=== PATIENT | female | born 2000 | race Caucasian/White ===

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

== ENCOUNTER 2020-01-05 13:41 | Emergency (ER) | payer OTHER ==
[~2020-01-05] VITALS: Ht 165.1 cm; Wt 108.0 kg
[2020-01-05] MEDS ORDERED: ARIP1TAB2 (13:50)
[2020-01-05] MEDS ORDERED: DULO1CAP6 (13:50)
[2020-01-05] MEDS ORDERED: NS 1,000 ML IV ONE (14:15)
[2020-01-05 14:42] LABS: BASO # 0.1 10^3/uL (0.0-0.2); BASO % 0.5 % (0.0-1.0); EOS # 0.4 10^3/uL (0.0-0.5); EOS % 4.4 % (0.0-3.0); HEMATOCRIT 42.2 % (36.0-47.0); HEMOGLOBIN 14.4 g/dl (12.0-15.5); LYMPH # 2.3 10^3/uL (1.5-5.0); LYMPH % 23.7 % (24.0-44.0); MEAN CORPUSCULAR HEMOGLOBIN 30.3 pg (27.0-33.0); MEAN CORPUSCULAR HGB CONC 34.1 g/dl (32.0-36.5); MEAN CORPUSCULAR VOLUME 88.7 fl (80.0-96.0); MONO # 0.6 10^3/uL (0.0-0.8); NEUTROPHILS # 6.4 10^3/uL (1.5-8.5); NEUTROPHILS % 65.2 % (36.0-66.0); PLATELET COUNT, AUTOMATED 263 10^3/uL (150-450); RED BLOOD COUNT 4.76 10^6/uL (4.00-5.40); WHITE BLOOD COUNT 9.8 10^3/uL (4.0-10.0)
[2020-01-05 15:18] LABS: AMPHETAMINES URINE REFLEX NEGATIVE (NEGATIVE); BARBITURATES URINE REFLEX NEGATIVE (NEGATIVE); BENZODIAZEPINES URINE REFLEX NEGATIVE (NEGATIVE); COCAINE METABOLITE URINE REFLE NEGATIVE (NEGATIVE); METHADONE URINE REFLEX NEGATIVE (NEGATIVE); OPIATES URINE REFLEX NEGATIVE (NEGATIVE); PHENCYCLIDINE URINE REFLEX NEGATIVE (NEGATIVE)
[2020-01-05 15:26] LABS: CANNABINOIDS URINE REFLEX PENDING CONFIRMATION (NEGATIVE)
[2020-01-05 15:34] LABS: ALBUMIN 3.5 GM/DL (3.2-5.2); ALT/SGPT 25 U/L (12-78); BILIRUBIN,DIRECT < 0.1 MG/DL (0.0-0.2); BILIRUBIN,TOTAL 0.5 MG/DL (0.2-1.0); HCG, SERUM QUANTITATIVE 78802 MIU/ML; LIPASE 56 U/L (73-393); TOTAL PROTEIN 7.2 GM/DL (6.4-8.2)
[2020-01-05 16:44] VITALS: BP 119/61
--- NOTE | 2020-01-05 17:03 | REP ---
HISTORY: Abdominal pain. Multiple ultrasonographic images of the uterus show an anechoic structure within the uterus with increased echo surrounding it consistent with a decidual reaction. Within the gestational sac there is echogenic material consistent with a pole, the mean crown rump length measurement of which is consistent with an 8 week 3 day gestational. Based on that the estimated date of delivery is 08/13/2020. Doppler interrogation of the heart shows a heart rate of 183 beats per minute. No chorionic or subchorionic abnormality was noted. Evaluation of the maternal adnexal spaces showed no abnormalities. IMPRESSION: Early OB ultrasound as described above. Electronically Signed by Vishal Adamson DO 01/05/2020 05:07 P
== END 2020-01-05 16:50 | disposition home or self-care (01) ==
LOC: M ED 13:41
DX: Z32.01 Encounter for pregnancy test, result positive (principal); R11.2 Nausea with vomiting, unspecified; E11.9 Type 2 diabetes mellitus without complications; F33.9 Major depressive disorder, recurrent, unspecified; F41.9 Anxiety disorder, unspecified; G47.30 Sleep apnea, unspecified; Z79.899 Other long term (current) drug therapy; Z3A.08 8 weeks gestation of pregnancy; F17.210 Nicotine dependence, cigarettes, uncomplicated
CPT/HCPCS: 76801; 80047; 80076; 80307; 81001; 83690; 84702; 85025; 93976; 96360; 99284; G0480

== ENCOUNTER → 2020-02-14 | Outpatient (REF) | payer OTHER ==
[~2020-02-14] MED LIST changes: +ARIP1TAB2; +DULO1CAP6
== END ==
LOC: M PLALAB 10:25
PROVIDERS: ATTEND Advanced Practice Midwife
DX: O99.211 Obesity complicating pregnancy, first trimester (principal)

== ENCOUNTER → 2020-03-21 | Outpatient (CLI) | payer OTHER ==
--- NOTE | 2020-03-21 15:44 | REP ---
OBSTETRIC SONOGRAPHY: HISTORY: Supervision of for anatomy. FINDINGS: Scanning through the gravid uterus demonstrates a single living intrauterine gestation in a cephalic lie. motion is observed and heart rate is recorded at 147 beats per minute. An anterior grade 1 placenta is seen without evidence of previa or abruption. Amniotic fluid is subjectively normal. Closed cervical length is measured at 3.8 cm viewed transabdominally. No extrauterine abnormality is observed. There has been appropriate interval growth. A linear soft tissue band is visualized at the posterior aspect of the placenta. Question amniotic sheet. There is an echogenic focus in the left ventricle heart with left and right ventricular outflow tract views, face and profile, diaphragm, left-sided stomach, abdominal wall cord insertion, three-vessel cord, kidneys and bladder, spine, upper and lower extremities. BIOMETRY CHART: BPD 4.4 cm = 19 weeks 1 day HC 16.2 cm = 19 weeks 0 days AC 13.2 cm = 18 weeks 5 days FL 3.1 cm = 19 weeks 4 days HL 3.0 cm = 19 weeks 6 days HC/AC ratio normal 1.22 Cephalic index normal 0.75. Estimated weight 274 grams, 0 pounds 9 ounces, 41st percentile for 19 weeks 2 days. IMPRESSION: Single living intrauterine gestation at 19 weeks 0 days by today's composite sonographic criteria. Expected gestational age estimate based on prior sonography is 19 weeks 2 days. LORRIE by prior sonography August 16, 2020. There is a small echogenic focus in the left ventricle likely chordae tendineae. There is a thick band like structure at the posterior aspect of the placenta consistent with an amniotic sheet. Electronically Signed by Freddie Gramajo MD 03/21/2020 04:01 P
== END ==
LOC: M WHC 13:20
PROVIDERS: ATTEND Advanced Practice Midwife
DX: O99.212 Obesity complicating pregnancy, second trimester (principal); E66.9 Obesity, unspecified; Z3A.19 19 weeks gestation of pregnancy

== ENCOUNTER → 2020-06-07 | Outpatient (CLI) | payer OTHER ==
[2020-06-07 17:41] LABS: HEMATOCRIT 40.1 % (36.0-47.0); MEAN CORPUSCULAR HEMOGLOBIN 30.9 pg (27.0-33.0); MEAN CORPUSCULAR HGB CONC 32.4 g/dl (32.0-36.5); MEAN CORPUSCULAR VOLUME 95.2 fl (80.0-96.0); PLATELET COUNT, AUTOMATED 265 10^3/uL (150-450); RED BLOOD COUNT 4.21 10^6/uL (4.00-5.40); WHITE BLOOD COUNT 12.2 10^3/uL (4.0-10.0)
== END ==
LOC: M PLALAB 13:47
PROVIDERS: ATTEND Advanced Practice Midwife
DX: O99.212 Obesity complicating pregnancy, second trimester (principal)

== ENCOUNTER → 2020-07-17 | Outpatient (REF) | payer OTHER | LOC: M SFHCWAGY 13:14 | PROVIDERS: ATTEND Advanced Practice Midwife | DX: O99.213 Obesity complicating pregnancy, third trimester (principal) ==

== ENCOUNTER 2020-08-15 11:47 | Inpatient (IN) | payer OTHER ==
[~2020-08-15] VITALS: Ht 165.1 cm; Wt 114.5 kg
[2020-08-15] VITALS (10 sets, daily range): BP systolic 100–141; BP diastolic 55–79
[2020-08-15] MEDS ORDERED: CLAR10CA3 PO (12:11)
[2020-08-15] MEDS ORDERED: PRENTAB9 PO (12:14)
[2020-08-15] MEDS: LR 1,000 ML IV SCH (12:29)
[2020-08-15] MEDS ORDERED: LACTATED RINGER'S 1000 ML IV STA (12:29)
[2020-08-15] MEDS ORDERED: miSOPROStol 50 MCG 1/2 TAB (S0191) PV ONE (12:45)
[2020-08-15] MEDS ORDERED: PROMETHAZINE INJ 25 MG/ML VIAL (J2550) IV PRN (13:15)
[2020-08-15] MEDS ORDERED: BUTORPHANOL 2 MG/ML INJ (J0595) IV PRN (13:15)
[2020-08-15 14:04] LABS: HEMATOCRIT 39.8 % (36.0-47.0); HEMOGLOBIN 12.8 g/dl (12.0-15.5); MEAN CORPUSCULAR HEMOGLOBIN 30.2 pg (27.0-33.0); MEAN CORPUSCULAR HGB CONC 32.2 g/dl (32.0-36.5); MEAN CORPUSCULAR VOLUME 93.9 fl (80.0-96.0); PLATELET COUNT, AUTOMATED 265 10^3/uL (150-450); RED BLOOD COUNT 4.24 10^6/uL (4.00-5.40); WHITE BLOOD COUNT 9.2 10^3/uL (4.0-10.0)
--- NOTE | 2020-08-15 14:35 | HPEPDOC ---
Obstetrical History & Physical General Date of Admission Aug 15, 2020 at 11:47 History of Present Illness Marya is a 20yo with SIUP at 40w2d by 1st trimester u/s presenting today for scheduled elective IOL. She feels well overall, just nervous. No lof, vb, regular ctx. Good movement. Chief Complaint: Induction of labor Information Provided By: Patient Care Care: Good Care Dating Final EDC: Aug 13, 2020 Final EDC by: 1st trimester (US) Antepartum Course Diagnos(e)s Obesity, early 1hr glucola 121 Past Medical History Past Obstetrical History : Past Obstetrical History: Primgravida Past Medical History Medical History Obesity, ALBER (has CPAP), PCOS with oligomenorrhea, depression/anxiety/bipolar disorder Surgical History: Denies/None Family History Significant Family History: Other (maternal grandma breast cancer, diabetes on father's side) Social History Marital Status: Single Family situation: Spouse/partner home Psychosocial History: Anxiety, Bipolar, Depression * Smoker: former Smoker (quit with ) Drugs: marijuana (prior to ) Allergies Coded Allergies: No Known Allergies (Unverified , 03/07/17) Medications Scheduled No.137/Iron/Folic Acd ( Vitamin Tablet) 1 Each Tablet, 1 TAB PO DAILY Scheduled PRN Loratadine (Claritin) 10 Mg Capsule, 10 MG PO PRN PRN for CONGESTION Physical Examination Physical Examination GENERAL: Alert and oriented times three. BREAST: . ABDOMEN: Gravid and non-tender to touch. Obese. FETUS: Is vertex by bedside TAUS EXTREMITIES: trace edema BLE Pertinent Laboratoy Data Blood Type: A+ RBC Antibody Screen: Negative HIV: Negative Hepatitis B: Negative Hepatitis C: Negative Rapid Plasma Reagin: Nonreactive Rubella: Immune Chlamydia/Gonorrhea: Negative Group B Streptococcus: Negative Glucose Tolerance Test: 97 Anatomy Ultrasound Ultrasound Date: Mar 21, 2020 Placenta Location: Anterior Normal Anatomy: Yes (EIF) Placenta Previa: No (amniotic sheet questionably present as a band near the edge of placenta) Steroid Therapy Steroid Therapy: No Vaginal Examination Dilation: Fingertip Effacement: 70% Station: -3 Cervical Consistency: Soft Cervical Position: Middle Presentation: Cephalic presentation (by TAUS) Assessment Heart Rate (FHR): 140 Variability: Moderate Accelerations: Positive Decelerations: None Tocometer Contractions: Yes Frequency: irregular Assessment/Plan Assessment Marya is a 20yo with SIUP at 40w2d by 1st trimester u/s presenting today for scheduled elective IOL. Cephalic by TAUS. Vitals wnl, benign exam. SCE ft/75/-3. 50mcg cytotec placed vaginally. Cat I FHRT with no ctx. /PMhx significant for: Obesity, ALBER (has CPAP), PCOS with oligome norrhea, depression/anxiety/bipolar disorder (no meds) Plan Admit and orient. 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 Diet: regular for lunch then clear liquids Group B Streptococcus (GBS) negative Labs and intravenous (IV) per unit protocol. Counseled on cytotec, Pitocin and induction of labor (IOL). Lactated Ringers (LR): Bolus 800 mL, then at 125 mL/hr. Anticipate normal spontaneous delivery () Candidate for epidural in active labor, stadol/phenergan IV prn in latent labor Sully Sood MD Aug 15, 2020 13:12
[2020-08-15] MEDS ORDERED: ACETAMINOPHEN 500 MG TAB PO PRN (18:30)
[2020-08-15] MEDS ORDERED: OXYTOCIN DRIP 30 UNITS in IV 1 EA IV SCH (18:45)
--- NOTE | 2020-08-15 18:49 | IPNPDOC ---
Text Note Date of Service The patient was seen on 08/15/20. NOTE Intrapartum Note Pt doing well now 4hr after PV cytotec 50mcg. Feels urge to urinate frequently, will check UA/Ucx when sinha placed later for epidural just to rule out UTI (she is up to bathroom every 20min or so trying to void)- could just be ctx, but will ensure not infectious etiology. Has headache 11/06, requests tylenol. Vitals wnl, afebrile Cat I FHRT with ctx q1-2min SCE: /-3, sinha cervical bulb placed with 40cc NS Plan to initiate pitocin per protocol and titrate up to 6mu while sinha cervical bulb is in place, then once sinha cervical bulb comes out, can continue to titrate up per protocol to adequate ctx pattern CEFM Will continue to closely observe Safe to proceed Sully Sood MD VS,Amarilis, I+O VS, Amarilis I+O Laboratory Tests 08/15/20 13:40 Vital Signs Date Time Temp Pulse Resp B/P (MAP) Pulse Ox O2 Delivery O2 Flow Rate FiO2 08/15/20 15:01 97.8 88 18 126/79 (95) Sully Sood MD Aug 15, 2020 18:49
[2020-08-15 20:28] LABS: AMORPHOUS SEDIMENT SMALL (NEGATIVE); APPEARANCE, URINE CLOUDY (CLEAR); BACTERIA, URINE AUTO NEGATIVE (NEGATIVE); BILIRUBIN, URINE AUTO NEGATIVE (NEGATIVE); BLOOD, URINE BLOOD 1+ (NEGATIVE); COLOR, URINE YELLOW (YELLOW); GLUCOSE, URINE (UA) AUTO NEGATIVE (NEGATIVE); KETONE, URINE AUTO NEGATIVE (NEGATIVE); LEUKOCYTE ESTERASE, URINE AUTO NEGATIVE (NEGATIVE); MUCUS, URINE SMALL (NEGATIVE); NITRITE, URINE AUTO NEGATIVE (NEGATIVE); PROTEIN, URINE AUTO NEGATIVE (NEGATIVE); RBC, URINE AUTO 2 /HPF (0-3); SPECIFIC GRAVITY URINE AUTO 1.012 (1.002-1.035); SQUAMOUS EPITHELIAL CELL UR AU 6 /HPF (0-6); UROBILINOGEN, URINE AUTO 0.2 mg/dL (0.0-2.0); WBC, URINE AUTO 1 /HPF (0-3)
[2020-08-16] VITALS (47 sets, daily range): BP systolic 103–167; BP diastolic 52–99
--- NOTE | 2020-08-16 06:42 | IPNPDOC ---
Text Note Date of Service The patient was seen on 08/16/20. NOTE Intrapartum Note Marya has not been coping adequately overnight. She received IV stadol/phenergan for pain and slept a short duration. Oropeza cervical bulb came out at 2350. RN checked SCE at 0455 and she was 4/75/-3. Pitocin was started at 0244 and titrated up to 4mu, but she has been extremely anxious and hard to keep baby on monitor since she moves so much. This morning she adamantly wants to get into the tub. Vitals wnl, afebrile Overall Cat I FHRT, +accels, -decels, mod jagdish Discussed with patient that we can stop pitocin, let her get into the tub for a bit, she can have a light breakfast, and then we will restart pitocin with plan to titrate up to adequacy. Safe to proceed Sully Sood MD VS,Amarilis, I+O VS, Amarilis I+O Laboratory Tests 08/15/20 13:40 Vital Signs Date Time Temp Pulse Resp B/P (MAP) Pulse Ox O2 Delivery O2 Flow Rate FiO2 08/16/20 05:35 85 20 117/71 (86) 08/15/20 23:02 97.8 I&O- Last 24 Hours up to 6 AM 08/16/20 06:00 Intake Total 1600 ml Output Total 1150 ml Balance 450 ml Sully Sood MD Aug 16, 2020 06:42
--- NOTE | 2020-08-16 08:49 | IPNPDOC ---
Text Note Date of Service The patient was seen on 08/16/20. NOTE Progress Has had time in the tub and breakfast. Cat I tracing, rare UC SVE /-3, far posterior Resume pitocin. Will obtain early epidural due to pt fear of discomfort. Answered many questions RT labor and delivery VS,Fishbone, I+O VS, Fishbone, I+O Laboratory Tests 08/15/20 13:40 Vital Signs Date Time Temp Pulse Resp B/P (MAP) Pulse Ox O2 Delivery O2 Flow Rate FiO2 08/16/20 07:28 97.5 106 18 136/81 (99) Room Air I&O- Last 24 Hours up to 6 AM 08/16/20 06:00 Intake Total 1600 ml Output Total 1150 ml Balance 450 ml Gloria Smith CNM Aug 16, 2020 08:49
[2020-08-16] MEDS ORDERED: FENTANYL 2MCG/ML ROPIVACAINE 0.2% IN 0.9% NACL 100ML IVBAG As Ordered ONE (09:08)
[2020-08-16] MEDS ORDERED: EPIDURAL COMMENT XX SCH (10:45)
[2020-08-16] MEDS ORDERED: ONDANSETRON 4MG/2ML VIAL IV PRN (10:45)
[2020-08-16] MEDS ORDERED: ePHEDrine SULFATE 25 MG/5 ML(5MG/ML) SYRINGE IV PRN (10:45)
[2020-08-16] MEDS ORDERED: EPIDURAL/PCA KEYS XX PRN (10:45)
[2020-08-16] MEDS ORDERED: REFRIGERATOR IV KEYS XX PRN (10:45)
[2020-08-16] MEDS ORDERED: LACTATED RINGER'S 1000 ML IV PRN (10:45)
[2020-08-16] MEDS ORDERED: NALOXONE INJ 0.4MG/1ML VIAL (J2310 PER 1MG) IV PRN (10:45)
[2020-08-16] MEDS: FENTANYL/ROPIVACAINE/NACL BAG 100 ML EPIDURAL SCH ×2 (10:45→17:03)
[2020-08-16] MEDS ORDERED: diphenhydrAMINE 50MG/ML VIAL (J1200) IV PRN (10:45)
--- NOTE | 2020-08-16 15:16 | IPNPDOC ---
Text Note Date of Service The patient was seen on 08/16/20. NOTE Progress Remains comfortable with epidural UC difficult to trace due to habitus Pitocin 8mu Cat I tracing AROM large amount clear fluid IUPC and FSE placed. VS,Fishbone, I+O VS, Fishbone, I+O Vital Signs Date Time Temp Pulse Resp B/P (MAP) Pulse Ox O2 Delivery O2 Flow Rate FiO2 08/16/20 13:29 97 107/57 (74) 08/16/20 11:02 96.7 20 08/16/20 07:28 Room Air I&O- Last 24 Hours up to 6 AM 08/16/20 06:00 Intake Total 1600 ml Output Total 1150 ml Balance 450 ml Gloria Smith CNM Aug 16, 2020 15:16
[2020-08-16] MEDS: LR 1,000 ML IV SCH (21:26)
[2020-08-16] MEDS ORDERED: LACTATED RINGER'S 1000 ML IV STA (22:22)
--- NOTE | 2020-08-16 22:26 | IPNPDOC ---
Text Note Date of Service The patient was seen on 08/16/20. NOTE Progress Pitocin @ 14mu UC 2-3minutes apart x 60+ seconds FH 145, Cat I SVE unchanged Pitocin off. Dr Hernandez alerted to arrest of dilation VS,Fishbone, I+O VS, Fishbone, I+O Vital Signs Date Time Temp Pulse Resp B/P (MAP) Pulse Ox O2 Delivery O2 Flow Rate FiO2 08/16/20 20:09 112 18 117/71 (86) 08/16/20 19:23 97.2 98 Room Air I&O- Last 24 Hours up to 6 AM 08/16/20 06:00 Intake Total 1600 ml Output Total 1150 ml Balance 450 ml Gloria Smith CNM Aug 16, 2020 22:26
[2020-08-16] MEDS ORDERED: AZITHROMYCIN INJ 500 MG, VIAL MATE ADAPTER 1 EACH in D5W 250 ML IV ONE (22:30)
[2020-08-16] MEDS ORDERED: ceFAZolin SOD 2 GM in IV 1 EA IV ONE (22:30)
[2020-08-16] MEDS ORDERED: BICITRA 30ML SOLN UDC PO ONE (22:30)
[2020-08-16] MEDS ORDERED: KETOROLAC 60MG 2ML VIAL As Ordered ONE (22:51)
[2020-08-16] MEDS ORDERED: PHENYLephrine HCL 500 MCG/5 ML (100MCG/ML) SYRINGE (J2370) As Ordered ONE (22:51)
[2020-08-16] MEDS ORDERED: dexameTHASONE 4 MG/ML 1ML VIAL (J1100 PER 1MG) As Ordered ONE (22:51)
[2020-08-16] MEDS ORDERED: ONDANSETRON 4MG/2ML VIAL As Ordered ONE (22:51)
[2020-08-16] MEDS ORDERED: ePHEDrine SULFATE 25 MG/5 ML(5MG/ML) SYRINGE As Ordered ONE (22:51)
[2020-08-16] MEDS ORDERED: OXYTOCIN 30 UNITS IN 0.9% NaCl 500ML IV BAG (J2590) As Ordered ONE (22:52)
[2020-08-16] MEDS ORDERED: OXYTOCIN INJ 10 UNITS/ML VIAL (J2590) As Ordered ONE (22:52)
[2020-08-16] MEDS ORDERED: MORPHINE PRES-FREE INJ 10 MG/10 ML VIAL (J2274) As Ordered ONE (22:59)
[2020-08-16] MEDS ORDERED: METOCLOPRAMIDE INJ 10MG/2ML VIAL (J2765 PER 1) As Ordered ONE (23:21)
[2020-08-16] MEDS ORDERED: KETAMINE HCL 200 MG/20 ML VIAL As Ordered ONE (23:30)
[2020-08-16] MEDS ORDERED: MIDAZOLAM INJ 2MG/2ML VIAL (J2250 PER 1MG) As Ordered ONE (23:30)
[2020-08-16] MEDS ORDERED: ESMOLOL INJ 100MG/10ML VIAL As Ordered ONE (23:39)
[2020-08-16] MEDS ORDERED: OXYTOCIN DRIP 30 UNITS in IV 1 EA IV SCH (23:56)
[2020-08-16] MEDS ORDERED: METHYLERGONOVINE MALEATE 0.2 MG/ML VIAL (J2210) IM STA (23:59)
[2020-08-17] VITALS (9 sets, daily range): BP systolic 118–140; BP diastolic 69–90
[2020-08-17] MEDS ORDERED: MEASLES,MUMPS,RUBELLA VACCINE INJ (MMR-II) (90707) SC SCH
[2020-08-17] MEDS ORDERED: RHOGAM 300 MCG (1500 IU) INJ (J2790) IM SCH
[2020-08-17] MEDS ORDERED: PERCOCET 5MG/325MG TAB PO PRN
[2020-08-17] MEDS ORDERED: DOCUSATE SODIUM 100 MG CAP PO PRN
--- NOTE | 2020-08-17 00:08 | ROOPDOC ---
[facility] Report Of Operation Report of Operation DATE OF PROCEDURE: 08/16/20 Report of operation Preoperative diagnosis: 40+ weeks, arrest of dilation Postoperative diagnosis: same Procedure: Primary low transverse section Surgeon: Rogelio Champagne M.D. Asst.: Larry Lyon MD EBL: 600 ml. Urine output: 100 mL's. Findings: 7 lbs. 3 oz. female , Apgars 8 and 9 g normal uterus, fallopian tubes, ovaries. Occiput posterior and asynclitic vertex. Operative summary: Patient taken to the operative room where epidural anesthesia was adequate. She is prepped draped sterile fashion in the supine position. A Oropeza catheter was placed. A Pfannenstiel skin incision was made with scalpel. Fascia was incised and extended bilaterally. The peritoneal cavity was entered. A Mobius retractor was placed. A bladder flap was created. A curvilinear incision was made in lower uterine segment until Clear fluid was noted. The incision was extended manually. The was delivered from the vertex position without difficulty. Cord was double clamped and cut. The infant was handed waiting nurses. . The placenta was expressed. Uterus was closed with O- Vicryl in a running locked fashion. A second imbricating layer of Vicryl was placed. Peritoneum was closed with 2-0 Vicryl a running fashion. Fascia was closed with 0 Vicryl in running fashion. Skin was closed 4-0 Monocryl subcuticular sutures. Sponge, instrument and needle counts were correct. Larry Lyon MD, assisted with all aspects of the procedure. He helped each layer of the incision and deliver the fetus. ROGELIO CHAMPAGNE MD Aug 17, 2020 00:08
[2020-08-17] MEDS ORDERED: oxyCODONE 5MG TAB PO PRN (01:00)
[2020-08-17] MEDS ORDERED: ONDANSETRON 4MG/2ML VIAL IV PRN ×3 (01:00→01:30)
[2020-08-17] MEDS ORDERED: diphenhydrAMINE 50MG/ML VIAL (J1200) IV PRN ×2 (01:00→01:30)
[2020-08-17] MEDS ORDERED: MEPERIDINE INJ 25 MG/ML VIAL (J2175) IV PRN (01:00)
[2020-08-17] MEDS ORDERED: fentaNYL 100 MCG/2 ML INJECTION (J3010) IV PRN (01:00)
[2020-08-17] MEDS ORDERED: HYDROMORPHONE HCL 0.5 MG/ 0.5 ML SYRINGE (J1170 PER 1) IV PRN (01:00)
[2020-08-17] MEDS ORDERED: NALOXONE INJ 0.4MG/1ML VIAL (J2310 PER 1MG) IV PRN ×2 (01:30)
[2020-08-17] MEDS ORDERED: NALBUPHINE HCL 10 MG/ML AMP (J2300) IV PRN (01:30)
[2020-08-17] MEDS ORDERED: METOCLOPRAMIDE INJ 10MG/2ML VIAL (J2765 PER 1) IV PRN (01:30)
[2020-08-17] MEDS: LR 1,000 ML IV SCH ×2 (02:43→10:11)
[2020-08-17] MEDS: KETOROLAC 30 MG/ML 1ML VIAL IV SCH ×3 (04:55→16:44)
--- NOTE | 2020-08-17 07:11 | IPNPDOC ---
Text Note Date of Service The patient was seen on 08/17/20. NOTE Postop Reports adequate pain management. . Oropeza draining clear yellow urine. VSS, afebrile, normotensive Breasts soft, nipples intact Fundus firm Dressing dry and intact Lochia rubra scant without odor PO #1 Gradually advance diet and activity. Anticipate D/C in am VS,Fishbone, I+O VS, Fishbone, I+O Vital Signs Date Time Temp Pulse Resp B/P (MAP) Pulse Ox O2 Delivery O2 Flow Rate FiO2 08/17/20 06:00 96.6 74 18 118/81 (93) 97 Room Air I&O- Last 24 Hours up to 6 AM 08/17/20 05:59 Intake Total 1500 ml Output Total 1715 ml Balance -215 ml Gloria Smith CNM Aug 17, 2020 07:11
[2020-08-17 07:16] LABS: HEMATOCRIT 36.4 % (36.0-47.0); HEMOGLOBIN 11.9 g/dl (12.0-15.5); MEAN CORPUSCULAR HEMOGLOBIN 30.9 pg (27.0-33.0); MEAN CORPUSCULAR HGB CONC 32.7 g/dl (32.0-36.5); MEAN CORPUSCULAR VOLUME 94.5 fl (80.0-96.0); PLATELET COUNT, AUTOMATED 252 10^3/uL (150-450); RED BLOOD COUNT 3.85 10^6/uL (4.00-5.40); WHITE BLOOD COUNT 19.9 10^3/uL (4.0-10.0)
[2020-08-17] MEDS ORDERED: PRENATAL VITAMINS CHEWABLE TABLET PO SCH (09:00)
[2020-08-17] MEDS: PERCOCET 5MG/325MG TAB PO PRN (15:53)
[2020-08-17] MEDS ORDERED: SLF 3 ML SYR IV PRN (18:00)
[2020-08-17] MEDS: SLF 3 ML SYR IV SCH (22:15)
[2020-08-18] MEDS: PERCOCET 5MG/325MG TAB PO PRN (00:30)
[2020-08-18] MEDS ORDERED: IBUPROFEN 800 MG TAB PO SCH (01:00)
[2020-08-18 02:00] VITALS: BP 124/80
[2020-08-18 06:00] VITALS: BP 116/68
[2020-08-18] MEDS: SLF 3 ML SYR IV SCH (06:00)
[2020-08-18] MEDS ORDERED: OXYC1TAB23 PO (09:35)
[2020-08-18] MEDS ORDERED: IBUP80TA PO (09:35)
--- NOTE | 2020-08-18 09:51 | DS.PDOC ---
Discharge Summary General Date of Admission Aug 15, 2020 at 11:47 Date of Discharge Aug 18, 2020 Attending Physician: ROGELIO CHAMPAGNE MD Discharge Summary PROCEDURES PERFORMED DURING STAY: section. ADMITTING DIAGNOSES: 1. 40 2/7 weeks. DISCHARGE DIAGNOSES: 1. delivered. COMPLICATIONS/CHIEF COMPLAINT: Induction. HISTORY OF PRESENT ILLNESS: 20 yo G1 at 40 2/7 weeks presents for induction of labor. HOSPITAL COURSE: Pt had induction initiated with misoprostol. She eventually had A Cook's Catheter placed, followed by Pitocin. AROM was performed after the Catheter came out. She was subsequently diagnosed with Arrest of dilation. She proceeded to cesareann section for a 7 lb 3 oz female on 08/16/2020. Her post operative course was unremarkable. She was stable for discharge on 08/18/2020. DISCHARGE MEDICATIONS: Please see below. ALLERGIES: Please see below. PHYSICAL EXAMINATION ON DISCHARGE: VITAL SIGNS: Please see below. GENERAL: NAD HEENT: WNL CARDIOVASCULAR EXAMINATION: RRR RESPIRATORY EXAMINATION: CTA ABDOMINAL EXAMINATION: NT, dressing C/D/I EXTREMITIES: NT LABORATORY DATA: Please see below. PROGNOSIS: good ACTIVITY: As tolerated. DIET: Reg DISPOSITION: .home DISCHARGE INSTRUCTIONS: 1. d/c home 2. remove dressing day #5 3. Pain management/ activity level reviewed. DISCHARGE CONDITION: Stable TIME SPENT ON DISCHARGE: Greater than 10 minutes. Vital Signs/I&Os Vital Signs Date Time Temp Pulse Resp B/P (MAP) Pulse Ox O2 Delivery O2 Flow Rate FiO2 08/18/20 06:00 97.9 68 20 116/68 (84) 97 Room Air I&O- Last 24 Hours up to 6 AM 08/18/20 05:59 Intake Total 950 ml Output Total 720 ml Balance 230 ml Microbiology Microbiology 08/15/20 Urine Culture - Final, Complete Corynebacterium Species Lactobacillus Species Discharge Medications Scheduled Ibuprofen (Ibuprofen) 800 Mg Tablet, 800 MG PO Q8H No.137/Iron/Folic Acd ( Vitamin Tablet) 1 Each Tablet, 1 TAB PO DAILY, (Reported) Scheduled PRN Loratadine (Claritin) 10 Mg Capsule, 10 MG PO PRN PRN for CONGESTION, (Reported) Oxycodone HCl/Acetaminophen (Oxycodone-Acetaminophen 5-325) 1 Each Tablet, 1 TAB PO TIDP PRN for pain Allergies Coded Allergies: No Known Allergies (Unverified , 03/07/17) ROGELIO CHAMPAGNE MD Aug 18, 2020 09:51
== END 2020-08-18 15:00 | disposition home or self-care (01) | DRG 540 ==
LOC: M LDI 11:47 → M OBS 08-17 01:30
PROVIDERS: ADMIT Obstetrics & Gynecology; ATTEND Obstetrics & Gynecology
PROC: 3E0DXGC Introduction of Other Therapeutic Substance into Mouth and Pharynx, External Approach (ICD-10-PCS; 2020-08-15)
PROC: 3E033VJ Introduction of Other Hormone into Peripheral Vein, Percutaneous Approach (ICD-10-PCS; 2020-08-15)
PROC: 10D00Z1 Extraction of Products of Conception, Low, Open Approach (ICD-10-PCS; principal; 2020-08-16 22:48)
DX: O48.0 Post-term pregnancy (principal); Z37.0 Single live birth; Z3A.40 40 weeks gestation of pregnancy; Z87.891 Personal history of nicotine dependence; E66.9 Obesity, unspecified; O99.214 Obesity complicating childbirth; G47.33 Obstructive sleep apnea (adult) (pediatric); O99.354 Diseases of the nervous system complicating childbirth; O62.0 Primary inadequate contractions

== ENCOUNTER 2021-03-22 23:00 | Outpatient (CLI) | payer OTHER ==
[~2021-03-22] VITALS: Ht 162.6 cm; Wt 94.5 kg
[~2021-03-22 23:00] MED LIST changes: -ARIP1TAB2; +ARIP1TAB43; +CLAR10CA3 PO; +IBUP80TA PO; +OXYC1TAB23 PO; +PRENTAB9 PO
[2021-03-22 23:21] VITALS: BP 129/79
--- NOTE | 2021-03-23 00:22 | IPNPDOC ---
Text Note Date of Service The patient was seen on 03/23/21. NOTE S: 20 yo at 19 2/7 weeks by LMP c/w 12 week ultrasound (EDC=08/15/2021) presents after a sudden episode of vaginal bleeding at home. She was just sitting when it happened. She had no pain. The bleeding was enough to soak a pad. She started to cramp after she came to the hospital. [place] earlier in the morning. O: AVSS NAD Abd: NT, soft, gravid SSE: small amount of blood in the vagina, cx visually appeared closed bedside ultrasound: 19 week fetus, FH rate 140's. good movement, normal IGOR. posterior low lying placenta, no evidence of abruption blood type=A+ A/P 20 yo at 19 2/7 weeks by LMP c/w 12 week ultrasound presents with vaginal bleeding, likely from placenta encourage pelvic rest Pt currently stable with scant bleeding No other intervention due to early gestational age VS,Fishbone, I+O VS, Fishbone, I+O Vital Signs Date Time Temp Pulse Resp B/P (MAP) Pulse Ox O2 Delivery O2 Flow Rate FiO2 03/22/21 23:21 98.7 68 16 129/79 (96) ROGELIO CHAMPAGNE MD Mar 23, 2021 00:22
== END 2021-03-23 01:20 | disposition home or self-care (01) ==
LOC: M LDO 23:00
PROVIDERS: ATTEND Specialist
DX: O20.9 Hemorrhage in early pregnancy, unspecified (principal); Z3A.19 19 weeks gestation of pregnancy; O26.892 Other specified pregnancy related conditions, second trimester; R25.2 Cramp and spasm

== ENCOUNTER 2021-03-29 08:29 | Outpatient (CLI) | payer OTHER ==
[~2021-03-29] VITALS: Ht 162.6 cm; Wt 93.5 kg
[2021-03-29 08:53] VITALS: BP 148/90
--- NOTE | 2021-03-29 09:55 | REP ---
INDICATION: 20 weeks, PROM COMPARISON: None. TECHNIQUE: Transabdominal obstetrical ultrasound with color Doppler evaluation. FINDINGS: Examination demonstrates a single live intrauterine in transverse (head to maternal right) presentation. motion is identified by technologist. Placenta is noted posterior and grade 0 without evidence for placenta previa or abruption. Amniotic fluid volume is normal. Cervix measures 3.2 cm in length and appears closed. IGOR: 11.9 cm (9.0-20.8) Selected gestational age: 19 weeks 1 day with LORRIE 08/22/2021. Gestational age by current measurements 19 weeks 4 days with LORRIE 08/19/2021. FHR equals 153 beats per minute. Estimated weight 295 grams. Anatomical assessment demonstrates normal structures including cranium, choroid plexus, cavum, cerebellum/posterior fossa, facial features, diaphragm, stomach, cord insertion/three-vessel cord, kidneys/bladder, and extremities. IMPRESSION: Single live intrauterine in transverse lie. Amniotic fluid volume is normal. Anatomical assessment is incomplete and warrants further evaluation. <Electronically signed by Fausto Hernandez > 03/29/21 0992
[2021-03-29 09:56] LABS: BASO # 0.1 10^3/uL (0.0-0.2); BASO % 0.4 % (0.0-1.0); EOS # 0.4 10^3/uL (0.0-0.5); EOS % 3.8 % (0.0-3.0); HEMATOCRIT 40.1 % (36.0-47.0); HEMOGLOBIN 13.3 g/dl (12.0-15.5); LYMPH % 18.2 % (24.0-44.0); MEAN CORPUSCULAR HEMOGLOBIN 29.8 pg (27.0-33.0); MEAN CORPUSCULAR HGB CONC 33.2 g/dl (32.0-36.5); MEAN CORPUSCULAR VOLUME 89.9 fl (80.0-96.0); MONO # 0.6 10^3/uL (0.0-0.8); MONO % 5.3 % (2.0-8.0); NEUTROPHILS % 71.9 % (36.0-66.0); PLATELET COUNT, AUTOMATED 257 10^3/uL (150-450); RED BLOOD COUNT 4.46 10^6/uL (4.00-5.40); WHITE BLOOD COUNT 11.2 10^3/uL (4.0-10.0)
[2021-03-29 11:03] LABS: GC DNA AMPLIFICATION NEGATIVE (NEGATIVE)
[2021-03-29 11:04] VITALS: BP 133/63
[2021-03-29 14:00] VITALS: BP 131/62
[2021-03-29 18:00] VITALS: BP 132/78
[2021-03-29] MEDS ORDERED: AZITHROMYCIN 250MG TABLET PO ONE (19:50)
--- NOTE | 2021-03-29 20:46 | HPEPDOC ---
Obstetrical History & Physical General Date of Admission History of Present Illness 20 yo female at 20 1/7 weeks gestation by LMP c/w 12 week ultrasound (EC=08/15/2021) presents with leakage of fluid per vagina starting at 4 am on the day of presentation to the hospital. She leaked several more times. The fluid was blood tinged. The fluid was enough to soak a pad. It did not run down on to the floor. She has mild lower abdominal cramping. No fevers. One sexual partner. Information Provided By: Patient Age: 20 : 2 Term: 1 Pre-term: 0 Abortions: 0 Livin Care Care: Good Care Dating Final EDC: Aug 15, 2021 Final EDC by: LMP, 1st trimester (US) Past Medical History Past Obstetrical History : Past Obstetrical History: Multigravida Type of Delivery: Ceserean section Past Medical History Medical History OB hx: 07/2020 section 7lb 3 oz Medical hx: depression/anxiety bipolar PCOS Obstructive sleep apnea Surgical hx: section Family History Significant Family History: No pertinent family hx Social History Marital Status: Single Family situation: Spouse/partner home Psychosocial History: Anxiety, Depression * Smoker: current smoker Alcohol: Denies Allergies Coded Allergies: No Known Allergies (Unverified , 03/07/17) Medications Scheduled No.137/Iron/Folic Acd ( Vitamin Tablet) 1 Each Tablet, 1 TAB PO DAILY Physical Examination Physical Examination GENERAL: Alert and oriented times three. BREAST: . ABDOMEN: Gravid and non-tender to touch. HEART RATE: Regular rate and rhythm. LUNGS: Clear to auscultation (CTA). EXTREMITIES: No edema. No clonus. Deep tendon reflexes (DTRs) + . Other physical findings Sterile speculum exam: Blood tinged fluid pooling in vagina, Nitrazine positive, negative fern test. cervix visually closed heart tones positive by doppler, no contractions with tocodynamometer Vital Signs/I&O Vital Signs Date Time Temp Pulse Resp B/P (MAP) Pulse Ox O2 Delivery O2 Flow Rate FiO2 03/29/21 18:00 97.9 72 17 132/78 (96) 98 Room Air Laboratory Data 24H LABS Laboratory Tests 2 03/29/21 09:17: Chlamydia trachomatis DNA ([place]) POSITIVEH, Neisseria gonorrhoeae DNA ([place]) NEGATIVE, Trichomonas vaginalis (PCR) NOT DETECTED 03/29/21 09:45: Immature Granulocyte % (Auto) 0.4, Neutrophils (%) (Auto) 71.9H, Lymphocytes (%) (Auto) 18.2L, Monocytes (%) (Auto) 5.3, Eosinophils (%) (Auto) 3.8H, Basophils (%) (Auto) 0.4, Neutrophils # (Auto) 8.0, Lymphocytes # (Auto) 2.0, Monocytes # (Auto) 0.6, Eosinophils # (Auto) 0.4, Basophils # (Auto) 0.1, Nucleated Red Blood Cells % (auto) 0.0 CBC/BMP Laboratory Tests 03/29/21 09:45 Anatomy Ultrasound Placenta Location: Posterior Normal Anatomy: Yes Placenta Previa: No Tocometer Contractions: No Assessment/Plan Assessment Pt is a 20-year-old (G)2 para (P)1-0-0-1 at 20+1 weeks by LMP c/w 12 week utrasound presents with leakage of fluid per vagina. Leakage is suspicious for premature rupture of membranes Check cultures for Chlamydia and Gonorrhea Formal ultrasound for anatomy, amniotic fluid, placenta. observe for signs of labor Can repeat speculum exam later Pt had not done labs (including CT/GC) as previously ordered implications of PPROM discussed Plan Admit and orient. Research Study Assistant and consent. Diet: . Group B Streptococcus (GBS) [negative]. Labs and intravenous (IV) per unit protocol. Counseled on Pitocin and induction of labor (IOL). Lactated Ringers (LR): Bolus mL, then at mL/hr. Anticipate [normal spontaneous delivery ()]. C-S as appropriate. ROGELIO CHAMPAGNE MD Mar 29, 2021 20:46
--- NOTE | 2021-03-29 20:57 | IPNPDOC ---
Text Note Date of Service The patient was seen on 03/29/21. NOTE S: Pt feels anxious and wants to go home. Still has fluid discharge from vagina, not large amounts. O: AVSS Appears anxious Abd: NT, soft, gravid SSE: blood tinged pool in vagina, Nitrazine positive ext: NT Chlamydia Positive ultrasound: normal IGOR A/P 20 yo at 20 1/7 weeks with chlamydia cervicitis, possible PPROM Treat with Zithromax 1 gram po x1 now diagnosis discussed with patient. Pt to abstain from intercourse at this time. Her partner should get treated for Chlamydia profuse, liquid vaginal discharge could represent Chlamydia cervicitis, and not necessarily PPROM; diagnosis not certain at this time risks of PPROM, including loss of , chorioamnionitis discussed with patient Sending the patient home is reasonable because she is pre-viable (i.e. no latency antibiotics, steroids, magnesium sulfate at this early gestation) follow up in the office this week VSAmarilis, I+O VSAmarilis I+O Laboratory Tests 03/29/21 09:45 Vital Signs Date Time Temp Pulse Resp B/P (MAP) Pulse Ox O2 Delivery O2 Flow Rate FiO2 03/29/21 18:00 97.9 72 17 132/78 (96) 98 Room Air ROGELIO CHAMPAGNE MD Mar 29, 2021 20:57
[2021-03-29] MEDS ORDERED: busPIRone 5 MG TAB PO SCH (21:00)
[2021-03-29 22:00] VITALS: BP 128/74
[2021-03-29] MEDS ORDERED: BUSP5TA PO (23:18)
[2021-03-29] MEDS ORDERED: AMOX500C PO (23:18)
== END 2021-03-29 23:25 | disposition home or self-care (01) ==
LOC: M LDO 08:29 → M OBS 14:00 → M LDO 23:25
PROVIDERS: ATTEND Specialist
DX: O26.893 Other specified pregnancy related conditions, third trimester (principal); Z3A.20 20 weeks gestation of pregnancy; N89.8 Other specified noninflammatory disorders of vagina; O34.211 Maternal care for low transverse scar from previous cesarean delivery; O99.343 Other mental disorders complicating pregnancy, third trimester; F41.9 Anxiety disorder, unspecified; F32.9 Major depressive disorder, single episode, unspecified; O99.353 Diseases of the nervous system complicating pregnancy, third trimester; G47.33 Obstructive sleep apnea (adult) (pediatric); O98.313 Other infections with a predominantly sexual mode of transmission complicating pregnancy, third trimester; A74.9 Chlamydial infection, unspecified

== ENCOUNTER → 2021-04-03 | Outpatient (CLI) | payer OTHER ==
[~2021-04-03] MED LIST changes: +AMOX500C PO; +BUSP5TA PO; +NORE0.353 PO; +SERT25TA21; +XARE15TA PO; +XARE20TA PO
== END ==
LOC: M RAD 15:08
PROVIDERS: ATTEND Specialist
DX: O41.00X0 Oligohydramnios, unspecified trimester, not applicable or unspecified (principal); Z3A.20 20 weeks gestation of pregnancy

== ENCOUNTER → 2021-04-04 | Outpatient (CLI) | payer OTHER | LOC: M WHC 13:51 | PROVIDERS: ATTEND Specialist | DX: O41.00X0 Oligohydramnios, unspecified trimester, not applicable or unspecified (principal); Z3A.20 20 weeks gestation of pregnancy ==

== ENCOUNTER → 2021-04-07 | Outpatient (REF) | payer OTHER ==
[~2021-04-07] MED LIST changes: -NORE0.353 PO; -SERT25TA21; -XARE15TA PO; -XARE20TA PO
[2021-04-07 19:24] LABS: GC DNA AMPLIFICATION NEGATIVE (NEGATIVE)
== END ==
LOC: M SFHCWAGY 16:51
PROVIDERS: ATTEND Advanced Practice Midwife
DX: O41.00X0 Oligohydramnios, unspecified trimester, not applicable or unspecified (principal); Z3A.00 Weeks of gestation of pregnancy not specified

== ENCOUNTER 2021-04-18 11:26 | Outpatient (CLI) | payer OTHER ==
[~2021-04-18] VITALS: Ht 162.6 cm; Wt 94.5 kg
[2021-04-18 11:43] VITALS: BP 144/62
[2021-04-18] MEDS ORDERED: BETAMETHASONE SOLUSPAN 6MG/ML 5ML VIAL (J0702 PER 3MG) IM ONE (11:55)
--- NOTE | 2021-04-18 12:10 | IPNPDOC ---
Text Note Date of Service The patient was seen on 04/18/21. NOTE S: 20 yo at 23 0/7 weeks by LMP c/2 12 week ultrasound presents for 1st dose of Betamethasone. She has had PPROM since 03/29/2021. She has no pain. She gets small amounts of leakage. O: AVSS NAD Abd: NT, gravid FHT: + by ultrasound ext: NT bedside ultrasound: IGOR=2.5, vtx, FH+ A/P 20 yo at 23 0/7 weeks with prolonged PPROM BMZ#1 today return tomorrow for next dose Plan admission to [facility] on Wednesday04/21/21 for PPROM Arrangement made with Dr. Elias from Center VS,Amarilis, I+O VS, Amarilis, I+O Vital Signs Date Time Temp Pulse Resp B/P (MAP) Pulse Ox O2 Delivery O2 Flow Rate FiO2 04/18/21 11:43 97.9 72 144/62 (89) ROGELIO CHAMPAGNE MD Apr 18, 2021 12:10
[2021-04-19] MEDS ORDERED: BUSP5TA PO (13:19)
== END 2021-04-18 12:17 | disposition home or self-care (01) ==
LOC: M LDO 11:26
PROVIDERS: ATTEND Advanced Practice Midwife
DX: O42.912 Preterm premature rupture of membranes, unspecified as to length of time between rupture and onset of labor, second trimester (principal); Z3A.23 23 weeks gestation of pregnancy; Z79.899 Other long term (current) drug therapy
CPT/HCPCS: 59025; 76815; 96372; J0702

== ENCOUNTER 2021-04-19 11:48 | Outpatient (CLI) | payer OTHER ==
[~2021-04-19] VITALS: Ht 162.6 cm; Wt 94.0 kg
[2021-04-19] MEDS ORDERED: BETAMETHASONE SOLUSPAN 6MG/ML 5ML VIAL (J0702 PER 3MG) IM ONE (12:45)
[2021-04-19 13:16] VITALS: BP 121/74
[2021-04-19] MEDS ORDERED: BUSP5TA PO (13:19)
== END 2021-04-19 13:32 | disposition home or self-care (01) ==
LOC: M LDO 11:48
PROVIDERS: ATTEND Obstetrics & Gynecology
DX: O42.912 Preterm premature rupture of membranes, unspecified as to length of time between rupture and onset of labor, second trimester (principal); Z3A.23 23 weeks gestation of pregnancy; Z79.899 Other long term (current) drug therapy
CPT/HCPCS: 59025; 96372; J0702

== ENCOUNTER 2021-08-17 14:11 | Emergency (ER) | payer OTHER ==
[~2021-08-17] VITALS: Ht 162.6 cm; Wt 102.5 kg
--- OUTSIDE RECORDS SUMMARY | 2021-08-17 14:17 | CCD ---
Author Author [facility] Organization [facility] Address Unknown Phone Unavailable Care Team Providers Care Lead Quality Technician Name Role Phone Alfonzo Hernandez Unavailable PROBLEMS ALLERGIES No Known Allergies ENCOUNTERS from 2000 to 2021-08-13 IMMUNIZATIONS No Information SOCIAL HISTORY REASON FOR REFERRAL No Information VITAL SIGNS MEDICATIONS PROCEDURES No Information RESULTS No Results REASON FOR VISIT MEDICAL (GENERAL) HISTORY Goals Section Health Concerns MEDICAL EQUIPMENT No Information MENTAL STATUS FUNCTIONAL STATUS ASSESSMENTS PLAN OF TREATMENT Insurance Providers
--- OUTSIDE RECORDS SUMMARY | 2021-08-17 14:18 | CCD ---
Author Author [facility] Organization [facility] Address Unknown Phone Unavailable Care Team Providers Care Auto Appraiser Name Role Phone Hero Elias Unavailable Unavailable Hero Elias Unavailable Unavailable Hero Elias Unavailable Unavailable Hero Elias Unavailable Unavailable Hero Elias Unavailable Unavailable Babita BLACKMAN MD Unavailable Unavailable Babita BLACKMAN MD Unavailable Unavailable Babita BLACKMAN MD Unavailable Unavailable Babita BLACKMAN MD Unavailable Unavailable Babita BLACKMAN MD Unavailable Unavailable Babita BLACKMAN MD Unavailable Unavailable Babita BLACKMAN MD Unavailable Unavailable Babita BLACKMAN MD Unavailable Unavailable Babita BLACKMAN MD Unavailable Unavailable Babita BLACKMAN MD Unavailable Unavailable Babita BLACKMAN MD Unavailable Unavailable Babita BLACKMAN MD Unavailable Unavailable Babita BLACKMAN MD Unavailable Unavailable Babita BLACKMAN MD Unavailable Unavailable Babita BLACKMAN MD Unavailable Unavailable Babita BLACKMAN MD Unavailable Unavailable Babita BLACKMAN MD Unavailable Unavailable Babita BLACKMAN MD Unavailable Unavailable Babita BLACKMAN MD Unavailable Unavailable Babita BLACKMAN MD Unavailable Unavailable Babita BLACKMAN MD Unavailable Unavailable Babita BLACKMAN MD Unavailable Unavailable Babita BLACKMAN MD Unavailable Unavailable Babita BLACKMAN MD Unavailable Unavailable Babita BLACKMAN MD Unavailable Unavailable Babita BLACKMAN MD Unavailable Unavailable Babita BLACKMAN MD Unavailable Unavailable Babita BLACKMAN MD Unavailable Unavailable Babita BLACKMAN MD Unavailable Unavailable Babita BLACKMAN MD Unavailable Unavailable Babita BLACKMAN MD Unavailable Unavailable Babita BLACKMAN MD Unavailable Unavailable Babita BLACKMAN MD Unavailable Unavailable Babita BLACKMAN MD Unavailable Unavailable Babita BLACKMAN MD Unavailable Unavailable Babita BLACKMAN MD Unavailable Unavailable Babita BLACKMAN MD Unavailable Unavailable Babita BLACKMAN MD Unavailable Unavailable Babita BLACKMAN MD Unavailable Unavailable Babita BLACKMAN MD Unavailable Unavailable Babita BLACKMAN MD Unavailable Unavailable Babita BLACKMAN MD Unavailable Unavailable Babita BLACKMAN MD Unavailable Unavailable Babita BLACKMAN MD Unavailable Unavailable Babita BLACKMAN MD Unavailable Unavailable Babita BLACKMAN MD Unavailable Unavailable Babita BLACKMAN MD Unavailable Unavailable Babita BLACKMAN MD Unavailable Unavailable Babita BLACKMAN MD Unavailable Unavailable Babita BLACKMAN MD Unavailable Unavailable Babita BLACKMAN MD Unavailable Unavailable Babtia BLACKMAN MD Unavailable Unavailable Babita BLACKMAN MD Unavailable Unavailable Babita BLACKMAN MD Unavailable Unavailable Babita BLACKMAN MD Unavailable Unavailable Babita BLACKMAN MD Unavailable Unavailable Babita BLACKMAN MD Unavailable Unavailable Babita BLACKMAN MD Unavailable Unavailable Babita BLACKMAN MD Unavailable Unavailable Jesenia RANDLE MD Unavailable Unavailable Jesenia RANDLE MD Unavailable Unavailable Jesenia RANDLE MD Unavailable Unavailable Jesenia RANDLE MD Unavailable Unavailable Jesenia RANDLE MD Unavailable Unavailable Jesenia RANDLE MD Unavailable Unavailable Jesenia RANDLE MD Unavailable Unavailable Jesenia RANDLE MD Unavailable Unavailable Geers, L Carisa CNM Unavailable Unavailable Geers, L Carisa CNM Unavailable Unavailable Geers, L Carisa CNM Unavailable Unavailable Geers, L Carisa CNM Unavailable Unavailable Geers, L Carisa CNM Unavailable Unavailable Geers, L Carisa CNM Unavailable Unavailable Geers, L Carisa CNM Unavailable Unavailable Geers, L Carisa CNM Unavailable Unavailable Geers, L Carisa CNM Unavailable Unavailable Geers, L Carisa CNM Unavailable Unavailable Geers, L Carisa CNM Unavailable Unavailable Geers, L Carisa CNM Unavailable Unavailable Geers, L Carisa CNM Unavailable Unavailable Geers, L Carisa CNM Unavailable Unavailable Geers, L Carisa CNM Unavailable Unavailable Geers, L Carisa CNM Unavailable Unavailable Geers, L Carisa CNM Unavailable Unavailable Geers, L Carisa CNM Unavailable Unavailable Geers, L Carisa CNM Unavailable Unavailable Geers, L Carisa CNM Unavailable Unavailable Geers, L Carisa CNM Unavailable Unavailable Re-disclosure Warning The records that you are about to access may contain information from federally-assisted alcohol or drug abuse programs. If such information is present, then the following federally mandated warning applies: This information has been disclosed to you from records protected by federal confidentiality rules (42 CFR part 2). The federal rules prohibit you from making any further disclosure of this information unless further disclosure is expressly permitted by the written consent of the person to whom it pertains or as otherwise permitted by 42 CFR part 2. A general authorization for the release of medical or other information is NOT sufficient for this purpose. The Federal rules restrict any use of the information to criminally investigate or prosecute any alcohol or drug abuse patient.The records that you are about to access may contain highly sensitive health information, the redisclosure of which is protected by Article 27-F of the [facility] Public Health law. If you continue you may have access to information: Regarding HIV / AIDS; Provided by facilities licensed or operated by the [facility] Office of Mental Health; or Provided by the [facility] Office for People With Developmental Disabilities. If such information is present, then the following [facility] mandated warning applies: This information has been disclosed to you from confidential records which are protected by state law. State law prohibits you from making any further disclosure of this information without the specific written consent of the person to whom it pertains, or as otherwise permitted by law. Any unauthorized further disclosure in violation of state law may result in a fine or detention sentence or both. A general authorization for the release of medical or other information is NOT sufficient authorization for further disc losure. Allergies and Adverse Reactions Type Description Substance Reaction Status Data Source(s ) Propensity to adverse reactions NO KNOWN ALLERGIES NO KNOWN ALLERGIES [facility] Family History Family Member Name Family Member Gender Family Member Status Date o f Status Description Data Source(s) Unknown Unknown Problem MEDENT ([facility]) Unknown Unknown Problem MEDENT ([facility]) Unknown Unknown Problem MEDENT ([facility]) Unknown Unknown Problem MEDENT ([facility]) Encounters Encounter Providers Location Date Indications Data Source(s ) ( ESTOB) enter Est OB [address] [place] [address] 08/05/2021 12:00:00 AM EST eCW1 ([facility]) Outpatient Attender: Carisa Anthony CNM 06/27/2021 12:00:0 0 AM EDT [facility] Outpatient Attender: Clau EliasReferrer: Clau Elias 05/07/2021 12:00:00 AM EDT - 05/07/2021 11:59:00 PM EDT Maternal care for other known or suspect ed poor growth, first trimester, not applicable or unspecified [facility] Maternal care for other known or suspect ed poor growth, first trimester, not applicable or unspecified Unknown [address] [facility] [address] 04/22/2021 12:00:00 AM EDT eCW1 ([facility]) Inpatient Attender: CLAU BLACKMAN MD 04/21/2021 03:10: 00 PM EDT [facility] Inpatient Attender: FRANCHESCA RANDLE MD 04/21/2021 02:55:05 PM EDT [facility] Inpatient Attender: CLAU BLACKMAN MDAdmitter: CLAU GUPTA MD 04/21/2021 11:59:00 AM EDT - 06/22/2021 11:22:00 AM EDT PREMATURE RUPTURE OF MEMBRANES [facility] PREMATURE RUPTURE OF MEMBRANES Patient discharged. ([facility]) [facility] [address] [place] [address] 04/17/2021 12:00:00 AM EDT eCW1 ([facility]) (WC COB) [facility] [address] [place] [address] 04/11/2021 12:00:00 AM EDT eCW1 ([facility]) ( ESTOB) enter Est OB [address] [place] [address] 04/07/2021 12:00:00 AM EDT eCW1 ([facility]) ( ESTOB) enter Est OB [address] [place] [address] 04/03/2021 12:00:00 AM EDT eCW1 ([facility]) Unknown [address] [facility] [address] 04/01/2021 12:00:00 AM EDT eCW1 ([facility]) (WC ESTOB) WCenter Est OB [address] [place] [address] 03/05/2021 12:00:00 AM EDT eCW1 ([facility]) Outpatient [address] [facility] [address] 02/28/2021 12:00:00 AM EDT eCW1 ([facility]) Unknown [address] [facility] [address] 02/28/2021 12:00:00 AM EDT eCW1 ([facility]) (WC ESTOB) WCenter Est OB [address] [place] [address] 02/04/2021 12:00:00 AM EDT eCW1 ([facility]) Office Visit, Est Pt., Level 3 FC [address] [place] [address] 11/21/2020 12:00:00 AM EST [facility]CW1 [facility]) (WC ESTOB) WCenter Est OB [address] [place] [address] 10/02/2020 12:00:00 AM EST eCW1 ([facility]) (WC ESTOB) [facility] Est OB [address] [place] [address] 08/14/2020 12:00:00 AM EST eCW1 ([facility]) (WC ESTOB) WCenter Est OB [address] [place] [address] 08/07/2020 12:00:00 AM EST eCW1 ([facility]) (WC ESTOB) W[facility] Est OB [address] [place] [address] 07/30/2020 12:00:00 AM EST eCW1 ([facility]) (WC ESTOB) WCenter Est OB [address] [place] [address] 07/23/2020 12:00:00 AM EDT eCW1 ([facility]) ( ESTOB) WCenter Est OB [address] [place] [address] 07/17/2020 12:00:00 AM EDT eCW1 ([facility]) ( ESTOB) WCenter Est OB [address] [place] [address] 07/09/2020 12:00:00 AM EDT eCW1 ([facility]) Unknown [address] [facility] [address] 07/24/2019 12:00:00 AM EDT eCW1 ([facility]) Medications Medication Brand Name Start Date Product Form Dose Route Admi nistrative Instructions Pharmacy Instructions Status Indications Reaction Description Data Source(s) Sertraline 25 MG Oral Tablet [Zoloft] Zoloft 25 MG Zoloft 25 MG 08/05/2021 12:00:00 AM EST 1.0 {tablet} active eCW1 ([facility]) 25 mg 08/05/2021 12:00:00 AM EST tablet 30 TAKE ONE TABLET BY MOUTH EVERY DAY TAKE ONE TABLET BY MOUTH EVERY DAY SOLD: 08/07/2021 [facility] 0.35 mg 08/05/2021 12:00:00 AM EST tablet 84 TAKE ONE TABLET BY MOUTH EVERY DAY TAKE ONE TABLET BY MOUTH EVERY DAY SOLD: 08/07/2021 [facility] Minoo 0.35 MG Minoo 0.35 MG 08/05/2021 12:00:00 AM EST 1.0 { tablet} active eCW1 ([facility]) 50 mg 06/27/2021 12:00:00 AM EDT tablet 30 TAKE ONE TABLET BY MOUTH EVERY DAY TAKE ONE TABLET BY MOUTH EVERY DAY SOLD: 06/27/2021 [facility] Sertraline 50 MG Oral Tablet [Zoloft] Zoloft 50 MG Zoloft 50 MG 06/27/2021 12:00:00 AM EDT 1.0 {tablet} active eCW1 ([facility]) 50 mg 06/27/2021 12:00:00 AM EDT tablet 30 TAKE ONE TABLET BY MOUTH EVERY DAY TAKE ONE TABLET BY MOUTH EVERY DAY SOLD: 07/31/2021 [facility] 5 mg 06/22/2021 12:00:00 AM EDT tablet 20 TAKE ONE TABLET BY MOUTH EVERY 4 HOURS NEEDED FOR MODERATE PAIN (4-7) MAXIMUM DAILY DOSE = 5 TAKE ONE TABLET BY MOUTH EVERY 4 HOURS NEEDED FOR MODERATE PAIN (4-7) MAXIMUM DAILY DOSE = 5 SOLD: 06/22/2021 [facility] 325 mg 06/22/2021 12:00:00 AM EDT tablet 20 3 TABLET BY MOUTH EVERY 6 HOURS NEEDED FOR PAIN. GIVE AT REGULAR SCHEDULED TIME 3 TABLET BY MOUTH EVERY 6 HOURS NEEDED FOR PAIN. GIVE AT REGULAR SCHEDULED TIME SOLD: 06/22/2021 [facility] 600 mg 06/22/2021 12:00:00 AM EDT tablet 20 TAKE 1 TABLET BY MOUTH EVERY 6 HOURS. DO NOT START UNTIL 6 HOURS POST KETOROLAC TAKE 1 TABLET BY MOUTH EVERY 6 HOURS. DO NOT START UNTIL 6 HOURS POST KETOROLAC SOLD: 06/22/2021 [facility] 500 mg 03/30/2021 12:00:00 AM EDT capsule 21 TAKE ONE CAPSULE BY MOUTH THREE TIMES A DAY TAKE ONE CAPSULE BY MOUTH THREE TIMES A DAY SOLD: 03/30/2021 [facility] buspirone hydrochloride 5 MG Oral Tablet BUSPIRONE HCL 03/30/2021 12:00:00 AM EDT tablet 60 TAKE ONE TABLET BY MOUTH TWI CE A DAY TAKE ONE TABLET BY MOUTH TWICE A DAY SOLD: 03/30/2021 [facility] 150-35 mcg/24 hr 11/22/2020 12:00:00 AM EST patch weekly 9 APPLY 1 PATCH WEEKLY FOR 3 WEEKS THEN 1 WEEK OFF APPLY 1 PATCH WEEKLY FOR 3 WEEKS THEN 1 WEEK OFF SOLD: 11/28/2020 [facility] 168 HR Ethinyl Estradiol 0.50765 MG/HR / norelgestromin 0.69776 MG/HR Transdermal Patch [Xulane] Xulane 150-35 MCG/24HR Xulane 150-35 MCG/24HR 11/21/2020 12:00:00 AM EST suspended Xulane 150-35 MCG/24HR eCW1 ([facility]) 168 HR Ethinyl Estradiol 0.53774 MG/HR / norelgestromin 0.82304 MG/HR Transdermal Patch [Xulane] Xulane 150-35 MCG/24HR Xulane 150-35 MCG/24HR 11/21/2020 12:00:00 AM EST suspended Xulane 150-35 MCG/24HR eCW1 ([facility]) 168 HR Ethinyl Estradiol 0.43690 MG/HR / norelgestromin 0.89953 MG/HR Transdermal Patch [Xulane] Xulane 150-35 MCG/24HR Xulane 150-35 MCG/24HR 11/21/2020 12:00:00 AM EST suspended Xulane 150-35 MCG/24HR eCW1 ([facility]) 168 HR Ethinyl Estradiol 0.92054 MG/HR / norelgestromin 0.53764 MG/HR Transdermal Patch [Xulane] Xulane 150-35 MCG/24HR Xulane 150-35 MCG/24HR 11/21/2020 12:00:00 AM EST suspended Xulane 150-35 MCG/24HR eCW1 ([facility]) 168 HR Ethinyl Estradiol 0.03231 MG/HR / norelgestromin 0.07850 MG/HR Transdermal Patch [Xulane] Xulane 150-35 MCG/24HR Xulane 150-35 MCG/24HR 11/21/2020 12:00:00 AM EST active Xulane 150-35 MCG/24HR eCW1 ([facility]) 168 HR Ethinyl Estradiol 0.32567 MG/HR / norelgestromin 0.85050 MG/HR Transdermal Patch [Xulane] Xulane 150-35 MCG/24HR Xulane 150-35 MCG/24HR 11/21/2020 12:00:00 AM EST suspended Xulane 150-35 MCG/24HR eCW1 ([facility]) 168 HR Ethinyl Estradiol 0.25167 MG/HR / norelgestromin 0.73689 MG/HR Transdermal Patch [Xulane] Xulane 150-35 MCG/24HR Xulane 150-35 MCG/24HR 11/21/2020 12:00:00 AM EST suspended Xulane 150-35 MCG/24HR eCW1 ([facility]) 168 HR Ethinyl Estradiol 0.71867 MG/HR / norelgestromin 0.69862 MG/HR Transdermal Patch [Xulane] Xulane 150-35 MCG/24HR Xulane 150-35 MCG/24HR 11/21/2020 12:00:00 AM EST suspended Xulane 150-35 MCG/24HR eCW1 ([facility]) 168 HR Ethinyl Estradiol 0.99259 MG/HR / norelgestromin 0.98851 MG/HR Transdermal Patch [Xulane] Xulane 150-35 MCG/24HR Xulane 150-35 MCG/24HR 11/21/2020 12:00:00 AM EST suspended Xulane 150-35 MCG/24HR eCW1 ([facility]) 168 HR Ethinyl Estradiol 0.37121 MG/HR / norelgestromin 0.22675 MG/HR Transdermal Patch [Xulane] Xulane 150-35 MCG/24HR Xulane 150-35 MCG/24HR 11/21/2020 12:00:00 AM EST suspended Xulane 150-35 MCG/24HR eCW1 ([facility]) 168 HR Ethinyl Estradiol 0.62538 MG/HR / norelgestromin 0.09160 MG/HR Transdermal Patch [Xulane] Xulane 150-35 MCG/24HR Xulane 150-35 MCG/24HR 11/21/2020 12:00:00 AM EST suspended Xulane 150-35 MCG/24HR eCW1 ([facility]) Escitalopram 10 MG Oral Tablet ESCITALOPRAM OXALATE 10/04/2020 1 2:00:00 AM EST tablet 30 TAKE ONE TABLET BY MOUTH DAILY TAKE ONE T ABLET BY MOUTH DAILY SOLD: 10/09/2020 [facility] Escitalopram 10 MG Oral Tablet [Lexapro] Lexapro 10 MG Lexap ro 10 MG 10/02/2020 12:00:00 AM EST 1.0 {tablet} suspended Lexapro 10 MG eCW1 ([facility]) Escitalopram 10 MG Oral Tablet [Lexapro] Lexapro 10 MG Lexap ro 10 MG 10/02/2020 12:00:00 AM EST 1.0 {tablet} suspended Lexapro 10 MG eCW1 ([facility]) Escitalopram 10 MG Oral Tablet [Lexapro] Lexapro 10 MG Lexap ro 10 MG 10/02/2020 12:00:00 AM EST 1.0 {tablet} suspended Lexapro 10 MG eCW1 ([facility]) Escitalopram 10 MG Oral Tablet [Lexapro] Lexapro 10 MG Lexap ro 10 MG 10/02/2020 12:00:00 AM EST 1.0 {tablet} suspended Lexapro 10 MG eCW1 ([facility]) Acetaminophen 325 MG / Oxycodone Hydroch loride 5 MG Oral Tablet [Percocet] Percocet 5-325 MG Percocet 5-325 MG 10/02/2020 12:00:00 AM EST 1 .0 {tablet_as_needed} suspended Percocet 5- 325 MG eCW1 ([facility]) Acetaminophen 325 MG / Oxycodone Hydroch loride 5 MG Oral Tablet [Percocet] Percocet 5-325 MG Percocet 5-325 MG 10/02/2020 12:00:00 AM EST 1 .0 {tablet_as_needed} active Percocet 5-32 5 MG eCW1 ([facility]) 5-325 mg 10/02/2020 12:00:00 AM EST tablet 28 TAKE ONE TABLET BY MOUTH EVERY 6 HOURS NEEDED MAX=4TABS/DAY TAKE ONE TABLET BY MOUTH EVERY 6 HOURS A S NEEDED MAX=4TABS/DAY SOLD: 10/09/2020 [facility] Acetaminophen 325 MG / Oxycodone Hydroch loride 5 MG Oral Tablet [Percocet] Percocet 5-325 MG Percocet 5-325 MG 10/02/2020 12:00:00 AM EST 1 .0 {tablet_as_needed} suspended Percocet 5- 325 MG eCW1 ([facility]) Acetaminophen 325 MG / Oxycodone Hydroch loride 5 MG Oral Tablet [Percocet] Percocet 5-325 MG Percocet 5-325 MG 10/02/2020 12:00:00 AM EST 1 .0 {tablet_as_needed} suspended Percocet 5- 325 MG eCW1 ([facility]) Acetaminophen 325 MG / Oxycodone Hydroch loride 5 MG Oral Tablet [Percocet] Percocet 5-325 MG Percocet 5-325 MG 10/02/2020 12:00:00 AM EST 1 .0 {tablet_as_needed} suspended Percocet 5- 325 MG eCW1 ([facility]) Escitalopram 10 MG Oral Tablet [Lexapro] Lexapro 10 MG Lexap ro 10 MG 10/02/2020 12:00:00 AM EST 1.0 {tablet} suspended Lexapro 10 MG eCW1 ([facility]) Acetaminophen 325 MG / Oxycodone Hydroch loride 5 MG Oral Tablet [Percocet] Percocet 5-325 MG Percocet 5-325 MG 10/02/2020 12:00:00 AM EST 1 .0 {tablet_as_needed} suspended Percocet 5- 325 MG eCW1 ([facility]) Escitalopram 10 MG Oral Tablet [Lexapro] Lexapro 10 MG Lexap ro 10 MG 10/02/2020 12:00:00 AM EST 1.0 {tablet} active Le xapro 10 MG eCW1 ([facility]) Acetaminophen 325 MG / Oxycodone Hydroch loride 5 MG Oral Tablet [Percocet] Percocet 5-325 MG Percocet 5-325 MG 10/02/2020 12:00:00 AM EST 1 .0 {tablet_as_needed} suspended Percocet 5- 325 MG eCW1 ([facility]) Acetaminophen 325 MG / Oxycodone Hydroch loride 5 MG Oral Tablet [Percocet] Percocet 5-325 MG Percocet 5-325 MG 10/02/2020 12:00:00 AM EST 1 .0 {tablet_as_needed} active Percocet 5-32 5 MG eCW1 ([facility]) Escitalopram 10 MG Oral Tablet [Lexapro] Lexapro 10 MG Lexap ro 10 MG 10/02/2020 12:00:00 AM EST 1.0 {tablet} suspended Lexapro 10 MG eCW1 ([facility]) Acetaminophen 325 MG / Oxycodone Hydroch loride 5 MG Oral Tablet [Percocet] Percocet 5-325 MG Percocet 5-325 MG 10/02/2020 12:00:00 AM EST 1 .0 {tablet_as_needed} suspended Percocet 5- 325 MG eCW1 ([facility]) Acetaminophen 325 MG / Oxycodone Hydroch loride 5 MG Oral Tablet [Percocet] Percocet 5-325 MG Percocet 5-325 MG 10/02/2020 12:00:00 AM EST 1 .0 {tablet_as_needed} suspended Percocet 5- 325 MG eCW1 ([facility]) Acetaminophen 325 MG / Oxycodone Hydroch loride 5 MG Oral Tablet [Percocet] Percocet 5-325 MG Percocet 5-325 MG 10/02/2020 12:00:00 AM EST 1 .0 {tablet_as_needed} active Percocet 5-32 5 MG eCW1 ([facility]) Escitalopram 10 MG Oral Tablet [Lexapro] Lexapro 10 MG Lexap ro 10 MG 10/02/2020 12:00:00 AM EST 1.0 {tablet} suspended Lexapro 10 MG eCW1 ([facility]) Escitalopram 10 MG Oral Tablet [Lexapro] Lexapro 10 MG Lexap ro 10 MG 10/02/2020 12:00:00 AM EST 1.0 {tablet} active Le xapro 10 MG eCW1 ([facility]) Escitalopram 10 MG Oral Tablet [Lexapro] Lexapro 10 MG Lexap ro 10 MG 10/02/2020 12:00:00 AM EST 1.0 {tablet} active Le xapro 10 MG eCW1 ([facility]) Acetaminophen 325 MG / Oxycodone Hydroch loride 5 MG Oral Tablet [Percocet] Percocet 5-325 MG Percocet 5-325 MG 10/02/2020 12:00:00 AM EST 1 .0 {tablet_as_needed} suspended Percocet 5- 325 MG eCW1 ([facility]) Escitalopram 10 MG Oral Tablet [Lexapro] Lexapro 10 MG Lexap ro 10 MG 10/02/2020 12:00:00 AM EST 1.0 {tablet} suspended Lexapro 10 MG eCW1 ([facility]) Acetaminophen 325 MG / Oxycodone Hydroch loride 5 MG Oral Tablet [Percocet] Percocet 5-325 MG Percocet 5-325 MG 10/02/2020 12:00:00 AM EST 1 .0 {tablet_as_needed} suspended Percocet 5- 325 MG eCW1 ([facility]) Escitalopram 10 MG Oral Tablet [Lexapro] Lexapro 10 MG Lexap ro 10 MG 10/02/2020 12:00:00 AM EST 1.0 {tablet} suspended Lexapro 10 MG eCW1 ([facility]) Escitalopram 10 MG Oral Tablet [Lexapro] Lexapro 10 MG Lexap ro 10 MG 10/02/2020 12:00:00 AM EST 1.0 {tablet} suspended Lexapro 10 MG eCW1 ([facility]) 800 mg 08/18/2020 12:00:00 AM EST tablet 30 TAKE ONE TABLET BY MOUTH EVERY 8 HOURS TAKE ONE TABLET BY MOUTH EVERY 8 HOURS SOLD: 08/19/2020 [facility] Insurance Providers Payer name Policy type / Coverage type Policy ID Covered constitution party ID Covered constitution party's relationship to [place] Policy [place] Plan Information MEDICAID [id number] SP [id number] [facility] Medicaid [id number] Self [id number] [place]) Commercial [id number] Self [id number] [place]) Commercial [id number] Self [id number] [facility] COMMUNITY PLAN [facility] [id number] [facility] COMMUNITY PLAN [facility] [id number] [facility] Community Plan Commercial [id number] Self [id number] [facility] [id number] S [id number] [facility] [id number] Self [id number] [facility] I [id number] Self [id number] [facility] [id number] S [id number] [facility] ([facility]) [id number] Self [id number] [facility] [id number] S [id number] [facility] [id number] S [id number] [facility] (O) [id number] Self [id number] [facility] ([facility]) [id number] Self [id number] [facility] MEDICAID [id number] S [id number] [facility] ([facility]) [id number] Self [id number] [facility] ([facility]) [id number] Self [id number] [facility] [id number] S [id number] [facility] [id number] S [id number] [facility] Community Plan Commercial [id number] Self [facility]) O [id number] C [id number] [facility] COMMUNITY PLAN [facility] [id number] SP [id number] O BLUE [id number] SP [id number] MEDICAID GME [id number] S [id number] [facility] HEA [id number] S [id number] HEA [id number] [facility] COMMUNITY PLAN [facility] [id number] SP [id number] [facility]) O [id number] S [id number] [facility] [id number] S [id number] [facility] MEDICAID [id number] S [id number] ANSI-Medicaid [id number] ANSI-Medicaid [id number] [facility] Community Plan Commercial [id number] Self [id number] Problems, Conditions, and Diagnoses Code Display Name Description Problem Type Effective Dates Data Source(s) O36.5910 Maternal care for other know n or suspected poor growth, first trimester, not applicable or unspecified Maternal care for other known or suspected poor growth, first trimester, not applicable or unspecified Diagnosis 05/07/2021 05:38:00 PM EDT [facility] Z34.80 care Supervision of other normal P roblem 02/04/2021 12:00:00 AM EDT eCW1 ([facility]) F41.9 Anxiety Anxiety Problem 07/30/2020 12:00:00 AM ES T eCW1 ([facility]) E66.9 Obesity Obesity Problem 07/23/2020 12:00:00 AM ED T eCW1 ([facility]) O99.213 Obesity complicating , third tr imester Obesity complicating in third trimester Problem 07/17/2020 12:00:00 AM EDT eCW1 ([facility]) O99.213 Maternal obesity complicatin g , childbirth and the puerperium, antepartum Obesity affecting in third trimester Problem 07/09/2020 12:00:00 AM EDT eCW1 ([facility]) Z68.41 Body mass index 40+ - morbidly obese BMI 40.0-44.9, ad ult Problem 07/09/2020 12:00:00 AM EDT eCW1 ([facility]) Surgeries/Procedures Procedure Description Date Indications Data Source(s) MISC. KIT TESTING <td>MISC. KIT TESTING</td><t d>Routine</td><td>05/07/2021 5:51 PM EDT</td><td></td><td> </td> 05/07/2021 05:51:00 PM EDT [facility] Results ID Date Data Source [id number] 06/20/2021 09:32:22 AM EDT [facility] Name Value Range Interpretation Code Description Data Gabby rce(s) Supporting Document(s) WBC 15.3 10*3/uL (4.1-11.0) H [facility] RBC 3.32 10*6/uL (4.00-5.40) L [facility] HGB 10.4 g/dL (12.0-16.0) L [facility] HCT 31.0 % (36.0-47.0) L [facility] MCV 93.6 fL (80.0-95.0) [facility] MCH 31.3 pg (27.0-32.0) [facility] MCHC 33.4 g/dL (32.0-36.0) [facility] RDW 14.1 % (10.5-14.5) [facility] PLT 215 10*3/uL (150-450) [facility] MPV 8.0 fL (7.1-10.7) [facility] ID Date Data Source [id number] 06/19/2021 04:19:02 PM EDT [facility] Name Value Range Interpretation Code Description Data Gabby rce(s) Supporting Document(s) WBC 11.8 10*3/uL (4.1-11.0) H [facility] RBC 3.52 10*6/uL (4.00-5.40) L [facility] HGB 11.0 g/dL (12.0-16.0) L [facility] HCT 33.2 % (36.0-47.0) L [facility] MCV 94.3 fL (80.0-95.0) [facility] MCH 31.3 pg (27.0-32.0) [facility] MCHC 33.2 g/dL (32.0-36.0) [facility] RDW 13.9 % (10.5-14.5) [facility] PLT 207 10*3/uL (150-450) [facility] MPV 7.9 fL (7.1-10.7) [facility] NEUT % 85.2 % (35.0-75.0) H [facility] LYMPH % 9.3 % (16.0-52.0) L [facility] MONO % 4.9 % (0.0-8.0) [facility] EOS % 0.4 % (0.0-5.0) [facility] BASO % 0.2 % (0.0-4.0) [facility] NEUT # 10.0 10*3/uL (1.8-7.7) H [facility] LYMPH # 1.1 10*3/uL (1.2-4.8) L [facility] MONO # 0.6 10*3/uL (0.0-0.8) [facility] Eosinophils [#/volume] in Blood by Automated count 0.0 10*3/uL (0.0-0 .5) [facility] BASO # 0.0 10*3/uL (0.0-0.2) [facility] ID Date Data Source [id number] 06/20/2021 03:54:37 PM EDT [facility] [place] [id number]# SURGICAL PATHOLOGY REPORTPatient Name:STEFFI FORTUNEOB:2000Received:06/19/2021ccession #:[id number](s) Received: A: PlacentaClinical Diagnosis and History: Gestational age 31.6 weeks, premature rupture of membranes on03/29/2021 at 00:00, severe intrauterine growth restriction <1%. DIAGNOSIS:PLACENTA - IMMATURE 287 GM PLACENTA WITH INTERVILLOUS THROMBI; THREE VESSEL UMBILICAL CORD. GROSS DESCRIPTION: Placenta, received in formalin labeled with the patient's name. *Weight 287 gm (10th-25th percentile). Measurement 12.7 x 10.8 x 3.3 cm (received in two pieces). Umbilical cord: Insertion Eccentric. Measurement 37.1 cm in length and averaging 1.0 cm indiameter. Number of vessels 3. Appearance Hypocoiled with right to left twist. Membranes: Insertion 75% marginal, 25% circummarginate. Site of rupture 1.4 cm from margin. Appearance Dumont-pink, smooth and translucent. Comments: The surface is weaver-blue, smooth and glistening with somesubchorionic fibrin deposition measuring up to 3.2 cm in greatestdimension. The maternal surface has an area of disruption measuringapproximately 7.5 cm in greatest dimension. The remaining maternalsurface is intact and lobulated, and is mottled in color from dumont-white topurple-dumont. The cut surface of the placenta is dark red and spongy. Adherent to the placenta is a 7.0 x 3.8 x 1.9 cm aggregate of blood clot. Sections are submitted for microscopic examination and are designated asfollows: A1 - membrane roll and two cord sections; A2-A4 - full thicknesssections of placental parenchyma per cassette. (4 blocks) *Note: Weight given is after formalin fixation. Post fixation weightsare higher than the true wet tissue weight. jmdqpa, rff/[facility] campusReported: 06/20/2021 15:53Electronically Signed Out By Fausto Butler MD [facility] [address] [address]Jcesqrzjj component performed at [facility], Histopathology, [address] [place] [address], [phone].Reported at [facility], [address] [place] [address], [phone].This report may include immunohistochemical or in-situ hybridizationresults. Testing was developed and the performance characteristicsdetermined by [facility], as required byCLIA '88. The FDA has determined that approval for specific use is notnecessary for clinical use. The quality of Hematoxylin and Eosin stainsand as applicable, for all immunohistochemical and/or special stains,including positive and negative controls, were reviewed and consideredappropriate.ICD codes: O43.740RKT3 codes: A: 49078T Name Value Range Interpretation Code Description Data Gabby rce(s) Supporting Document(s) ID Date Data Source [id number] 06/20/2021 09:30:40 AM EDT [facility] SPEC EXP DATE 1PATI ENT ABO/Rh A POSITIVEANTIBODY SCREEN NEGATIVETESTING SITE PERFORMED AT [address] [place] [address] BANK COMMENT BLOOD TYPE CONFIRMED. Name Value Range Interpretation Code Description Data [facility] rce(s) Supporting Document(s) ID Date Data Source [id number] 06/18/2021 04:18:00 PM EDT [facility] DATE OF EXAM: 06/18/2021XAM:US Um bilical Artery Doppler, US Uterus Ltd CLINICAL INDICATION: IUGR TECHNIQUE: Real-time sonographic imaging was obtained of the pelvis. COMPARISON: ultrasound dated 06/16/2021. FINDINGS: Single live intrauterine gestation in variable/breech position. heart rate measures 130 bpm.No measurable amniotic fluid is identified.Umbilical artery Doppler ratio measures 2.1 which is within normal limits. IMPRESSION: 1. Single live intrauterine gestation with anhydramnios and normal umbilical artery Doppler ratio. X2End of diagnostic report for accession: [id number] Interpreted: Feliciano Castellanos MDTranscribed: 06/18/2021 04:17 PMSigned: 06/18/2021 04:18 PM Feliciano Castellanos MD [facility] [address] # [id number] BILL # [id number] Name Value Range Interpretation Code Description Data Gabby rce(s) Supporting Document(s) ID Date Data Source [id number] 06/18/2021 04:18:00 PM EDT [facility] DATE OF EXAM: 06/18/2021XAM:US Um bilical Artery Doppler, US Uterus Ltd CLINICAL INDICATION: IUGR TECHNIQUE: Real-time sonographic imaging was obtained of the pelvis. COMPARISON: ultrasound dated 06/16/2021. FINDINGS: Single live intrauterine gestation in variable/breech position. heart rate measures 130 bpm.No measurable amniotic fluid is identified.Umbilical artery Doppler ratio measures 2.1 which is within normal limits. IMPRESSION: 1. Single live intrauterine gestation with anhydramnios and normal umbilical artery Doppler ratio. X2End of diagnostic report for accession: [id number] Interpreted: Feliciano Castellanos MDTranscribed: 06/18/2021 04:17 PMSigned: 06/18/2021 04:18 PM Feliciano Castellanos MD [facility] # [id number] BILL # [id number] Name Value Range Interpretation Code Description Data [facility] Supporting Document(s) ID Date Data Source [id number] 06/16/2021 06:49:34 PM EDT [facility] Name Value Range Interpretation Code Description Data [facility] Supporting Document(s) WBC 10.3 10*3/uL (4.1-11.0) [facility] RBC 4.01 10*6/uL (4.00-5.40) [facility] HGB 12.6 g/dL (12.0-16.0) [facility] HCT 38.1 % (36.0-47.0) [facility] MCV 94.9 fL (80.0-95.0) [facility] MCH 31.3 pg (27.0-32.0) [facility] MCHC 33.0 g/dL (32.0-36.0) [facility] RDW 14.2 % (10.5-14.5) [facility] PLT 183 10*3/uL (150-450) [facility] PLATELET COUNT VERIFIED BY TECH MPV 8.7 fL (7.1-10.7) [facility] ID Date Data Source [id number] 06/16/2021 02:12:00 PM EDT [facility] DATE OF EXAM: 06/16/2021OBSTETRICAL SONO GRAM. ULTRASOUND UMBILICAL ARTERY DOPPLER INDICATION: Premature rupture of membranes COMPARISON: 06/02/2021 TECHNIQUE: Images of the pelvis were obtained using transabdominal technique. FINDINGS: The examination demonstrates a single intrauterine gestation in a breech presentation. Biparietal diameter - 68.2 mm, 27 weeks 3 daysHead circumference - 265.3mm, 28 weeks 6 daysAbdominal circumference - 245.9 mm, 28 weeks 6 daysFemoral length - 55.0mm, 29 weeks 0 daysHead/abdomen ratio - 1.08 (within normal limits)Femur/abdomen ratio - 22.4 (normal 20-24)Cephalic index - 74.2 (normal 70-86)Approximate weight - 1286 + / - 193 gm (2 lbs. 13 oz.) Average gestational age is 28 weeks four days Spontaneous motion was demonstrated on real-time examination. The heart rate is 154 beats per minute. The grade 3 placenta is located along the posterior wall. There is no evidence of placenta previa. Oligohydramnios. Amniotic fluid index is 0.7cm. (50th percentile is 14.4 cm, 2.5 percentile 7.9 cm) The cervical length is 2.5cm. The maternal uterus and adnexa are unremarkable. Previously described uterine synechiae are not clearly visualized on today's study. Umbilical artery Doppler shows presence of flow throughout systole and diastole. Systolic to diastolic ratio of 2.21 (50th percentile A 2.86, 5th percentile is 2.22) . Previously this was 2.16. IMPRESSION: Gestation - singlePresentation - breechAverage Gestational age - 28 weeks 4 days Placenta - posterior. Amniotic fluid - worsening oligohydramnios, IGOR 0.7 cm Umbilical arterial Doppler with decreased ST ratio of 2.21, similar to prior study from 06/02/2021. Previously questioned uterine synechiae are not visualized on today's study. Professional interpretation performed at [facility] .End of diagnostic report for accession: [id number] Interpreted: Feliciano Estrada MDTranscribed: 06/16/2021 02:03 PMSigned: 06/16/2021 02:12 PM Josef Estrada MD [facility] # [id number] BILL # [id number] Name Value Range Interpretation Code Description Data Gabby rce(s) Supporting Document(s) ID Date Data Source [id number] 06/16/2021 02:12:00 PM EDT [facility] DATE OF EXAM: 06/16/2021OBSTETRICAL SONO GRAM. ULTRASOUND UMBILICAL ARTERY DOPPLER INDICATION: Premature rupture of membranes COMPARISON: 06/02/2021 TECHNIQUE: Images of the pelvis were obtained using transabdominal technique. FINDINGS: The examination demonstrates a single intrauterine gestation in a breech presentation. Biparietal diameter - 68.2 mm, 27 weeks 3 daysHead circumference - 265.3mm, 28 weeks 6 daysAbdominal circumference - 245.9 mm, 28 weeks 6 daysFemoral length - 55.0mm, 29 weeks 0 daysHead/abdomen ratio - 1.08 (within normal limits)Femur/abdomen ratio - 22.4 (normal 20-24)Cephalic index - 74.2 (normal 70-86)Approximate weight - 1286 + / - 193 gm (2 lbs. 13 oz.) Average gestational age is 28 weeks four days Spontaneous motion was demonstrated on real-time examination. The heart rate is 154 beats per minute. The grade 3 placenta is located along the posterior wall. There is no evidence of placenta previa. Oligohydramnios. Amniotic fluid index is 0.7cm. (50th percentile is 14.4 cm, 2.5 percentile 7.9 cm) The cervical length is 2.5cm. The maternal uterus and adnexa are unremarkable. Previously described uterine synechiae are not clearly visualized on today's study. Umbilical artery Doppler shows presence of flow throughout systole and diastole. Systolic to diastolic ratio of 2.21 (50th percentile A 2.86, 5th percentile is 2.22) . Previously this was 2.16. IMPRESSION: Gestation - singlePresentation - breechAverage Gestational age - 28 weeks 4 days Placenta - posterior. Amniotic fluid - worsening oligohydramnios, IGOR 0.7 cm Umbilical arterial Doppler with decreased ST ratio of 2.21, similar to prior study from 06/02/2021. Previously questioned uterine synechiae are not visualized on today's study. Professional interpretation performed at [facility] .End of diagnostic report for accession: [id number] Interpreted: Feliciano Estrada MDTranscribed: 06/16/2021 02:03 PMSigned: 06/16/2021 02:12 PM Josef Estrada MD [facility] # [id number] BILL # [id number] Name Value Range Interpretation Code Description Data Gabby rce(s) Supporting Document(s) ID Date Data Source [id number] 06/15/2021 07:42:24 AM EDT [facility]CHOLA SPEC EXP DATE 06/18/2021ATI ENT ABO/Rh A POSITIVEANTIBODY SCREEN NEGATIVETESTING SITE PERFORMED AT [address] [place] [address] BANK COMMENT BLOOD TYPE CONFIRMED. Name Value Range Interpretation Code Description Data Gabby rce(s) Supporting Document(s) ID Date Data Source [id number] 06/14/2021 01:18:53 PM EDT [facility] Name Value Range Interpretation Code Description Data Gabby rce(s) Supporting Document(s) HOLD TUBE PINK [facility]CHOLA ID Date Data Source [id number] 06/10/2021 01:05:46 PM EDT [facility] SPEC EXP DATE 06/13/2021ATI ENT ABO/Rh A POSITIVEANTIBODY SCREEN NEGATIVETESTING SITE PERFORMED AT [address] COMMENT BLOOD TYPE CONFIRMED. Name Value Range Interpretation Code Description Data Gabby rce(s) Supporting Document(s) ID Date Data Source [id number] 06/06/2021 07:34:07 PM EDT [facility] SPEC EXP DATE 06/09/2021ATI ENT ABO/Rh A POSITIVEANTIBODY SCREEN NEGATIVETESTING SITE PERFORMED AT [address] COMMENT BLOOD TYPE CONFIRMED. Name Value Range Interpretation Code Description Data Gabby rce(s) Supporting Document(s) ID Date Data Source [id number] 06/04/2021 08:48:16 AM EDT [facility] Name Value Range Interpretation Code Description Data Gabby rce(s) Supporting Document(s) MAGNESIUM 5.2 mg/dL (1.7-2.4) H [facility] RESULT(S) CALLED TO AND READ BACK BYEWA MONTES ON 8S ON 06/04 [place] 0847 [place] [id number] ID Date Data Source [id number] 06/04/2021 06:39:33 AM EDT [facility] Name Value Range Interpretation Code Description Data Gabby rce(s) Supporting Document(s) MAGNESIUM 10.0 mg/dL (1.7-2.4) H [facility] RESULT(S) CALLED TO AND READ BACK BYMARLENY Worrell ON 8S ON 06/04 [place] 0638 [place] [id number] ID Date Data Source [id number] 06/03/2021 06:38:00 PM EDT [facility] DATE OF EXAM: 06/03/2021XAM:US Uterus Ltd CLINICAL INDICATION: ABRUPTION TECHNIQUE: Real-time sonographic imaging was obtained of the pelvis using grayscale and Doppler imaging. COMPARISON: ultrasound dated 06/02/2021. FINDINGS: Single live intrauterine gestation in breech position. heart rate measures 137 bpm.The placenta is posterior grade 2 without evidence of abruption or previa.IGOR measures 5.8 cm which is between the fifth and 50th percentile. IMPRESSION: 1. Single live intrauterine gestation in breech position without evidence of placental abruption. Professional int erpretation performed at [facility] .End of diagnostic report for accession: [id number] Interpreted: Feliciano Castellanos MDTranscribed: 06/03/2021 06:37 PMSigned: 06/03/2021 06:38 PM Feliciano Castellanos MD [facility] # [id number] BILL # [id number] Name Value Range Interpretation Code Description Data Gabby rce(s) Supporting Document(s) ID Date Data Source [id number] 06/05/2021 08:39:54 AM EDT [facility] SPECIMEN DESCRIPTION URINE, COLLE CTION METHOD NOT SPECIFIEDCULTURE RESULTS MIXED UROGENITAL ELIAS; PLEASE SUBMIT A NEW SPEC IMEN IF CLINICALLY INDICATED.REPORT STATUS FINAL 06/05/2021 Name Value Range Interpretation Code Description Data Gabby rce(s) Supporting Document(s) ID Date Data Source [id number] 06/03/2021 04:57:43 PM EDT [facility] Name Value Range Interpretation Code Description Data Gabby rce(s) Supporting Document(s) URINE WBC (0-5) [facility] URINE RBC (0-2) [facility] EPITHELIAL CELLS 1+ [HPF] [facility] ID Date Data Source [id number] 06/03/2021 04:30:34 PM EDT [facility] Name Value Range Interpretation Code Description Data Gabby rce(s) Supporting Document(s) COLOR [facility] APPEARANCE [facility] SPEC GRAV URINE 1.005 (1.003-1.030) [facility] PH URINE 7.5 (5.0-7.5) [facility] LEUK ESTERASE (NEG) A [facility] NITRITE URINE (NEG) [facility] PROTEIN URINE (NEG) A [facility] GLUCOSE URINE (NEG) A [facility] KETONE URINE (NEG) [facility] SALMON UROBILINOGEN 0.2 mg/dL (0-1.0) [facility] BILIRUBIN URINE (NEG) [facility] BLOOD/HGB URINE 3+ (NEG) A [facility] ID Date Data Source [id number] 06/03/2021 11:08:59 AM EDT [facility] Name Value Range Interpretation Code Description Data Gabby rce(s) Supporting Document(s) WBC 8.0 10*3/uL (4.1-11.0) [facility] [place] RBC 3.95 10*6/uL (4.00-5.40) L [facility] HGB 12.3 g/dL (12.0-16.0) [facility] HCT 36.5 % (36.0-47.0) [facility] MCV 92.2 fL (80.0-95.0) [facility] MCH 31.0 pg (27.0-32.0) [facility] MCHC 33.7 g/dL (32.0-36.0) [facility] RDW 13.7 % (10.5-14.5) [facility] PLT 251 10*3/uL (150-450) [facility] MPV 8.3 fL (7.1-10.7) [facility] ID Date Data Source [id number] 06/02/2021 06:03:55 PM EDT [facility] SPECIMEN DESCRIPTION VAGINAL/RECT ALCULTURE RESULTS NEGATIVE: BETA HEMOLYTIC STREPTOCOCCI GROUP B B Y PCRREPORT STATUS FINAL 06/02/2021 Name Value Range Interpretation Code Description Data Gabby rce(s) Supporting Document(s) ID Date Data Source [id number] 06/02/2021 01:03:13 PM EDT [facility] SPEC EXP DATE 06/05/2021ATI ENT ABO/Rh A POSITIVEANTIBODY SCREEN NEGATIVETESTING SITE PERFORMED AT [address] [place], [place] [address]BLOOD BANK COMMENT BLOOD TYPE CONFIRMED. Name Value Range Interpretation Code Description Data Gabby rce(s) Supporting Document(s) ID Date Data Source [id number] 06/02/2021 12:32:00 PM EDT [facility] DATE OF EXAM: 1EXAM: US Pregnan t Uterus Repeat, US Umbilical Artery Doppler INDICATION: PREMATURE RUPTURE OF MEMBRANES/PROM. 29 weeks 3 days. COMPARISON: 05/22/2021 and 05/19/2021 TECHNIQUE: Images of the pelvis were obtained using transabdominal technique. Spectral Doppler of the umbilical artery. FINDINGS: The examination demonstrates a single intrauterine gestation. Placenta is posterior with grade 2 changes. There is no evidence of placenta previa. presentation is breech. There is oligohydramnios. IGOR is 6.3 cm (50th% is 14.5 cm, 2.5th% percentiles 8.4 cm). Spontaneous motion was demonstrated on real-time examination. The heart rate is 137 beats per minute. Examination was not tailored for anatomic evaluation and is limited due to the low fluid volume. Fluid is seen in the area of the urinary bladder and stomach. A thick band is seen near the fundus adjacent to the placenta, raising the possibility of a uterine synechia. Maternal adnexa are unremarkable. The cervical length is 3.5cm. Biparietal diameter - 66.5 mm, 26 weeks 6 daysHead circumference - 272.6 mm, 29 weeks 5 daysAbdominal circumference - 245.2 mm, 28 weeks 5 daysFemoral length - 52.2 mm, 27 weeks 6 daysHead/abdomen ratio - 1.11 (within normal limits)Femur/abdomen ratio - 21.3 (normal 20-24)Cephalic index - 72.9 (normal 70-86)Approximate weight - 1223 gm Average gestational age - 28 weeks 2 days Umbilical artery Doppler shows presence of flow throughout systole and diastole. Systolic to diastolic ratio of 2.16 (50th percentile at 29 weeks is 3.03). Previously this was 2.20. IMPRESSION: Gestation - singlePresentation - breechAverage Gestational age - 28 weeks 2 days Placenta - posteriorAmniotic fluid - oligohydramnios, IGOR 6.3 cm, less than 2.5th percentileComments: Umbilical artery Doppler with decreased S/D ratio of 2.16, similar to prior. Possible uterine synechia near the fundus. Professional interpretation performed at [facility] .End of diagnostic report for accession: [id number] Interpreted: Betzy Patricio MDTranscribed: 06/02/2021 12:18 PMSigned: 06/02/2021 12:32 PM Betzy Patricio MD [facility] # [id number] BILL # [id number] Name Value Range Interpretation Code Description Data [facility]by rce(s) Supporting Document(s) ID Date Data Source [id number] 06/02/2021 12:32:00 PM EDT [facility] DATE OF EXAM: 06/02/2021XAM: US Pregnan t Uterus Repeat, US Umbilical Artery Doppler INDICATION: PREMATURE RUPTURE OF MEMBRANES/PROM. 29 weeks 3 days. COMPARISON: 05/22/2021 and 05/19/2021 TECHNIQUE: Images of the pelvis were obtained using transabdominal technique. Spectral Doppler of the umbilical artery. FINDINGS: The examination demonstrates a single intrauterine gestation. Placenta is posterior with grade 2 changes. There is no evidence of placenta previa. presentation is breech. There is oligohydramnios. IGOR is 6.3 cm (50th% is 14.5 cm, 2.5th% percentiles 8.4 cm). Spontaneous motion was demonstrated on real-time examination. The heart rate is 137 beats per minute. Examination was not tailored for anatomic evaluation and is limited due to the low fluid volume. Fluid is seen in the area of the urinary bladder and stomach. A thick band is seen near the fundus adjacent to the placenta, raising the possibility of a uterine synechia. Maternal adnexa are unremarkable. The cervical length is 3.5cm. Biparietal diameter - 66.5 mm, 26 weeks 6 daysHead circumference - 272.6 mm, 29 weeks 5 daysAbdominal circumference - 245.2 mm, 28 weeks 5 daysFemoral length - 52.2 mm, 27 weeks 6 daysHead/abdomen ratio - 1.11 (within normal limits)Femur/abdomen ratio - 21.3 (normal 20-24)Cephalic index - 72.9 (normal 70-86)Approximate weight - 1223 gm Average gestational age - 28 weeks 2 days Umbilical artery Doppler shows presence of flow throughout systole and diastole. Systolic to diastolic ratio of 2.16 (50th percentile at 29 weeks is 3.03). Previously this was 2.20. IMPRESSION: Gestation - singlePresentation - breechAverage Gestational age - 28 weeks 2 days Placenta - posteriorAmniotic fluid - oligohydramnios, IGOR 6.3 cm, less than 2.5th percentileComments: Umbilical artery Doppler with decreased S/D ratio of 2.16, similar to prior. Possible uterine synechia near the fundus. Professional interpretation performed at [facility] .End of diagnostic report for accession: [id number] Interpreted: Betzy Particio MDTranscribed: 06/02/2021 12:18 PMSigned: 06/02/2021 12:32 PM Betzy Patricio MD [facility] # [id number] BILL # [id number] Name Value Range Interpretation Code Description Data [facility]) Supporting Document(s) ID Date Data Source [id number] 05/29/2021 08:00:18 AM EDT [facility] SPEC EXP DATE 06/01/2021ATI ENT ABO/Rh A POSITIVEANTIBODY SCREEN NEGATIVETESTING SITE PERFORMED AT [address] [employer] [place] [address] COMMENT BLOOD TYPE CONFIRMED. Name Value Range Interpretation Code Description Data [facility](s) Supporting Document(s) ID Date Data Source [id number] 05/25/2021 08:45:17 AM EDT [facility] SPEC EXP DATE 05/28/2021ATI ENT ABO/Rh A POSITIVEANTIBODY SCREEN NEGATIVETESTING SITE PERFORMED AT [address] [facility] [place] [address] COMMENT BLOOD TYPE CONFIRMED. Name Value Range Interpretation Code Description Data [facility](s) Supporting Document(s) ID Date Data Source [id number] 05/22/2021 12:52:34 PM EDT [facility] Name Value Range Interpretation Code Description Data [facility](s) Supporting Document(s) WBC 9.5 10*3/uL (4.1-11.0) [facility] [place] RBC 3.85 10*6/uL (4.00-5.40) L [facility] HGB 12.0 g/dL (12.0-16.0) [facility] HCT 35.6 % (36.0-47.0) L [facility] MCV 92.3 fL (80.0-95.0) [facility] MCH 31.2 pg (27.0-32.0) [facility] MCHC 33.8 g/dL (32.0-36.0) [facility] RDW 13.7 % (10.5-14.5) [facility] PLT 207 10*3/uL (150-450) [facility] MPV 8.1 fL (7.1-10.7) [facility] ID Date Data Source [id number] 05/22/2021 01:13:53 PM EDT [facility] Name Value Range Interpretation Code Description Data [facility](s) Supporting Document(s) COLOR [facility] APPEARANCE [facility] SPEC GRAV URINE 1.006 (1.003-1.030) [facility] PH URINE 6.5 (5.0-7.5) [facility] LEUK ESTERASE (NEG) [facility] NITRITE URINE (NEG) [facility] PROTEIN URINE (NEG) [facility] GLUCOSE URINE (NEG) [facility] KETONE URINE (NEG) [facility] [place] UROBILINOGEN 0.2 mg/dL (0-1.0) [facility] [place] BILIRUBIN URINE (NEG) [facility] BLOOD/HGB URINE (NEG) [facility] URINE WBC (0-5) [facility] URINE RBC (0-2) [facility] EPITHELIAL CELLS 1+ [HPF] [facility] ID Date Data Source [id number] 05/22/2021 10:41:00 AM EDT [facility] DATE OF EXAM: 05/22/2021XAM: Ultrasound umbilical artery Doppler HISTORY: PROM, IUGR. COMPARISON: 05/19/2021 . FINDINGS: There is a single active intrauterine in breech presentation with a heart rate of 146 BPM. The cord Doppler S/D ratio equals 2.34 (normal mean = 3.23 ). This previously measured 2.20. Professional interpretation performed at [facility] .End of diagnostic report for accession: [id number] Interpreted: Marv Remy MDTranscribed: 05/22/2021 10:37 AMSigned: 05/22/2021 10:41 AM Marv Remy MD [facility] # [id number] BILL # [id number] Name Value Range Interpretation Code Description Data [facility](s) Supporting Document(s) ID Date Data Source [id number] 05/21/2021 09:48:31 PM EDT [facility] SPEC EXP DATE 05/24/2021ATI ENT ABO/Rh A POSITIVEANTIBODY SCREEN NEGATIVETESTING SITE PERFORMED AT [address] [place] [address] BANK COMMENT BLOOD TYPE CONFIRMED. Name Value Range Interpretation Code Description Data [facility] r[facility](s) Supporting Document(s) ID Date Data Source [id number] 05/21/2021 02:46:03 PM EDT [facility] Name Value Range Interpretation Code Description Data [facility](s) Supporting Document(s) HOLD TUBE PINK [facility] CANCHOLA ID Date Data Source [id number] 05/19/2021 09:31:00 AM EDT [facility] DATE OF EXAM: 05/19/2021XAM: US Pregnan t Uterus Repeat, US Umbilical Artery Doppler INDICATION: PREMATURE RUPTURE OF MEMBRANES/PROM. COMPARISON: 05/15/2021 FINDINGS: Single intrauterine gestation is identified in a cephalic position. Cardiac activity and movement are observed. heart rate is 150 . Amniotic fluid index 5.29, less than 2.5%ile. Placenta is posterior with no previa, low lying placenta, or abruption. Systolic to diastolic ratio average 2.20 (below 5th percentile) range 2.0-2.36. Biparietal diameter: 62 mm, 25 weeks zero daysHead circumference: 252 mm, 27 weeks two daysAbdominal circumference: 220 mm 26 weeks three days Femoral length: 49 mm 26 weeks three daysMean gestational age by biometry 26 weeks two daysEstimated weight 938 gm. 2 lbs. 1 oz. Limited anatomy review secondary to oligohydramnios and position. No ventriculomegaly. Stomach appears unremarkable. IMPRESSION: Single live intrauterine gestation in a cephalic presentation with measured m kayla gestational age of 26 weeks two days . Oligohydramnios less than 2.5 percentile. Systolic to diastolic umbilical artery Doppler ratio 2.20, less than fifth percentile. Limited anatomy secondary oligohydramnios in position. Professional interpretation performed at [facility] [phone].End of diagnostic report for accession: [id number] Interpreted: Marv James MDTranscribed: 05/19/2021 09:24 AMSigned: 05/19/2021 09:31 AM Marv James MD [facility] # [id number] BILL # [id number] Name Value Range Interpretation Code Description Data [facility] r[facility](s) Supporting Document(s) ID Date Data Source [id number] 05/19/2021 09:31:00 AM EDT [facility] DATE OF EXAM: 05/19/2021XAM: US Pregnan t Uterus Repeat, US Umbilical Artery Doppler INDICATION: PREMATURE RUPTURE OF MEMBRANES/PROM. COMPARISON: 05/15/2021 FINDINGS: Single intrauterine gestation is identified in a cephalic position. Cardiac activity and movement are observed. heart rate is 150 . Amniotic fluid index 5.29, less than 2.5%ile. Placenta is posterior with no previa, low lying placenta, or abruption. Systolic to diastolic ratio average 2.20 (below 5th percentile) range 2.0-2.36. Biparietal diameter: 62 mm, 25 weeks zero daysHead circumference: 252 mm, 27 weeks two daysAbdominal circumference: 220 mm 26 weeks three days Femoral length: 49 mm 26 weeks three daysMean gestational age by biometry 26 weeks two daysEstimated weight 938 gm. 2 lbs. 1 oz. Limited anatomy review secondary to oligohydramnios and position. No ventriculomegaly. Stomach appears unremarkable. IMPRESSION: Single live intrauterine gestation in a cephalic presentation with measured m kayla gestational age of 26 weeks two days . Oligohydramnios less than 2.5 percentile. Systolic to diastolic umbilical artery Doppler ratio 2.20, less than fifth percentile. Limited anatomy secondary oligohydramnios in position. Professional interpretation performed at [facility] [phone].End of diagnostic report for accession: [id number] Interpreted: Marv James MDTranscribed: 05/19/2021 09:24 AMSigned: 05/19/2021 09:31 AM Marv James MD [facility] [address] # [id number] [facility] # [id number] Name Value Range Interpretation Code Description Data [facility] r[facility](s) Supporting Document(s) ID Date Data Source [id number] 05/17/2021 01:00:38 PM EDT [facility] ANTIBODY SCREEN NEGATIVESPEC EXP DATE 05/20/2021TESTING SITE PERFORMED AT [address] [place] [address] BANK COMMENT BLOOD TYPE CONFIRMED. Name Value Range Interpretation Code Description Data [facility] e(s) Supporting Document(s) ANTIBODY SCREEN [facility] ANTIBODY SCREEN NEGATIVE ID Date Data Source [id number] 05/16/2021 09:58:24 AM EDT [facility] Name Value Range Interpretation Code Description Data [facility](s) Supporting Document(s) WBC 7.6 10*3/uL (4.1-11.0) [facility] [place] RBC 3.86 10*6/uL (4.00-5.40) L [facility] HGB 11.8 g/dL (12.0-16.0) L [facility] HCT 35.6 % (36.0-47.0) L [facility] MCV 92.4 fL (80.0-95.0) [facility] MCH 30.5 pg (27.0-32.0) [facility] MCHC 33.0 g/dL (32.0-36.0) [facility] RDW 13.9 % (10.5-14.5) [facility] PLT 208 10*3/uL (150-450) [facility] MPV 8.0 fL (7.1-10.7) [facility] ID Date Data Source [id number] 05/15/2021 12:16:00 PM EDT [facility] DATE OF EXAM: 05/15/2021XAM: Uterus Ltd, US Umbilical Artery Doppler CLINICAL INDICATION: IUGR, PREMATURE RUPTURE OF MEMBRANE TECHNIQUE: Real-time sonographic imaging was obtained of the pelvis. COMPARISON: ultrasound dated 05/12/2021. FINDINGS: Single live intrauterine gestation in vertex position.Cervix funneling is identified to the level of the external os.The placenta is grade 3 without evidence of abruption or previa and is not low-lying.IGOR measures 6.1 cm consistent with oligohydramnios. heart rate measures 140 bpm.Umbilical artery Doppler ratio measures 2.4 which is within normal limits IMPRESSION: 1. Normal umbilical artery Doppler ratio. 2. Cervical funneling the level of the external os. 3. Oligohydramnios. Professional interpretation performed at [facility] .End of diagnostic report for accession: [id number] Interpreted: Feliciano Castellanos MDTranscribed: 05/15/2021 12:14 PMSigned: 05/15/2021 12:16 PM Feliciano Castellanos MD [facility] # [id number] BILL # [id number] Name Value Range Interpretation Code Description Data Gab[facility] e(s) Supporting Document(s) ID Date Data Source [id number] 05/15/2021 12:16:00 PM EDT [facility] DATE OF EXAM: 05/15/2021XAM: Uterus Ltd, US Umbilical Artery Doppler CLINICAL INDICATION: IUGR, PREMATURE RUPTURE OF MEMBRANE TECHNIQUE: Real-time sonographic imaging was obtained of the pelvis. COMPARISON: ultrasound dated 05/12/2021. FINDINGS: Single live intrauterine gestation in vertex position.Cervix funneling is identified to the level of the external os.The placenta is grade 3 without evidence of abruption or previa and is not low-lying.IGOR measures 6.1 cm consistent with oligohydramnios. heart rate measures 140 bpm.Umbilical artery Doppler ratio measures 2.4 which is within normal limits IMPRESSION: 1. Normal umbilical artery Doppler ratio. 2. Cervical funneling the level of the external os. 3. Oligohydramnios. Professional interpretation performed at [facility] .End of diagnostic report for accession: [id number] Interpreted: Feliciano Castellanos MDTranscribed: 05/15/2021 12:14 PMSigned: 05/15/2021 12:16 PM Feliciano Castellanos MD [facility] # [id number] BILL # [id number] Name Value Range Interpretation Code Description Data [facility] rce(s) Supporting Document(s) ID Date Data Source [id number] 05/14/2021 08:02:10 AM EDT [facility] ANTIBODY SCREEN NEGATIVESPEC EXP DATE 05/17/2021TESTING SITE PERFORMED AT [address] [place] [address] BANK COMMENT BLOOD TYPE CONFIRMED. Name Value Range Interpretation Code Description Data [facility] rce(s) Supporting Document(s) ID Date Data Source [id number] 05/12/2021 01:16:00 PM EDT [facility] DATE OF EXAM: 05/12/2021XAM: Ultrasound obstetrical. HISTORY: SEVERE IUGR COMPARISON: 05/07/2021 FINDINGS: Single intrauterine gestation is identified in breech presentation. Cardiac activity and movement are observed. heart rate is 154 BPM. There is oligohydramnios with an IGOR of 4.1 cm. (2.5th percentile is 8.9 cm, 50th percentile is 14.7 cm). This previously measured 4.0 cm. The cord Doppler S/D ratio is 2.03 (5th percentile is 2.50 , 50th percentile is 3.33). This previously measured 2.68. IMPRESSION: Single live intrauterine gestation in breech presentation with oligohydramnios and an IGOR of 4.1 cm. Cord Doppler S/D ratio is 2.03 . K3End of diagnostic report for accession: [id number] Interpreted: Marv Remy MDTranscribed: 05/12/2021 01:11 PMSigned: 05/12/2021 01:16 PM Marv Remy MD [facility] # [id number] BILL # [id number] Name Value Range Interpretation Code Description Data [facility] rce(s) Supporting Document(s) ID Date Data Source [id number] 05/12/2021 01:16:00 PM EDT [facility] DATE OF EXAM: 05/12/2021XAM: Ultrasound obstetrical. HISTORY: SEVERE IUGR COMPARISON: 05/07/2021 FINDINGS: Single intrauterine gestation is identified in breech presentation. Cardiac activity and movement are observed. heart rate is 154 BPM. There is oligohydramnios with an IGOR of 4.1 cm. (2.5th percentile is 8.9 cm, 50th percentile is 14.7 cm). This previously measured 4.0 cm. The cord Doppler S/D ratio is 2.03 (5th percentile is 2.50 , 50th percentile is 3.33). This previously measured 2.68. IMPRESSION: Single live intrauterine gestation in breech presentation with oligohydramnios and an IGOR of 4.1 cm. Cord Doppler S/D ratio is 2.03 . K3End of diagnostic report for accession: [id number] Interpreted: Marv Remy MDTranscribed: 05/12/2021 01:11 PMSigned: 05/12/2021 01:16 PM Marv Remy MD [facility] # [id number] BILL # [id number] Name Value Range Interpretation Code Description Data [facility] r[facility](s) Supporting Document(s) ID Date Data Source [id number] 05/10/2021 02:09:00 PM EDT [facility] DATE OF EXAM: 05/10/2021XAM: Ultrasound vascular: Bilateral lower extremity venous with spectral analysis. HISTORY: Bilateral calf pain. COMPARISON: None PROCEDURE: Sagittal and transverse real-time linear array with/without compression and color-flow Doppler with spectral analysis of the deep venous system of the bilateral lower extremities were obtained. FINDINGS: Flow is identified in the common femoral, femoral, popliteal, posterior tibial, anterior tibial and peroneal veins. No intraluminal thrombus is identified. Visible deep venous segments are compressible. IMPRESSION: No evidence of deep venous thrombosis. X1End of diagnostic report for accession: [id number] Interpreted: Latanya Paulson MDTranscribed: 05/10/2021 02:09 PMSigned: 05/10/2021 02:09 PM Latanya Paulson MD [facility] # [id number] BILL # [id number] Name Value Range Interpretation Code Description Data [facility] rce(s) Supporting Document(s) ID Date Data Source [id number] 05/10/2021 10:46:50 AM EDT [facility] SPEC EXP DATE 05/13/2021ATI ENT ABO/Rh A POSITIVEANTIBODY SCREEN NEGATIVETESTING SITE PERFORMED AT [address] [place] [address] COMMENT BLOOD TYPE CONFIRMED. Name Value Range Interpretation Code Description Data [facility]by rce(s) Supporting Document(s) ID Date Data Source [id number] 05/07/2021 05:58:59 PM EDT [facility] Name Value Range Interpretation Code Description Data [facility] Document(s) Test Name [facility] ospital Performing Lab [facility] Test Result [facility] ID Date Data Source [id number] 05/07/2021 01:11:00 PM [facility]: 1EXAM: Ultrasound obstetrical. HISTORY: ANATOMY COMPARISON: 05/05/2021 FINDINGS: Single intrauterine gestation is identified in breech presentation. Cardiac activity and movement are observed. heart rate is 154 BPM. There is posterior position , grade 2-3 placenta. No abruption or placenta previa. There is oligohydramnios. The IGOR is 4 cm. 2.5th percentile is 8.9 cm. Both upper and lower extremities are visualized. The head, cervical spine, and thoracic spine. Normal. The lower spine is not well- visualized due to positioning. There is a four-chamber heart and three- vessel cord. The stomach, kidneys, and urinary bladder are visualized. IMPRESSION: Single live intrauterine gestation in breech presentation with oligohydramnios and an IGOR of 4.0 cm. No abnormalities identified, but with limited views of lower spine. K3End of diagnostic report for accession: [id number] Interpreted: Marv Remy MDTranscribed: 05/07/2021 01:06 PMSigned: 05/07/2021 01:11 PM Marv Remy MD [facility] # [id number] BILL # [id number] Name Value Range Interpretation Code Description Data [facility] rce(s) Supporting Document(s) ID Date Data Source [id number] 05/06/2021 07:34:05 AM EDT [facility] SPEC EXP DATE 1PATI ENT ABO/Rh A POSITIVEANTIBODY SCREEN NEGATIVETESTING SITE PERFORMED AT [address] [place] [address] COMMENT BLOOD TYPE CONFIRMED. Name Value Range Interpretation Code Description Data [facility] Supporting Document(s) TYPE AND SCREEN [facility] PATIENT ABO/Rh A POSITIVE ID Date Data Source [id number] 05/05/2021 12:56:00 PM EDT [facility] DATE OF EXAM: 1EXAM: Ultrasound obstetrical. HISTORY: INTERVAL GROWTH COMPARISON: 04/21/2021 FINDINGS: Single intrauterine gestation is identified in breech presentation. Cardiac activity and movement are observed. heart rate is 146 BPM. There is posterior position , grade 1 placenta. No placenta previa. There is oligohydramnios. The IGOR is 4.2 cm. 50th percentile is 14.7 cm. 2.5th% is 8.9 cm. The cervix measures 2.9 cm. MEASUREMENTS: BPD 5.7 cm, CORRESPONDS to 23 weeks 4 days. Head circumference 22.4 cm, CORRESPONDS to 24 weeks 3 days. Abdominal circumference 18.8 cm, CORRESPONDS to 23 weeks 4 days. Femur length 4.1 cm , CORRESPONDS to 23 weeks 1 day. COMPOSITE ULTRASOUND measures 23 weeks 5 days. Predicted gestational age from [facility] of 08/15/2021 is 25 weeks 3 days. Cephalic index and other measurement ratios are within normal limits. Estimated weight 599 + / - 90 gm. The cord Doppler S/D ratio equals 2.68 (normal mean = 3.45 , lower limits of normal = 2.56 ) IMPRESSION: Single live intrauterine gestation in breech presentation with U/S measured gestational age 23 weeks 5 days. There is oligohydramnios with an IGOR of 4.2 cm. The cord Doppler S/D ratio is 2.68 which is in the normal range. Professional interpretation performed at [facility] .End of diagnostic report for accession: [id number] Interpreted: Marv Remy MDTranscribed: 05/05/2021 12:49 PMSigned: 05/05/2021 12:56 PM Marv Remy MD [facility] # [id number] BILL # [id number] Name Value Range Interpretation Code Description Data [facility] r[facility](s) Supporting Document(s) ID Date Data Source [id number] 05/05/2021 12:56:00 PM EDT [facility] DATE OF EXAM: 05/05/2021XAM: Ultrasound obstetrical. HISTORY: INTERVAL GROWTH COMPARISON: 04/21/2021 FINDINGS: Single intrauterine gestation is identified in breech presentation. Cardiac activity and movement are observed. heart rate is 146 BPM. There is posterior position , grade 1 placenta. No placenta previa. There is oligohydramnios. The IGOR is 4.2 cm. 50th percentile is 14.7 cm. 2.5th% is 8.9 cm. The cervix measures 2.9 cm. MEASUREMENTS: BPD 5.7 cm, CORRESPONDS to 23 weeks 4 days. Head circumference 22.4 cm, CORRESPONDS to 24 weeks 3 days. Abdominal circumference 18.8 cm, CORRESPONDS to 23 weeks 4 days. Femur length 4.1 cm , CORRESPONDS to 23 weeks 1 day. COMPOSITE ULTRASOUND measures 23 weeks 5 days. Predicted gestational age from [facility] of 08/15/2021 is 25 weeks 3 days. Cephalic index and other measurement ratios are within normal limits. Estimated weight 599 + / - 90 gm. The cord Doppler S/D ratio equals 2.68 (normal mean = 3.45 , lower limits of normal = 2.56 ) IMPRESSION: Single live intrauterine gestation in breech presentation with U/S measured gestational age 23 weeks 5 days. There is oligohydramnios with an IGOR of 4.2 cm. The cord Doppler S/D ratio is 2.68 which is in the normal range. Professional interpretation performed at [facility] .End of diagnostic report for accession: [id number] Interpreted: Marv Remy MDTranscribed: 05/05/2021 12:49 PMSigned: 05/05/2021 12:56 PM Marv Remy MD [facility] [address] # [id number] BILL # [id number] Name Value Range Interpretation Code Description Data [facility](s) Supporting Document(s) ID Date Data Source [id number] 05/02/2021 09:24:42 AM EDT [facility] SPEC EXP DATE 05/05/2021ATI ENT ABO/Rh A POSITIVEANTIBODY SCREEN NEGATIVETESTING SITE PERFORMED AT [address] [place] [address] BANK COMMENT BLOOD TYPE CONFIRMED. Name Value Range Interpretation Code Description Data [facility](s) Supporting Document(s) ID Date Data Source [id number] 04/28/2021 01:29:14 PM EDT [facility] Name Value Range Interpretation Code Description Data [facility](s) Supporting Document(s) POC GLUCOSE 81 mg/dL (70-99) [facility] PERFORMED BY CLINICAL STAFF ID Date Data Source [id number] 04/28/2021 12:19:31 PM EDT [facility] SPEC EXP DATE 05/01/2021ATI ENT ABO/Rh A POSITIVEANTIBODY SCREEN NEGATIVETESTING SITE PERFORMED AT [address] [place] [address] COMMENT BLOOD TYPE CONFIRMED. Name Value Range Interpretation Code Description Data [facility] r[facility](s) Supporting Document(s) ID Date Data Source [id number] 04/28/2021 02:54:01 PM EDT [facility] Name Value Range Interpretation Code Description Data [facility] r[facility](s) Supporting Document(s) SPECIMEN DESCRIPTION [facility] C. TRACHOMATIS (NEG) [facility] THIS ASSAY AMPLIFIES AND DETECTS TARGETD NA USING RADAR OPERATOR-MEDIATEDAMPLIFICATION N. GONORRHOEAE (NEG) [facility] THIS ASSAY AMPLIFIES AND DETECTS TARGETD NA USING RADAR OPERATOR-MEDIATEDAMPLIFICATION COMMENT [facility] SPECIMEN COLLECTIONTHE PATIENT CAPRICE ULD NOT HAVE URINATED FOR ATLEAST ONE HOUR PRIOR TO COLLECTION.FEMALE PATIENTS SHOULD NOT CLEANSE PRIOR TOCOLLECTING URINE SPECIMENS THIS MAYINTERFERE WITH THE TEST.THE PATIENT SHOULD PROVIDE 20-30 ML OF THEINITIAL URINE STREAM INTO A CONTAINERWITHOUT PRESERVATIVES. ID Date Data Source [id number] 04/24/2021 08:47:32 PM EDT [facility] SPEC EXP DATE 04/27/2021ATI ENT ABO/Rh A POSITIVEANTIBODY SCREEN NEGATIVETESTING SITE PERFORMED AT [address] [place] [address] COMMENT BLOOD TYPE CONFIRMED. Name Value Range Interpretation Code Description Data [facility] r[facility](s) Supporting Document(s) ID Date Data Source [id number] 04/23/2021 05:53:21 PM EDT [facility] Name Value Range Interpretation Code Description Data [facility] r[facility](s) Supporting Document(s) COLOR [facility] APPEARANCE [facility] SPEC GRAV URINE 1.025 (1.003-1.030) [facility] PH URINE 6.0 (5.0-7.5) [facility] LEUK ESTERASE (NEG) [facility] CRITERIA FOR CULTURE NOT MET.CULTURE CAN BE ADDED WITHIN 36 HOURS OFCOLLECTION. NITRITE URINE (NEG) [facility] PROTEIN URINE (NEG) [facility] GLUCOSE URINE (NEG) [facility] KETONE URINE (NEG) [facility] UROBILINOGEN 1.0 mg/dL (0-1.0) [facility] BILIRUBIN URINE (NEG) [facility] BLOOD/HGB URINE (NEG) [facility] ID Date Data Source [id number] 04/21/2021 10:35:46 PM EDT [facility] Name Value Range Interpretation Code Description Data [facility] r[facility](s) Supporting Document(s) HIV 1/2 SCREEN @ (NEG) [facility] Testing performed using Siemens [employer] taur 4th gen CHIV combo assay.This assay detects the HIV1 p24 antigenin addition to antibodies to HIV1 and HIV2. ID Date Data Source [id number] 04/21/2021 04:50:00 PM EDT [facility] Name Value Range Interpretation Code Description Data [facility] rce(s) Supporting Document(s) SARS coronavirus 2 RNA [Presence] in Res piratory specimen by [place] with probe detection NOT DETECTED [facility] This lab was reported by [facility]. ID Date Data Source [id number] 04/21/2021 08:45:14 PM EDT [facility] Name Value Range Interpretation Code Description Data Gab[facility] rce(s) Supporting Document(s) SPECIMEN DESCRIPTION [facility] COVID19 RESULT (NDET) [facility] THIS ASSAY AMPLIFIES AND DETECTSTHE TARG ET RNA USING REAL-TIME PCR.TESTING PERFORMED ON THE [employer] COMMENT [facility] UNDER AN EMERGENCY USE AUTHORIZATION(EUA ) FOR THE DETECTION AND/OR DIAGNOSISOF THE VIRUS THAT CAUSES COVID-19.NEGATIVE 2019_NCOV RT-PCR RESULTS DONOT PRECLUDE 2019_NCOV INFECTION ANDSHOULD NOT BE USED THE SOLE BASISFOR PATIENT MANAGEMENT DECISIONS. FIRST TEST [facility] [employer]PL[employer]ED IN [employer] [facility] [facility] SYMPTOMATIC [facility] DATE OF SYMPT ONSET Lab [facility] [place] HOSPITALIZED [facility] [place] [facility] ICU [facility] CONGREGATE CARE SET [facility] [place] [facility] [place] [facility] [place] ID Date Data Source [id number] 04/21/2021 04:20:45 PM EDT [facility] [place] [facility] [place] Name Value Range Interpretation Code Description Data Gabby rce(s) Supporting Document(s) COLOR [facility] [place] [facility] [place] APPEARANCE [facility] [place] [facility] [place] SPEC GRAV URINE 1.006 (1.003-1.030) [facility] [place] PH URINE 7.0 (5.0-7.5) [facility] [place] [facility] [place] LEUK ESTERASE (NEG) [facility] [place] [facility] [place] CRITERIA FOR CULTURE NOT MET.CULTURE CAN BE ADDED WITHIN 36 HOURS OFCOLLECTION. NITRITE URINE (NEG) [facility] [place] [facility] [place] PROTEIN URINE (NEG) [facility] [place] [facility] [place] GLUCOSE URINE (NEG) [facility] [place] [facility] [place] KETONE URINE (NEG) [facility] [place] UROBILINOGEN 0.2 mg/dL (0-1.0) [facility] [place] [facility] [place] BILIRUBIN URINE (NEG) [facility] [place] [facility] [place] BLOOD/HGB URINE (NEG) [facility] [place] [facility] [place] ID Date Data Source [id number] 04/21/2021 04:00:00 PM EDT [facility] DATE OF EXAM: 04/21/2021XAM: Ultrasound obstetrical. HISTORY: OLIGOHYDRAMNIOS COMPARISON: No relevant prior studies are available for comparison. FINDINGS: Single intrauterine gestation is identified in breech presentation. Cardiac activity and movement are observed. heart rate is 140 BPM. There is posterior position , grade 1 placenta. No placenta previa. There is oligohydramnios. The IGOR is 2.7 cm. 2.5th percentile is 9.0 cm. 50th percentile is 14.6 cm. The cervix measures 2.1 cm. There is limited visualization of the anatomy due to oligohydramnios. The feet, stomach, kidneys, and urinary bladder are visualized. MEASUREMENTS: BPD 5.0 cm, CORRESPONDS to 21 weeks 1 day. Head circumference 19.8 cm, CORRESPONDS to 22 weeks 0 days. Abdominal circumference 17.4 cm, CORRESPONDS to 22 weeks 2 days. Femur length 3.7 cm , CORRESPONDS to 21 weeks 4 days. The cerebellum measures 2.5 cm corresponding to 23 weeks 2 days. COMPOSITE ULTRASOUND measures 21 weeks 5 days. Predicted gestational age from EDC of 08/15/2021 is 23 weeks 3 days. Cephalic index and other measurement ratios are within normal limits. Estimated weight 464 + / - 70 gm. IMPRESSION: Single live intrauterine gestation in breech presentation with U/S measured gestational age 21 weeks 5 days. There is oligohydramnios with an IGOR of 2.7 cm. K3End of diagnostic report for accession: [id number] Interpreted: Marv Remy MDTranscribed: 04/21/2021 03:57 PMSigned: 04/21/2021 04:00 PM Marv Remy MD [facility] [address] # [id number] BILL # [id number] Name Value Range Interpretation Code Description Data Gabby rce(s) Supporting Document(s) ID Date Data Source [id number] 04/24/2021 02:12:54 AM EDT Lab [facility] Name Value Range Interpretation Code Description Data Gabby rce(s) Supporting Document(s) RUBELLA IGM AB <10.0 [facility] Reference range: <=19.9Unit: AU/mL INTER PRETIVE INFORMATION: Rubella Ab, IgM 19.9 AU/mL or less........ Not Detected 20.0-24.9 AU/mL........... Indeterminate-Repeat testing in 10-14 days may be helpful. 25.0 AU/mL or greater..... Detected-IgM antibody to Rubella detected which may indicate a current or recent infection or immunization. Testing immediately post-exposure is of no value without a later convalescent specimen. While the presence of IgM antibodies suggest current or recent infection, low levels of IgM antibodies may occasionally persist for more than 12 months post-infection or immunization. The magnitude of the measured result is not indicative of the amount of antibody present. Performed By: [employer] [address] [place] [id number] Board Operator: Angella Gonzalez MD ID Date Data Source [id number] 04/22/2021 07:22:10 PM EDT [facility] [place] SPECIMEN DESCRIPTION VAGINAL/RECT ALCULTURE RESULTS NEGATIVE: BETA HEMOLYTIC STREPTOCOCCI GROUP B B Y PCRREPORT STATUS FINAL 04/22/2021 Name Value Range Interpretation Code Description Data Gabby rce(s) Supporting Document(s) ID Date Data Source [id number] 04/22/2021 01:26:44 PM EDT [facility] [place] [facility] [place] Name Value Range Interpretation Code Description Data Gabby rce(s) Supporting Document(s) RUBELLA IGG AB @ [facility] [place] [facility] IgG antibody to Rubella detected. IgGan tibody levels are at a level consideredto indicate positive immunity. ID Date Data Source [id number] 04/21/2021 10:14:09 PM EDT [facility] [place] Name Value Range Interpretation Code Description Data Gabby rce(s) Supporting Document(s) TREPONEMA IGG/IGM @ (NEG) Lab [facility] [place] ID Date Data Source [id number] 04/21/2021 10:03:13 PM EDT [facility] [place] Name Value Range Interpretation Code Description Data Gabby rce(s) Supporting Document(s) HEPATITIS B S AG @ (NEG) Lab [facility] of [place] ID Date Data Source [id number] 04/21/2021 05:01:47 PM EDT [facility] [place] SPEC EXP DATE 04/24/2021ATI ENT ABO/Rh A POSITIVEANTIBODY SCREEN NEGATIVETESTING SITE PERFORMED AT [address] [facility] [facility] [address] Name Value Range Interpretation Code Description Data Gabby rce(s) Supporting Document(s) TYPE AND SCREEN [facility] [place] [facility] [place] PATIENT ABO/Rh A POSITIVE ID Date Data Source [id number] 04/21/2021 04:15:03 PM EDT [facility] [place] SPECIMEN DESCRIPTION VAGINAL SPEC IMENRESULT NEGATIVE FOR TRICHOMONAS VAGINALIS BY DNA PROBE NEGATIVE FOR SANGITA SPECIES BY DNA PROBE NEGATIVE FOR GARDNERELLA VAGINALIS BY DNA PROBEPERFORMED AT [address] [place] [address] REPORT STATUS FINAL 04/21/2021 Name Value Range Interpretation Code Description Data Gabby rce(s) Supporting Document(s) ID Date Data Source [id number] 04/21/2021 02:55:04 PM EDT [facility] [place] Name Value Range Interpretation Code Description Data Gabby rce(s) Supporting Document(s) WBC 10.3 10*3/uL (4.1-11.0) [facility] [place] [facility] [place] RBC 3.96 10*6/uL (4.00-5.40) L [facility] [place] [facility] [place] HGB 11.9 g/dL (12.0-16.0) L [facility] [place] [facility] [place] HCT 35.8 % (36.0-47.0) L [facility] [place] [facility] [place] PERFORMED [facility] [address] [place] [address] MCV 90.3 fL (80.0-95.0) [facility] [place] [facility] [place] MCH 30.0 pg (27.0-32.0) [facility] [place] [facility] [place] MCHC 33.3 g/dL (32.0-36.0) [facility] [place] [facility] [place] RDW 14.7 % (10.5-14.5) H [facility] [place] [facility] [place] PLT 221 10*3/uL (150-450) [facility] [place] [facility] [place] MPV 8.3 fL (7.1-10.7) [facility] [place] [facility] [place] ID Date Data Source [facility], [facility] 04/04/2021 12:00:00 AM EDT eCW1 ([facility]) Name Value Range Interpretation Code Description Data Gabby rce(s) Supporting Document(s) [facility] OBS [facility], [facility] eCW1 ([facility]) ID Date Data Source GROUP B STREP CULTURE 07/19/2020 11:16:23 AM EDT eCW1 (Counts include 234 beds at the [facility]) Name Value Range Interpretation Code Description Data Gabby rce(s) Supporting Document(s) GROUP B STREP CULTURE eCW1 ([facility]) ID Date Data Source Glucose Challenge Test 1 Hour 07/04/2020 10:36:37 AM EDT eCW 1 ([facility]) Name Value Range Interpretation Code Description Data Gabby rce(s) Supporting Document(s) 97 GLUCOSE CHALLENGE TEST 1 HOUR eCW1 ([facility]) ID Date Data Source Type and Screen (D Rh Antibody Screen) 07/04/2020 10:36:31 A M EDT eCW1 ([facility]) Name Value Range Interpretation Code Description Data Gabby rce(s) Supporting Document(s) NEGATIVE AB SCREEN (INDIRECT COOMB S)VIS eCW1 ([facility]) A POSITIVE BLOOD TYPE eCW1 ([facility]) ID Date Data Source CBC - Complete Blood Count 07/04/2020 10:36:25 AM EDT eCW1 ( [facility]) Name Value Range Interpretation Code Description Data Gabby rce(s) Supporting Document(s) 13.0 HEMOGLOBIN eCW1 ([facility]) 12.2 WHITE BLOOD COUNT eCW1 ([facility]) 4.21 RED BLOOD COUNT eCW1 ([facility]) 95.2 MEAN CORPUSCULAR VOLUME eCW1 ( [facility]) 40.1 HEMATOCRIT eCW1 ([facility]) 30.9 MEAN CORPUSCULAR HEMOGLOBIN eC W1 ([facility]) 32.4 MEAN CORPUSCULAR HGB CONC eCW1 ([facility]) 13.2 RED CELL DISTRIBUTION WIDTH eC W1 ([facility]) 265 PLATELET COUNT, AUTOMATED eCW1 ([facility]) Procedure Social History Code Duration Value Status Description Data Source(s ) Smoking 08/05/2021 12:00:00 AM EST Former Smoker completed Former Smoker eCW1 ([facility]) Smoking 04/23/2021 12:00:00 AM EDT Current some day smoker com pleted Current some day smoker eCW1 ([facility]) Smoking 04/17/2021 12:00:00 AM EDT Current some day smoker com pleted Current some day smoker eCW1 ([facility]) Smoking 04/15/2021 12:00:00 AM EDT Current some day smoker com pleted Current some day smoker eCW1 ([facility]) Smoking 04/08/2021 12:00:00 AM EDT Current some day smoker com pleted Current some day smoker eCW1 ([facility]) Smoking 04/03/2021 12:00:00 AM EDT Current some day smoker com pleted Current some day smoker eCW1 ([facility]) Smoking 03/05/2021 12:00:00 AM EDT Current some day smoker com pleted Current some day smoker eCW1 ([facility]) Smoking 03/05/2021 12:00:00 AM EDT Current some day smoker com pleted Current some day smoker eCW1 ([facility]) Smoking 02/28/2021 12:00:00 AM EDT Current some day smoker com pleted Current some day smoker eCW1 ([facility]) Smoking 02/28/2021 12:00:00 AM EDT Current some day smoker com pleted Current some day smoker eCW1 ([facility]) Smoking 02/04/2021 12:00:00 AM EDT Current some day smoker com pleted Current some day smoker eCW1 ([facility]) Smoking 11/21/2020 12:00:00 AM EST Current some day smoker com pleted Current some day smoker eCW1 ([facility]) Smoking 10/02/2020 12:00:00 AM EST Former Smoker completed Former Smoker eCW1 ([facility]) Smoking 10/02/2020 12:00:00 AM EST Former Smoker completed Former Smoker eCW1 ([facility]) Smoking 08/08/2020 12:00:00 AM EST Former Smoker completed Former Smoker eCW1 ([facility]) Smoking 08/08/2020 12:00:00 AM EST Former Smoker completed Former Smoker eCW1 ([facility]) Smoking 08/08/2020 12:00:00 AM EST Former Smoker completed Former Smoker eCW1 ([facility]) Smoking 08/08/2020 12:00:00 AM EST Former Smoker completed Former Smoker eCW1 ([facility]) Smoking 08/08/2020 12:00:00 AM EST Former Smoker completed Former Smoker eCW1 ([facility]) Smoking 08/06/2020 12:00:00 AM EST Former Smoker completed Former Smoker eCW1 ([facility]) Smoking 07/22/2020 12:00:00 AM EDT Former Smoker completed Former Smoker eCW1 ([facility]) Vital Signs ID Date Data Source UNK Name Value Range Interpretation Code Description Data Source(s) Body weight 226.6 [lb_av] 226.6 [lb_av] eCW1 ([facility]) Body height 64 [in_i] 64 [in_i] eCW1 ([facility]) Body mass index (BMI) [Ratio] 38.89 kg/m2 38.89 kg/m2 eCW1 ([facility]) Systolic blood pressure 122 mm[Hg] 122 mm[Hg] e CW1 ([facility]) Diastolic blood pressure 72 mm[Hg] 72 mm[Hg] eCW1 ([facility]) Body height 162.1536 cm Normal (applies to non-numeric res ults) 162.1536 cm [facility] Diastolic blood pressure 78 mm[Hg] Normal (applies to non-numeric results) 78 mm[Hg] [facility] Respiratory rate 18 min Normal (applies to non-numeric results) 18 min [facility] Body temperature 37.0 [place] Normal (applies to non-numeric results) 37.0 [place] [facility] Systolic blood pressure 116 mm[Hg] Normal (applies t o non-numeric results) 116 mm[Hg] [facility] Heart rate 85 min Normal (applies to non-numeric resul ts) 85 min [facility] Deprecated Oxygen saturation in Capillary blood by Oximetry 98 % Normal (applies to non-numeric results) 98 % [facility] Body mass index (BMI) [Ratio] 35.53 kg/m2 No rmal (applies to non-numeric results) 35.53 kg/m2 [facility] Body weight Measured 93.894 kg Normal (applies to n on-numeric results) 93.894 kg [facility] Diastolic blood pressure 74 mm[Hg] 74 mm[Hg] eCW1 ([facility]) Body weight 206.4 [lb_av] 206.4 [lb_av] eCW1 ([facility]) Body weight 93.62 kg 93.62 kg W1 ([facility]) Body height 64 [in_i] 64 [in_i] eCW1 ([facility]) Body mass index (BMI) [Ratio] 35.428 kg/m2 35.4 28 kg/m2 [facility] ([facility]) Systolic blood pressure 114 mm[Hg] 114 mm[Hg] e CW1 ([facility]) Body weight 206 [lb_av] 206 [lb_av] eCW1 (Counts include 234 beds at the [facility]) Body weight 93.44 kg 93.44 kg eCW1 ([facility]) Body height 64 [in_i] 64 [in_i] eCW1 ([facility]) Body mass index (BMI) [Ratio] 35.36 kg/m2 35.36 kg/m2 eCW1 ([facility]) Systolic blood pressure 118 mm[Hg] 118 mm[Hg] e CW1 ([facility]) Diastolic blood pressure 70 mm[Hg] 70 mm[Hg] eCW1 ([facility]) Body weight 204 [lb_av] 204 [lb_av] eCW1 (Counts include 234 beds at the [facility]) Body height 64 [in_i] 64 [in_i] eCW1 ([facility]) Body mass index (BMI) [Ratio] 35.017 kg/m2 35.0 17 kg/m2 eCW1 ([facility]) Systolic blood pressure 120 mm[Hg] 120 mm[Hg] e CW1 ([facility]) Diastolic blood pressure 70 mm[Hg] 70 mm[Hg] eCW1 ([facility]) Body weight 208 [lb_av] 208 [lb_av] eCW1 (Counts include 234 beds at the [facility]) Body height 64 [in_i] 64 [in_i] eCW1 ([facility]) Body mass index (BMI) [Ratio] 35.7 kg/m2 35.7 k g/m2 eCW1 ([facility]) Systolic blood pressure 122 mm[Hg] 122 mm[Hg] e CW1 ([facility]) Diastolic blood pressure 58 mm[Hg] 58 mm[Hg] eCW1 ([facility]) Body weight 209.2 [lb_av] 209.2 [lb_av] eCW1 ([facility]) Body height 64 [in_i] 64 [in_i] eCW1 ([facility]) Body mass index (BMI) [Ratio] 35.909 kg/m2 35.9 09 kg/m2 eCW1 ([facility]) Systolic blood pressure 112 mm[Hg] 112 mm[Hg] e CW1 ([facility]) Diastolic blood pressure 74 mm[Hg] 74 mm[Hg] eCW1 ([facility]) Diastolic blood pressure 72 mm[Hg] 72 mm[Hg] eCW1 ([facility]) Body weight 212 [lb_av] 212 [lb_av] eCW1 (Counts include 234 beds at the [facility]) Body height 64 [in_i] 64 [in_i] eCW1 ([facility]) Body mass index (BMI) [Ratio] 36.39 kg/m2 36.39 kg/m2 eCW1 ([facility]) Heart rate 88 /min 88 /min eCW1 ([facility]) Respiratory rate 18 /min 18 /min eCW1 ([facility]) Body temperature 98.6 [degF] 98.6 [degF] eCW1 ( [facility]) Systolic blood pressure 110 mm[Hg] 110 mm[Hg] e CW1 ([facility]) Body weight 215.8 [lb_av] 215.8 [lb_av] eCW1 ([facility]) Body height [in_i] eCW1 ([facility]) Body mass index (BMI) [Ratio] 37.04 kg/m2 37.04 kg/m2 eCW1 ([facility]) Systolic blood pressure 120 mm[Hg] 120 mm[Hg] e CW1 ([facility]) Diastolic blood pressure 70 mm[Hg] 70 mm[Hg] eCW1 ([facility]) Body weight 224 [lb_av] 224 [lb_av] eCW1 (Counts include 234 beds at the [facility]) Body height [in_i] eCW1 ([facility]) Diastolic blood pressure 72 mm[Hg] 72 mm[Hg] eCW1 ([facility]) Body mass index (BMI) [Ratio] 38.45 kg/m2 38.45 kg/m2 eCW1 ([facility]) Systolic blood pressure 124 mm[Hg] 124 mm[Hg] e CW1 ([facility]) Body weight 229.8 [lb_av] 229.8 [lb_av] eCW1 ([facility]) Body weight 104.24 kg 104.24 kg eCW1 ([facility]) Body height [in_i] eCW1 ([facility]) Body mass index (BMI) [Ratio] 39.44 kg/m2 39.44 kg/m2 eCW1 ([facility]) Systolic blood pressure 110 mm[Hg] 110 mm[Hg] e CW1 ([facility]) Diastolic blood pressure 72 mm[Hg] 72 mm[Hg] eCW1 ([facility]) Body weight 251 [lb_av] 251 [lb_av] eCW1 (Counts include 234 beds at the [facility]) Body height [in_i] eCW1 ([facility]) Body mass index (BMI) [Ratio] 43.084 kg/m2 43.0 84 kg/m2 eCW1 ([facility]) Systolic blood pressure 122 mm[Hg] 122 mm[Hg] e CW1 ([facility]) Diastolic blood pressure 72 mm[Hg] 72 mm[Hg] eCW1 ([facility]) Body weight 257.0 [lb_av] 257.0 [lb_av] eCW1 ([facility]) Body height [in_i] eCW1 ([facility]) Body mass index (BMI) [Ratio] 44.114 kg/m2 44.1 14 kg/m2 eCW1 ([facility]) Systolic blood pressure 128 mm[Hg] 128 mm[Hg] e CW1 ([facility]) Diastolic blood pressure 74 mm[Hg] 74 mm[Hg] eCW1 ([facility]) Body weight 257 [lb_av] 257 [lb_av] eCW1 (Counts include 234 beds at the [facility]) Body height [in_i] eCW1 ([facility]) Body mass index (BMI) [Ratio] 44.114 kg/m2 44.1 14 kg/m2 eCW1 ([facility]) Systolic blood pressure 134 mm[Hg] 134 mm[Hg] e CW1 ([facility]) Diastolic blood pressure 78 mm[Hg] 78 mm[Hg] eCW1 ([facility]) Body weight 253 [lb_av] 253 [lb_av] eCW1 (Counts include 234 beds at the [facility]) Body height [in_i] eCW1 ([facility]) Body mass index (BMI) [Ratio] 43.427 kg/m2 43.4 27 kg/m2 eCW1 ([facility]) Systolic blood pressure 130 mm[Hg] 130 mm[Hg] e CW1 ([facility]) Diastolic blood pressure 76 mm[Hg] 76 mm[Hg] eCW1 ([facility]) Body weight 245 [lb_av] 245 [lb_av] eCW1 (Counts include 234 beds at the [facility]) Body height [in_i] eCW1 ([facility]) Body mass index (BMI) [Ratio] 42.054 kg/m2 42.0 54 kg/m2 eCW1 ([facility]) Systolic blood pressure 132 mm[Hg] 132 mm[Hg] e CW1 ([facility]) Diastolic blood pressure 76 mm[Hg] 76 mm[Hg] eCW1 ([facility]) Body weight 244.4 [lb_av] 244.4 [lb_av] eCW1 ([facility]) Body height [in_i] eCW1 ([facility]) Body mass index (BMI) [Ratio] 41.951 kg/m2 41.9 51 kg/m2 eCW1 ([facility]) Systolic blood pressure 130 mm[Hg] 130 mm[Hg] e CW1 ([facility]) Diastolic blood pressure 74 mm[Hg] 74 mm[Hg] eCW1 ([facility]) Patient Treatment Plan of Care Planned Activity Planned Date Details Description Data Source (s) Sertraline 25 MG Oral Tablet [Zoloft] 08/05/2021 12:00:00 AM EST eCW1 ([facility]) Minoo 0.35 MG 08/05/2021 12:00:00 AM EST eCW1 ([facility]) 168 HR Ethinyl Estradiol 0.69394 MG/HR / norelgestromin 0.44794 MG/HR Transdermal Patch [Xulane] 11/21/2020 12:00:00 AM EST eCW1 ([facility]) Escitalopram 10 MG Oral Tablet [Lexapro] 10/02/2020 12:00:00 AM EST eCW1 ([facility]) Acetaminophen 325 MG / Oxycodone Hydrochloride 5 MG Or al Tablet [Percocet] 10/02/2020 12:00:00 AM EST eCW1 ([facility]) Escitalopram 10 MG Oral Tablet [Lexapro] 10/02/2020 12:00:00 AM EST eCW1 ([facility]) Acetaminophen 325 MG / Oxycodone Hydrochloride 5 MG Or al Tablet [Percocet] 10/02/2020 12:00:00 AM EST eCW1 ([facility])
[2021-08-17] MEDS ORDERED: SERT25TA21 (14:28)
[2021-08-17] MEDS ORDERED: KETOROLAC 30 MG/ML 1ML VIAL IV ONE (15:25)
--- NOTE | 2021-08-17 15:56 | REP ---
INDICATION: pain and swelling to thigh, discoloration to leg, r/o dvt COMPARISON: None. TECHNIQUE: Agustin scale and color Doppler evaluation using linear high frequency transducer. FINDINGS: Ultrasound examination of the left lower extremity demonstrates complete occlusive thrombus from the common femoral vein through the popliteal vein as well as involving multiple calf veins. Associated subcutaneous swelling noted. Contralateral common femoral vein is patent. 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 <Electronically signed by Fausto Hernandez > 08/17/21 [id number]
--- OUTSIDE RECORDS SUMMARY | 2021-08-17 16:02 | CCD ---
Author Author [facility] Organization [facility] Address Unknown Phone Unavailable Care Team Providers Care Replenishment Merchandising Associate Name Role Phone Hero Elias Unavailable Unavailable [...] is protected by Article 27-F of the [facility] Public Health law. If you continue you may have access to information: Regarding HIV / AIDS; Provided by facilities licensed or operated by the [facility] Office of Mental Health; or Provided by the [facility] Office for People With Developmental Disabilities. If such information is present, then the following [facility] mandated warning applies: This information has been [...] law may result in a fine or fci sentence or both. A general authorization for the release of medical or other information is NOT sufficient authorization for further disc losure. Allergies and Adverse Reactions Type Description Substance Reaction Status Data Source(s ) Propensity to adverse reactions NO KNOWN ALLERGIES NO KNOWN ALLERGIES [facility] Family History Family Member Name Family Member Gender Family Member Status Date o f Status Description Data Source(s) Unknown Unknown Problem MEDENT ([facility]) Unknown Unknown Problem MEDENT ([facility]) Unknown Unknown Problem MEDENT ([facility]) Unknown Unknown Problem MEDENT ([facility]) Encounters Encounter Providers Location Date Indications Data Source(s ) ( ESTOB) enter Est OB [address] [place] [address] 08/05/2021 12:00:00 AM EST eCW1 ([facility]) Outpatient Attender: Carisa Anthony CNM 06/27/2021 12:00:0 0 AM EDT [facility] Outpatient Attender: Clau EliasReferrer: Clau Elias 05/07/2021 12:00:00 AM EDT - 05/07/2021 11:59:00 PM EDT Maternal care for other known or suspect ed poor growth, first trimester, not applicable or unspecified [facility] Maternal care for other known or suspect ed poor growth, first trimester, not applicable or unspecified Unknown [address] [facility] [address] 04/22/2021 12:00:00 AM EDT eCW1 ([facility]) Inpatient Attender: CLAU BLACKMAN MD 04/21/2021 03:10: 00 PM EDT [facility] Inpatient Attender: FRANCHESCA RANDLE MD 04/21/2021 02:55:05 PM EDT [facility] Inpatient Attender: CLAU BLACKMAN MDAdmitter: CLAU GUPTA MD 04/21/2021 11:59:00 AM EDT - 06/22/2021 11:22:00 AM EDT PREMATURE RUPTURE OF MEMBRANES [facility] PREMATURE RUPTURE OF MEMBRANES Patient discharged. ([facility]) [facility] Complicated OB [address] [place] [address] 04/17/2021 12:00:00 AM EDT eCW1 ([facility]) (WC COB) [facility] Complicated OB [address] [place] [address] 04/11/2021 12:00:00 AM EDT eCW1 ([facility]) ( ESTOB) enter Est OB [address] [place] [address] 04/07/2021 12:00:00 AM EDT eCW1 ([facility]) ( ESTOB) enter Est OB [address] [place] [address] 04/03/2021 12:00:00 AM EDT eCW1 ([facility]) [place] [address] [facility] [address] 04/01/2021 12:00:00 AM EDT eCW1 ([facility]) (WC ESTOB) WCenter Est OB [address] [place] [address] 03/05/2021 12:00:00 AM EDT eCW1 ([facility]) [place] [address] [facility] [address] 02/28/2021 12:00:00 AM EDT eCW1 ([facility]) [place] [address] [facility] [address] 02/28/2021 12:00:00 AM EDT eCW1 ([facility]) (WC ESTOB) WCenter Est OB [address] [place] [address] 02/04/2021 12:00:00 AM EDT eCW1 ([facility]) Office Visit, Est Pt., Level 3 FC [address] [place] [address] 11/21/2020 12:00:00 AM EST eCW1 [facility]) (WC ESTOB) WCenter Est OB [address] [place] [address] 10/02/2020 12:00:00 AM EST eCW1 ([facility]) (WC ESTOB) WCenter Est OB [address] [place] [address] 08/14/2020 12:00:00 AM EST eCW1 ([facility]) (WC ESTOB) WCenter Est OB [address] [place] [address] 08/07/2020 12:00:00 AM EST eCW1 ([facility]) (WC ESTOB) WCenter Est OB [address] [place] [address] 07/30/2020 12:00:00 AM EST eCW1 ([facility]) (WC ESTOB) WCenter Est OB [address] [place] [address] 07/23/2020 12:00:00 AM EDT eCW1 ([facility]) ( ESTOB) WCenter Est OB [address] [place] [address] 07/17/2020 12:00:00 AM EDT eCW1 ([facility]) ( ESTOB) WCenter Est OB [address] [place] [address] 07/09/2020 12:00:00 AM EDT eCW1 ([facility]) Unknown [address] [facility] [address] 07/24/2019 12:00:00 AM EDT eCW1 ([facility]) Medications Medication Brand Name Start Date Product Form Dose Route Admi nistrative Instructions Pharmacy Instructions Status Indications Reaction Description Data Source(s) Sertraline 25 MG Oral Tablet [Zoloft] Zoloft 25 MG Zoloft 25 MG 08/05/2021 12:00:00 AM EST 1.0 {tablet} active eCW1 ([facility]) 25 mg 08/05/2021 12:00:00 AM EST tablet [...] AM EST 1.0 { tablet} active eCW1 ([facility]) 50 mg 06/27/2021 12:00:00 AM EDT tablet 30 TAKE ONE TABLET BY MOUTH EVERY DAY TAKE ONE TABLET BY MOUTH EVERY DAY SOLD: 06/27/2021 [facility] Sertraline 50 MG Oral Tablet [Zoloft] Zoloft 50 MG Zoloft 50 MG 06/27/2021 12:00:00 AM EDT 1.0 {tablet} active eCW1 ([facility]) 50 mg 06/27/2021 12:00:00 AM EDT tablet [...] [facility] 168 HR Ethinyl Estradiol 0.14725 MG/HR / norelgestromin 0.62880 MG/HR Transdermal Patch [Xulane] Xulane 150-35 MCG/24HR Xulane 150-35 MCG/24HR 11/21/2020 12:00:00 AM EST suspended Xulane 150-35 MCG/24HR eCW1 ([facility]) 168 HR Ethinyl Estradiol 0.57891 MG/HR / norelgestromin 0.80667 MG/HR Transdermal Patch [Xulane] Xulane 150-35 MCG/24HR Xulane 150-35 MCG/24HR 11/21/2020 12:00:00 AM EST suspended Xulane 150-35 MCG/24HR eCW1 ([facility]) 168 HR Ethinyl Estradiol 0.87131 MG/HR / norelgestromin 0.84681 MG/HR Transdermal Patch [Xulane] Xulane 150-35 MCG/24HR Xulane 150-35 MCG/24HR 11/21/2020 12:00:00 AM EST suspended Xulane 150-35 MCG/24HR eCW1 ([facility]) 168 HR Ethinyl Estradiol 0.46308 MG/HR / norelgestromin 0.35306 MG/HR Transdermal Patch [Xulane] Xulane 150-35 MCG/24HR Xulane 150-35 MCG/24HR 11/21/2020 12:00:00 AM EST suspended Xulane 150-35 MCG/24HR eCW1 ([facility]) 168 HR Ethinyl Estradiol 0.86639 MG/HR / norelgestromin 0.56947 MG/HR Transdermal Patch [Xulane] Xulane 150-35 MCG/24HR Xulane 150-35 MCG/24HR 11/21/2020 12:00:00 AM EST active Xulane 150-35 MCG/24HR eCW1 ([facility]) 168 HR Ethinyl Estradiol 0.99448 MG/HR / norelgestromin 0.33758 MG/HR Transdermal Patch [Xulane] Xulane 150-35 MCG/24HR Xulane 150-35 MCG/24HR 11/21/2020 12:00:00 AM EST suspended Xulane 150-35 MCG/24HR eCW1 ([facility]) 168 HR Ethinyl Estradiol 0.70114 MG/HR / norelgestromin 0.13938 MG/HR Transdermal Patch [Xulane] Xulane 150-35 MCG/24HR Xulane 150-35 MCG/24HR 11/21/2020 12:00:00 AM EST suspended Xulane 150-35 MCG/24HR eCW1 ([facility]) 168 HR Ethinyl Estradiol 0.60753 MG/HR / norelgestromin 0.77195 MG/HR Transdermal Patch [Xulane] Xulane 150-35 MCG/24HR Xulane 150-35 MCG/24HR 11/21/2020 12:00:00 AM EST suspended Xulane 150-35 MCG/24HR eCW1 ([facility]) 168 HR Ethinyl Estradiol 0.73080 MG/HR / norelgestromin 0.48764 MG/HR Transdermal Patch [Xulane] Xulane 150-35 MCG/24HR Xulane 150-35 MCG/24HR 11/21/2020 12:00:00 AM EST suspended Xulane 150-35 MCG/24HR eCW1 ([facility]) 168 HR Ethinyl Estradiol 0.12142 MG/HR / norelgestromin 0.90159 MG/HR Transdermal Patch [Xulane] Xulane 150-35 MCG/24HR Xulane 150-35 MCG/24HR 11/21/2020 12:00:00 AM EST suspended Xulane 150-35 MCG/24HR eCW1 ([facility]) 168 HR Ethinyl Estradiol 0.61218 MG/HR / norelgestromin 0.63094 MG/HR Transdermal Patch [Xulane] Xulane 150-35 MCG/24HR Xulane 150-35 MCG/24HR 11/21/2020 12:00:00 AM EST suspended Xulane 150-35 MCG/24HR eCW1 ([facility]) Escitalopram 10 MG Oral Tablet ESCITALOPRAM OXALATE 10/04/2020 1 2:00:00 AM EST tablet 30 TAKE ONE TABLET BY MOUTH DAILY TAKE ONE T ABLET BY MOUTH DAILY SOLD: 10/09/2020 [facility] Escitalopram 10 MG Oral Tablet [Lexapro] Lexapro 10 MG Lexap ro 10 MG 10/02/2020 12:00:00 AM EST 1.0 {tablet} suspended Lexapro 10 MG eCW1 ([facility]) Escitalopram 10 MG Oral Tablet [Lexapro] Lexapro 10 MG Lexap ro 10 MG 10/02/2020 12:00:00 AM EST 1.0 {tablet} suspended Lexapro 10 MG eCW1 ([facility]) Escitalopram 10 MG Oral Tablet [Lexapro] Lexapro 10 MG Lexap ro 10 MG 10/02/2020 12:00:00 AM EST 1.0 {tablet} suspended Lexapro 10 MG eCW1 ([facility]) Escitalopram 10 MG Oral Tablet [Lexapro] Lexapro 10 MG Lexap ro 10 MG 10/02/2020 12:00:00 AM EST 1.0 {tablet} suspended Lexapro 10 MG eCW1 ([facility]) Acetaminophen 325 MG / Oxycodone Hydroch loride 5 MG Oral Tablet [Percocet] Percocet 5-325 MG Percocet 5-325 MG 10/02/2020 12:00:00 AM EST 1 .0 {tablet_as_needed} suspended Percocet 5- 325 MG eCW1 ([facility]) Acetaminophen 325 MG / Oxycodone Hydroch loride 5 MG Oral Tablet [Percocet] Percocet 5-325 MG Percocet 5-325 MG 10/02/2020 12:00:00 AM EST 1 .0 {tablet_as_needed} active Percocet 5-32 5 MG eCW1 ([facility]) 5-325 mg 10/02/2020 12:00:00 AM EST tablet [...] {tablet_as_needed} suspended Percocet 5- 325 MG eCW1 ([facility]) Acetaminophen 325 MG / Oxycodone Hydroch loride 5 MG Oral Tablet [Percocet] Percocet 5-325 MG Percocet 5-325 MG 10/02/2020 12:00:00 AM EST 1 .0 {tablet_as_needed} suspended Percocet 5- 325 MG eCW1 ([facility]) Acetaminophen 325 MG / Oxycodone Hydroch loride 5 MG Oral Tablet [Percocet] Percocet 5-325 MG Percocet 5-325 MG 10/02/2020 12:00:00 AM EST 1 .0 {tablet_as_needed} suspended Percocet 5- 325 MG eCW1 ([facility]) Escitalopram 10 MG Oral Tablet [Lexapro] Lexapro 10 MG Lexap ro 10 MG 10/02/2020 12:00:00 AM EST 1.0 {tablet} suspended Lexapro 10 MG eCW1 ([facility]) Acetaminophen 325 MG / Oxycodone Hydroch loride 5 MG Oral Tablet [Percocet] Percocet 5-325 MG Percocet 5-325 MG 10/02/2020 12:00:00 AM EST 1 .0 {tablet_as_needed} suspended Percocet 5- 325 MG eCW1 ([facility]) Escitalopram 10 MG Oral Tablet [Lexapro] Lexapro 10 MG Lexap ro 10 MG 10/02/2020 12:00:00 AM EST 1.0 {tablet} active Le xapro 10 MG eCW1 ([facility]) Acetaminophen 325 MG / Oxycodone Hydroch loride 5 MG Oral Tablet [Percocet] Percocet 5-325 MG Percocet 5-325 MG 10/02/2020 12:00:00 AM EST 1 .0 {tablet_as_needed} suspended Percocet 5- 325 MG eCW1 ([facility]) Acetaminophen 325 MG / Oxycodone Hydroch loride 5 MG Oral Tablet [Percocet] Percocet 5-325 MG Percocet 5-325 MG 10/02/2020 12:00:00 AM EST 1 .0 {tablet_as_needed} active Percocet 5-32 5 MG eCW1 ([facility]) Escitalopram 10 MG Oral Tablet [Lexapro] Lexapro 10 MG Lexap ro 10 MG 10/02/2020 12:00:00 AM EST 1.0 {tablet} suspended Lexapro 10 MG eCW1 ([facility]) Acetaminophen 325 MG / Oxycodone Hydroch loride 5 MG Oral Tablet [Percocet] Percocet 5-325 MG Percocet 5-325 MG 10/02/2020 12:00:00 AM EST 1 .0 {tablet_as_needed} suspended Percocet 5- 325 MG eCW1 ([facility]) Acetaminophen 325 MG / Oxycodone Hydroch loride 5 MG Oral Tablet [Percocet] Percocet 5-325 MG Percocet 5-325 MG 10/02/2020 12:00:00 AM EST 1 .0 {tablet_as_needed} suspended Percocet 5- 325 MG eCW1 ([facility]) Acetaminophen 325 MG / Oxycodone Hydroch loride 5 MG Oral Tablet [Percocet] Percocet 5-325 MG Percocet 5-325 MG 10/02/2020 12:00:00 AM EST 1 .0 {tablet_as_needed} active Percocet 5-32 5 MG eCW1 ([facility]) Escitalopram 10 MG Oral Tablet [Lexapro] Lexapro 10 MG Lexap ro 10 MG 10/02/2020 12:00:00 AM EST 1.0 {tablet} suspended Lexapro 10 MG eCW1 ([facility]) Escitalopram 10 MG Oral Tablet [Lexapro] Lexapro 10 MG Lexap ro 10 MG 10/02/2020 12:00:00 AM EST 1.0 {tablet} active Le xapro 10 MG eCW1 ([facility]) Escitalopram 10 MG Oral Tablet [Lexapro] Lexapro 10 MG Lexap ro 10 MG 10/02/2020 12:00:00 AM EST 1.0 {tablet} active Le xapro 10 MG eCW1 ([facility]) Acetaminophen 325 MG / Oxycodone Hydroch loride 5 MG Oral Tablet [Percocet] Percocet 5-325 MG Percocet 5-325 MG 10/02/2020 12:00:00 AM EST 1 .0 {tablet_as_needed} suspended Percocet 5- 325 MG eCW1 ([facility]) Escitalopram 10 MG Oral Tablet [Lexapro] Lexapro 10 MG Lexap ro 10 MG 10/02/2020 12:00:00 AM EST 1.0 {tablet} suspended Lexapro 10 MG eCW1 ([facility]) Acetaminophen 325 MG / Oxycodone Hydroch loride 5 MG Oral Tablet [Percocet] Percocet 5-325 MG Percocet 5-325 MG 10/02/2020 12:00:00 AM EST 1 .0 {tablet_as_needed} suspended Percocet 5- 325 MG eCW1 ([facility]) Escitalopram 10 MG Oral Tablet [Lexapro] Lexapro 10 MG Lexap ro 10 MG 10/02/2020 12:00:00 AM EST 1.0 {tablet} suspended Lexapro 10 MG eCW1 ([facility]) Escitalopram 10 MG Oral Tablet [Lexapro] Lexapro 10 MG Lexap ro 10 MG 10/02/2020 12:00:00 AM EST 1.0 {tablet} suspended Lexapro 10 MG eCW1 ([facility]) 800 mg 08/18/2020 12:00:00 AM EST tablet 30 TAKE ONE TABLET BY MOUTH EVERY 8 HOURS TAKE ONE TABLET BY MOUTH EVERY 8 HOURS SOLD: 08/19/2020 [facility] Insurance Providers Payer name Policy type / Coverage type Policy ID Covered democrat ID Covered democrat's relationship to [place] Policy [place] Plan Information MEDICAID [id number] SP [id number] [facility] Medicaid [id number] Self [id number] [place]([facility]) Commercial [id number] Self [id number] [place]) Commercial [id number] Self [id number] [facility] COMMUNITY PLAN [facility] [id number] [facility] COMMUNITY PLAN [facility] [id number] [facility] Community Plan Commercial [id number] Self [id number] [facility] [id number] S [id number] [facility] [id number] Self [id number] [facility] I [id number] Self [id number] [facility] [id number] S [id number] [facility] Health Maintenance Organization ([facility]) [id number] Self [id number] [facility] [id number] S [id number] [facility] [id number] S [id number] [facility] Health Maintenance Organization (O) [id number] Self [id number] [facility] Health Maintenance Organization ([facility]) [id number] Self [id number] [facility] MEDICAID [id number] S [id number] [facility] Health Maintenance Organization ([facility]) [id number] Self [id number] [facility] Health Maintenance Organization ([facility]) [id number] Self [id number] [facility] [id number] S [id number] [facility] [id number] S [id number] [facility] Community Plan Commercial [id number] Self [facility](MCAID) O [id number] C [id number] [facility] COMMUNITY PLAN [facility] [id number] SP [id number] O BLUE [id number] SP [id number] MEDICAID GME [id number] S [id number] [facility] HEA [id number] S [id number] HEA [id number] [facility] COMMUNITY PLAN [facility] [id number] SP [id number] [facility](MCAID) O [id number] S [id number] [facility] [id number] S [id number] [facility] MEDICAID [id number] S [id number] ANSI-Medicaid [id number] ANSI-Medicaid [id number] [facility] Community Plan Commercial [id number] Self [id number] Problems, Conditions, and Diagnoses Code Display Name Description Problem Type Effective Dates Data Source(s) O36.5910 Maternal care for other know n or suspected poor growth, first trimester, not applicable or unspecified Maternal care for other known or suspected poor growth, first trimester, not applicable or unspecified Diagnosis 05/07/2021 05:38:00 PM EDT [facility] Z34.80 care Supervision of other normal P roblem 02/04/2021 12:00:00 AM EDT eCW1 ([facility]) F41.9 Anxiety Anxiety Problem 07/30/2020 12:00:00 AM ES T eCW1 ([facility]) E66.9 Obesity Obesity Problem 07/23/2020 12:00:00 AM ED T eCW1 ([facility]) O99.213 Obesity complicating , third tr imester Obesity complicating in third trimester Problem 07/17/2020 12:00:00 AM EDT eCW1 ([facility]) O99.213 Maternal obesity complicatin g , childbirth and the puerperium, antepartum Obesity affecting in third trimester Problem 07/09/2020 12:00:00 AM EDT eCW1 ([facility]) Z68.41 Body mass index 40+ - morbidly obese BMI 40.0-44.9, ad ult Problem 07/09/2020 12:00:00 AM EDT eCW1 ([facility]) Surgeries/Procedures Procedure Description Date Indications Data Source(s) MISC. KIT TESTING <td>MISC. KIT TESTING</td><t d>Routine</td><td>05/07/2021 5:51 PM EDT</td><td></td><td> </td> 05/07/2021 05:51:00 PM EDT [facility] Results ID Date Data Source [id number] 06/20/2021 09:32:22 AM EDT [facility] Name Value Range Interpretation Code Description Data Gabby rce(s) Supporting Document(s) WBC 15.3 10*3/uL (4.1-11.0) H [facility] RBC 3.32 10*6/uL (4.00-5.40) L [facility] HGB 10.4 g/dL (12.0-16.0) L [facility] HCT 31.0 % (36.0-47.0) L [facility] MCV 93.6 fL (80.0-95.0) [facility] MCH 31.3 pg (27.0-32.0) [facility] MCHC 33.4 g/dL (32.0-36.0) [facility] RDW 14.1 % (10.5-14.5) [facility] PLT 215 10*3/uL (150-450) [facility] MPV 8.0 fL (7.1-10.7) [facility] ID Date Data Source [id number] 06/19/2021 04:19:02 PM EDT [facility] Name Value Range Interpretation Code Description Data Gabby rce(s) Supporting Document(s) WBC 11.8 10*3/uL (4.1-11.0) H [facility] RBC 3.52 10*6/uL (4.00-5.40) L [facility] HGB 11.0 g/dL (12.0-16.0) L [facility] HCT 33.2 % (36.0-47.0) L [facility] MCV 94.3 fL (80.0-95.0) [facility] MCH 31.3 pg (27.0-32.0) [facility] MCHC 33.2 g/dL (32.0-36.0) [facility] RDW 13.9 % (10.5-14.5) [facility] PLT 207 10*3/uL (150-450) [facility] MPV 7.9 fL (7.1-10.7) [facility] NEUT % 85.2 % (35.0-75.0) H [facility] LYMPH % 9.3 % (16.0-52.0) L [facility] MONO % 4.9 % (0.0-8.0) [facility] EOS % 0.4 % (0.0-5.0) [facility] BASO % 0.2 % (0.0-4.0) [facility] NEUT # 10.0 10*3/uL (1.8-7.7) [facility] LYMPH # 1.1 10*3/uL (1.2-4.8) L [facility] MONO # 0.6 10*3/uL (0.0-0.8) [facility] Eosinophils [#/volume] in Blood by Automated count 0.0 10*3/uL (0.0-0 .5) [facility] BASO # 0.0 10*3/uL (0.0-0.2) [facility] ID Date Data Source [id number] 06/20/2021 03:54:37 PM EDT [facility] [place] [id number]# SURGICAL PATHOLOGY REPORTPatient Name:STEFFI FORTUNEOB:2000Received:06/19/2021ccession #:[id number](s) [...] than the true wet tissue weight. jmdqpa, rff/[facility]Reported: 06/20/2021 15:53Electronically Signed Out By Fausto Butler MD [facility] of [address] [address]Kcleiilfx component performed at [facility], Histopathology, [address] [place] [address], [phone].Reported at [facility], [address] [place] [address], [phone].This report may include immunohistochemical or in-situ hybridizationresults. Testing was developed and the performance characteristicsdetermined by [facility], as required byCLIA '88. The FDA has determined that approval for specific use is notnecessary for clinical use. The quality of Hematoxylin and Eosin stainsand as applicable, for all immunohistochemical and/or special stains,including positive and negative controls, were reviewed and consideredappropriate.ICD codes: O43.299GZI1 codes: A: 75425F Name Value Range Interpretation Code Description Data Gabby rce(s) Supporting Document(s) ID Date Data Source [id number] 06/20/2021 09:30:40 AM EDT [facility] SPEC EXP DATE 1PATI ENT ABO/Rh A POSITIVEANTIBODY SCREEN NEGATIVETESTING SITE PERFORMED AT [address] [place] [address] BANK COMMENT BLOOD TYPE CONFIRMED. Name Value Range Interpretation Code Description Data [facility] rce(s) Supporting Document(s) ID Date Data Source [id number] 06/18/2021 04:18:00 PM EDT [facility] [...] ratio. X2End of diagnostic report for accession: [id number] Interpreted: Feliciano Castellanos MDTranscribed: 06/18/2021 04:17 PMSigned: 06/18/2021 04:18 PM Feliciano Castellanos MD [facility] # [id number] BILL # [id number] Name Value Range Interpretation Code Description Data Gabby rce(s) Supporting Document(s) ID Date Data Source [id number] 06/18/2021 04:18:00 PM EDT [facility] [...] ratio. X2End of diagnostic report for accession: [id number] Interpreted: Feliciano Castellanos MDTranscribed: 06/18/2021 04:17 PMSigned: 06/18/2021 04:18 PM Feliciano Castellanos MD [facility] # [id number] BILL # [id number] Name Value Range Interpretation Code Description Data [place] [facility](s) Supporting Document(s) ID Date Data Source [id number] 06/16/2021 06:49:34 PM EDT [facility] Name Value Range Interpretation Code Description Data [place] campuse(s) Supporting Document(s) WBC 10.3 10*3/uL (4.1-11.0) [facility] RBC 4.01 10*6/uL (4.00-5.40) [facility] HGB 12.6 g/dL (12.0-16.0) [facility] HCT 38.1 % (36.0-47.0) [facility] MCV 94.9 fL (80.0-95.0) [facility] MCH 31.3 pg (27.0-32.0) [facility] MCHC 33.0 g/dL (32.0-36.0) [facility] RDW 14.2 % (10.5-14.5) [facility] PLT 183 10*3/uL (150-450) [facility] PLATELET COUNT VERIFIED BY TECH MPV 8.7 fL (7.1-10.7) [facility] ID Date Data Source [id number] 06/16/2021 02:12:00 PM EDT [facility] [...] on today's study. Professional interpretation performed at [facility] .End of diagnostic report for accession: [id number] Interpreted: Feliciano Estrada MDTranscribed: 06/16/2021 02:03 PMSigned: 06/16/2021 02:12 PM Josef Estrada MD [facility] ACC # [id number] BILL # [id number] Name Value Range Interpretation Code Description Data [facility] rce(s) Supporting Document(s) ID Date Data Source [id number] 06/16/2021 02:12:[address] [facility] DATE OF EXAM: 06/16/2021OBSTETRICAL SONO GRAM. ULTRASOUND [...] on today's study. Professional interpretation performed at [facility] .End of diagnostic report for accession: [id number] Interpreted: Feliciano Estrada MDTranscribed: 06/16/2021 02:03 PMSigned: 06/16/2021 02:12 PM Josef Estrada MD [facility] ACC # [id number] BILL # [id number] Name Value Range Interpretation Code Description Data Gabby rce(s) Supporting Document(s) ID Date Data Source [id number] 06/15/2021 07:42:24 AM EDT [facility] CANCHOLA SPEC EXP DATE 06/18/2021ATI ENT ABO/Rh A POSITIVEANTIBODY SCREEN NEGATIVETESTING SITE PERFORMED AT [address] [place] [address] BANK COMMENT BLOOD TYPE CONFIRMED. Name Value Range Interpretation Code Description Data Gabby rce(s) Supporting Document(s) ID Date Data Source [id number] 06/14/2021 01:18:53 PM EDT [facility] Name Value Range Interpretation Code Description Data Gabby rce(s) Supporting Document(s) HOLD TUBE PINK [facility] CANCHOLA ID Date Data Source [id number] 06/10/2021 01:05:46 PM EDT [facility] SPEC EXP DATE 06/13/2021ATI ENT ABO/Rh A POSITIVEANTIBODY SCREEN NEGATIVETESTING SITE PERFORMED AT [address] COMMENT BLOOD TYPE CONFIRMED. Name Value Range Interpretation Code Description Data Gabby rce(s) Supporting Document(s) ID Date Data Source [id number] 06/06/2021 07:34:07 PM EDT [facility] SPEC EXP DATE 06/09/2021ATI ENT ABO/Rh A POSITIVEANTIBODY SCREEN NEGATIVETESTING SITE PERFORMED AT [address] COMMENT BLOOD TYPE CONFIRMED. Name Value Range Interpretation Code Description Data Gabby rce(s) Supporting Document(s) ID Date Data Source [id number] 06/04/2021 08:48:16 AM EDT [facility] Name Value Range Interpretation Code Description Data Gabby rce(s) Supporting Document(s) MAGNESIUM 5.2 mg/dL (1.7-2.4) H [facility] RESULT(S) CALLED TO AND READ BACK BYEWA MONTES ON 8S ON 06/04 AT 0847 [place] [id number] ID Date Data Source [id number] 06/04/2021 06:39:33 AM EDT [facility] Name Value Range Interpretation Code Description Data Gabby rce(s) Supporting Document(s) MAGNESIUM 10.0 mg/dL (1.7-2.4) H [facility] RESULT(S) CALLED TO AND READ BACK BYMARLENY Worrell ON 8S ON 06/04 AT 0638 [place] [id number] ID Date Data Source [id number] 06/03/2021 06:38:00 PM EDT [facility] DATE OF EXAM: 06/03/2021XAM:US Uterus [...] placental abruption. Professional int erpretation performed at [facility] .End of diagnostic report for accession: [id number] Interpreted: Feliciano Castellanos MDTranscribed: 06/03/2021 06:37 PMSigned: 06/03/2021 06:38 PM Feliciano Castellanos MD [facility] # [id number] BILL # [id number] Name Value Range Interpretation Code Description Data Gabby rce(s) Supporting Document(s) ID Date Data Source [id number] 06/05/2021 08:39:54 AM EDT [facility] SPECIMEN DESCRIPTION URINE, COLLE CTION METHOD NOT SPECIFIEDCULTURE RESULTS MIXED UROGENITAL ELIAS; PLEASE SUBMIT A NEW SPEC IMEN IF CLINICALLY INDICATED.REPORT STATUS FINAL 06/05/2021 Name Value Range Interpretation Code Description Data Gabby rce(s) Supporting Document(s) ID Date Data Source [id number] 06/03/2021 04:57:43 PM EDT [facility] Name Value Range Interpretation Code Description Data Gabby rce(s) Supporting Document(s) URINE WBC (0-5) [facility] URINE RBC (0-2) [facility] EPITHELIAL CELLS 1+ [HPF] [facility] ID Date Data Source [id number] 06/03/2021 04:30:34 PM EDT [facility] Name Value Range Interpretation Code Description Data Gabby rce(s) Supporting Document(s) COLOR [facility] APPEARANCE [facility] SPEC GRAV URINE 1.005 (1.003-1.030) [facility] PH URINE 7.5 (5.0-7.5) [facility] LEUK ESTERASE (NEG) A [facility] NITRITE URINE (NEG) [facility] PROTEIN URINE (NEG) A [facility] GLUCOSE URINE (NEG) A [facility] KETONE URINE (NEG) [facility] [place] SALMON UROBILINOGEN 0.2 mg/dL (0-1.0) [facility] [place] BILIRUBIN URINE (NEG) [facility] BLOOD/HGB URINE 3+ (NEG) A [facility] ID Date Data Source [id number] 06/03/2021 11:08:59 AM EDT [facility] Name Value Range Interpretation Code Description Data Gabby rce(s) Supporting Document(s) WBC 8.0 10*3/uL (4.1-11.0) [facility] [place] RBC 3.95 10*6/uL (4.00-5.40) L [facility] HGB 12.3 g/dL (12.0-16.0) [facility] HCT 36.5 % (36.0-47.0) [facility] MCV 92.2 fL (80.0-95.0) [facility] MCH 31.0 pg (27.0-32.0) [facility] MCHC 33.7 g/dL (32.0-36.0) [facility] RDW 13.7 % (10.5-14.5) [facility] PLT 251 10*3/uL (150-450) [facility] MPV 8.3 fL (7.1-10.7) [facility] ID Date Data Source [id number] 06/02/2021 06:03:55 PM EDT [facility] SPECIMEN DESCRIPTION VAGINAL/RECT ALCULTURE RESULTS NEGATIVE: BETA HEMOLYTIC STREPTOCOCCI GROUP B B Y PCRREPORT STATUS FINAL 06/02/2021 Name Value Range Interpretation Code Description Data Gabby rce(s) Supporting Document(s) ID Date Data Source [id number] 06/02/2021 01:03:13 PM EDT [facility] SPEC EXP DATE 06/05/2021ATI ENT ABO/Rh A POSITIVEANTIBODY SCREEN NEGATIVETESTING SITE PERFORMED AT [address] [place], [place] [address]BLOOD BANK COMMENT BLOOD TYPE CONFIRMED. Name Value Range Interpretation Code Description Data Gabby rce(s) Supporting Document(s) ID Date Data Source [id number] 06/02/2021 12:32:[address] [facility] DATE OF EXAM: 1EXAM: US Pregnan t [...] near the fundus. Professional interpretation performed at [facility] .End of diagnostic report for accession: [id number] Interpreted: Betzy Patricio MDTranscribed: 06/02/2021 12:18 PMSigned: 06/02/2021 12:32 PM Betzy Patricio MD [facility] # [id number] BILL # [id number] Name Value Range Interpretation Code Description Data Gabby rce(s) Supporting Document(s) ID Date Data Source [id number] 06/02/2021 12:32:00 PM EDT [facility] Brittanytiffani philip [...] near the fundus. Professional interpretation performed at [facility] .End of diagnostic report for accession: [id number] Interpreted: Betzy Patricio MDTranscribed: 06/02/2021 12:18 PMSigned: 06/02/2021 12:32 PM Betzy Patricio MD [facility] # [id number] BILL # [id number] Name Value Range Interpretation Code Description Data [facility] Supporting Document(s) ID Date Data Source [id number] 05/29/2021 08:00:18 AM EDT [facility] SPEC EXP DATE 06/01/2021ATI ENT ABO/Rh A POSITIVEANTIBODY SCREEN NEGATIVETESTING SITE PERFORMED AT [address] [employer] [place] [address] COMMENT BLOOD TYPE CONFIRMED. Name Value Range Interpretation Code Description Data [facility](s) Supporting Document(s) ID Date Data Source [id number] 05/25/2021 08:45:17 AM EDT [facility] SPEC EXP DATE 05/28/2021ATI ENT ABO/Rh A POSITIVEANTIBODY SCREEN NEGATIVETESTING SITE PERFORMED AT [address] [facility] [place] [address] COMMENT BLOOD TYPE CONFIRMED. Name Value Range Interpretation Code Description Data Gabby rce(s) Supporting Document(s) ID Date Data Source [id number] 05/22/2021 12:52:34 PM EDT [facility] Name Value Range Interpretation Code Description Data Gabby rce(s) Supporting Document(s) WBC 9.5 10*3/uL (4.1-11.0) [facility] [place] RBC 3.85 10*6/uL (4.00-5.40) L [facility] HGB 12.0 g/dL (12.0-16.0) [facility] HCT 35.6 % (36.0-47.0) L [facility] MCV 92.3 fL (80.0-95.0) [facility] MCH 31.2 pg (27.0-32.0) [facility] MCHC 33.8 g/dL (32.0-36.0) [facility] RDW 13.7 % (10.5-14.5) [facility] PLT 207 10*3/uL (150-450) [facility] MPV 8.1 fL (7.1-10.7) [facility] ID Date Data Source [id number] 05/22/2021 01:13:53 PM EDT [facility] Name Value Range Interpretation Code Description Data Gabby rce(s) Supporting Document(s) COLOR [facility] APPEARANCE [facility] SPEC GRAV URINE 1.006 (1.003-1.030) [facility] PH URINE 6.5 (5.0-7.5) [facility] LEUK ESTERASE (NEG) [facility] NITRITE URINE (NEG) [facility] PROTEIN URINE (NEG) [facility] GLUCOSE URINE (NEG) [facility] KETONE URINE (NEG) [facility] [place] UROBILINOGEN 0.2 mg/dL (0-1.0) [facility] [place] BILIRUBIN URINE (NEG) [facility] BLOOD/HGB URINE (NEG) [facility] URINE WBC (0-5) [facility] URINE RBC (0-2) [facility] EPITHELIAL CELLS 1+ [HPF] [facility] ID Date Data Source [id number] 05/22/2021 10:41:00 AM EDT [facility] DATE OF EXAM: 05/22/2021XAM: Ultrasound umbilical artery Doppler HISTORY: PROM, IUGR. COMPARISON: 05/19/2021 . FINDINGS: There is a single active intrauterine in breech presentation with a heart rate of 146 BPM. The cord Doppler S/D ratio equals 2.34 (normal mean = 3.23 ). This previously measured 2.20. Professional interpretation performed at [facility] .End of diagnostic report for accession: [id number] Interpreted: Marv Remy MDTranscribed: 05/22/2021 10:37 AMSigned: 05/22/2021 10:41 AM Marv Remy MD [facility] ACC # [id number] BILL # [id number] Name Value Range Interpretation Code Description Data Gabby rce(s) Supporting Document(s) ID Date Data Source [id number] 05/21/2021 09:48:31 PM EDT [facility] SPEC EXP DATE 05/24/2021ATI ENT ABO/Rh A POSITIVEANTIBODY SCREEN NEGATIVETESTING SITE PERFORMED AT [address] [place] [address] BANK COMMENT BLOOD TYPE CONFIRMED. Name Value Range Interpretation Code Description Data Gabby rce(s) Supporting Document(s) ID Date Data Source [id number] 05/21/2021 02:46:03 PM EDT [facility] Name Value Range Interpretation Code Description Data Gabby rce(s) Supporting Document(s) HOLD TUBE PINK [facility] CANCHOLA ID Date Data Source [id number] 05/19/2021 09:31:00 AM EDT [facility] DATE OF EXAM: 05/19/2021XAM: US Pregnan [...] oligohydramnios in position. Professional interpretation performed at [facility] .End of diagnostic report for accession: [id number] Interpreted: Marv James MDTranscribed: 05/19/2021 09:24 AMSigned: 05/19/2021 09:31 AM Marv James MD [facility] ACC # [id number] BILL # [id number] Name Value Range Interpretation Code Description Data Gabby rce(s) Supporting Document(s) ID Date Data Source [id number] 05/19/2021 09:31:00 AM EDT [facility] DATE [...] oligohydramnios in position. Professional interpretation performed at [facility] .End of diagnostic report for accession: [id number] Interpreted: Marv James MDTranscribed: 05/19/2021 09:24 AMSigned: 05/19/2021 09:31 AM Marv James MD [facility] # [id number] [facility] # [id number] Name Value Range Interpretation Code Description Data Gabby rce(s) Supporting Document(s) ID Date Data Source [id number] 05/17/2021 01:00:38 PM EDT [facility] ANTIBODY SCREEN NEGATIVESPEC EXP DATE 05/20/2021TESTING SITE PERFORMED AT [address] [place] [address] BANK COMMENT BLOOD TYPE CONFIRMED. Name Value Range Interpretation Code Description Data Gabby e(s) Supporting Document(s) ANTIBODY SCREEN [facility] ANTIBODY SCREEN NEGATIVE ID Date Data Source [id number] 05/16/2021 09:58:24 AM EDT [facility] Name Value Range Interpretation Code Description Data Gabby rce(s) Supporting Document(s) WBC 7.6 10*3/uL (4.1-11.0) [facility] [place] RBC 3.86 10*6/uL (4.00-5.40) L [facility] HGB 11.8 g/dL (12.0-16.0) L [facility] HCT 35.6 % (36.0-47.0) L [facility] MCV 92.4 fL (80.0-95.0) [facility] MCH 30.5 pg (27.0-32.0) [facility] MCHC 33.0 g/dL (32.0-36.0) [facility] RDW 13.9 % (10.5-14.5) [facility] PLT 208 10*3/uL (150-450) [facility] MPV 8.0 fL (7.1-10.7) [facility] ID Date Data Source [id number] 05/15/2021 12:16:00 PM EDT [facility] DATE OF EXAM: 05/15/2021XAM: Uterus Ltd, [...] os. 3. Oligohydramnios. Professional interpretation performed at [facility] .End of diagnostic report for accession: [id number] Interpreted: Feliciano Castellanos MDTranscribed: 05/15/2021 12:14 PMSigned: 05/15/2021 12:16 PM Feliciano Castellanos MD [facility] ACC # [id number] BILL # [id number] Name Value Range Interpretation Code Description Data Gabby e(s) Supporting Document(s) ID Date Data Source [id number] 05/15/2021 12:16:[address] [facility] DATE OF EXAM: 05/15/2021XAM: Uterus Ltd, US [...] os. 3. Oligohydramnios. Professional interpretation performed at [facility] .End of diagnostic report for accession: [id number] Interpreted: Feliciano Castellanos MDTranscribed: 05/15/2021 12:14 PMSigned: 05/15/2021 12:16 PM Feliciano Castellanos MD [facility] ACC # [id number] BILL # [id number] Name Value Range Interpretation Code Description Data Gabby rce(s) Supporting Document(s) ID Date Data Source [id number] 05/14/2021 08:02:10 AM EDT [facility] ANTIBODY SCREEN NEGATIVESPEC EXP DATE 05/17/2021TESTING SITE PERFORMED AT [address] [place] [address] BANK COMMENT BLOOD TYPE CONFIRMED. Name Value Range Interpretation Code Description Data Gabby rce(s) Supporting Document(s) ID Date Data Source [id number] 05/12/2021 01:16:00 PM EDT [facility] [...] . K3End of diagnostic report for accession: [id number] Interpreted: Marv Remy MDTranscribed: 05/12/2021 01:11 PMSigned: 05/12/2021 01:16 PM Marv Remy MD [facility] ACC # [id number] BILL # [id number] Name Value Range Interpretation Code Description Data Gabby rce(s) Supporting Document(s) ID Date Data Source [id number] 05/12/2021 01:16:00 PM EDT [facility] DATE OF EXAM: 05/12/2021XAM: Ultrasound [...] . K3End of diagnostic report for accession: [id number] Interpreted: Marv Remy MDTranscribed: 05/12/2021 01:11 PMSigned: 05/12/2021 01:16 PM Marv Remy MD [facility] ACC # [id number] BILL # [id number] Name Value Range Interpretation Code Description Data Gabby rce(s) Supporting Document(s) ID Date Data Source [id number] 05/10/2021 02:09:00 PM EDT [facility] DATE OF EXAM: 05/10/2021XAM: Ultrasound vascular: Bilateral [...] thrombosis. X1End of diagnostic report for accession: [id number] Interpreted: Latanya Paulson MDTranscribed: 05/10/2021 02:09 PMSigned: 05/10/2021 02:09 PM Latanya Paulson MD [facility] ACC # [id number] BILL # [id number] Name Value Range Interpretation Code Description Data Gabby rce(s) Supporting Document(s) ID Date Data Source [id number] 05/10/2021 10:46:50 AM EDT [facility] SPEC EXP DATE 05/13/2021ATI ENT ABO/Rh A POSITIVEANTIBODY SCREEN NEGATIVETESTING SITE PERFORMED AT [address] [place] [address] COMMENT BLOOD TYPE CONFIRMED. Name Value Range Interpretation Code Description Data Gabby rce(s) Supporting Document(s) ID Date Data Source [id number] 05/07/2021 05:58:59 PM EDT [facility] Name Value Range Interpretation Code Description Data [place] [facility](s) Supporting Document(s) Test Name [facility] ospital Performing Lab [facility] Test Result [facility] ID Date Data Source [id number] 05/07/2021 01:11:00 [facility]: 1EXAM: Ultrasound obstetrical. [...] spine. K3End of diagnostic report for accession: [id number] Interpreted: Marv Remy MDTranscribed: 05/07/2021 01:06 PMSigned: 05/07/2021 01:11 PM Marv Remy MD [facility] ACC # [id number] BILL # [id number] Name Value Range Interpretation Code Description Data Gabby rce(s) Supporting Document(s) ID Date Data Source [id number] 05/06/2021 07:34:05 AM EDT [facility] [place] SPEC EXP DATE 1PATI ENT ABO/Rh A POSITIVEANTIBODY SCREEN NEGATIVETESTING SITE PERFORMED AT [address] [place] [address] COMMENT BLOOD TYPE CONFIRMED. Name Value Range Interpretation Code Description Data [place] [facility](s) Supporting Document(s) TYPE AND SCREEN [facility] PATIENT ABO/Rh A POSITIVE ID Date Data Source [id number] 05/05/2021 12:56:[address] [facility] DATE OF EXAM: 1EXAM: Ultrasound obstetrical. HISTORY: [...] weeks 5 days. Predicted gestational age from [facility] of 08/15/2021 is 25 weeks 3 days. [...] the normal range. Professional interpretation performed at [facility] .End of diagnostic report for accession: [id number] Interpreted: Marv Remy MDTranscribed: 05/05/2021 12:49 PMSigned: 05/05/2021 12:56 PM Marv Remy MD [facility] ACC # [id number] BILL # [id number] Name Value Range Interpretation Code Description Data Gabby rce(s) Supporting Document(s) ID Date Data Source [id number] 05/05/2021 12:56:[address] [facility] DATE OF EXAM: 05/05/2021XAM: Ultrasound obstetrical. HISTORY: [...] the normal range. Professional interpretation performed at [facility] .End of diagnostic report for accession: [id number] Interpreted: Marv Remy MDTranscribed: 05/05/2021 12:49 PMSigned: 05/05/2021 12:56 PM Marv Remy MD [facility] # [id number] BILL # [id number] Name Value Range Interpretation Code Description Data [facility](s) Supporting Document(s) ID Date Data Source [id number] 05/02/2021 09:24:42 AM EDT [facility] SPEC EXP DATE 05/05/2021ATI ENT ABO/Rh A POSITIVEANTIBODY SCREEN NEGATIVETESTING SITE PERFORMED AT [address] [place] [address] BANK COMMENT BLOOD TYPE CONFIRMED. Name Value Range Interpretation Code Description Data [facility](s) Supporting Document(s) ID Date Data Source [id number] 04/28/2021 01:29:14 PM EDT [facility] Name Value Range Interpretation Code Description Data [facility](s) Supporting Document(s) POC GLUCOSE 81 mg/dL (70-99) [facility] PERFORMED BY CLINICAL STAFF ID Date Data Source [id number] 04/28/2021 12:19:31 PM EDT [facility] SPEC EXP DATE 05/01/2021ATI ENT ABO/Rh A POSITIVEANTIBODY SCREEN NEGATIVETESTING SITE PERFORMED AT [address] [place] [address] COMMENT BLOOD TYPE CONFIRMED. Name Value Range Interpretation Code Description Data Gabby rce(s) Supporting Document(s) ID Date Data Source [id number] 04/28/2021 02:54:01 PM EDT [facility] Name Value Range Interpretation Code Description Data Gabby rce(s) Supporting Document(s) SPECIMEN DESCRIPTION [facility] C. TRACHOMATIS (NEG) [facility] THIS ASSAY AMPLIFIES AND DETECTS TARGETD NA USING MANAGER ROOM-MEDIATEDAMPLIFICATION N. GONORRHOEAE (NEG) [facility] THIS ASSAY AMPLIFIES AND DETECTS TARGETD NA USING MANAGER ROOM-MEDIATEDAMPLIFICATION COMMENT [facility] SPECIMEN COLLECTIONTHE PATIENT CAPRICE ULD NOT HAVE URINATED FOR ATLEAST ONE HOUR PRIOR TO COLLECTION.FEMALE PATIENTS SHOULD NOT CLEANSE PRIOR TOCOLLECTING URINE SPECIMENS THIS MAYINTERFERE WITH THE TEST.THE PATIENT SHOULD PROVIDE 20-30 ML OF THEINITIAL URINE STREAM INTO A CONTAINERWITHOUT PRESERVATIVES. ID Date Data Source [id number] 04/24/2021 08:47:32 PM EDT [facility] SPEC EXP DATE 04/27/2021ATI ENT ABO/Rh A POSITIVEANTIBODY SCREEN NEGATIVETESTING SITE PERFORMED AT [address] [place] [address] COMMENT BLOOD TYPE CONFIRMED. Name Value Range Interpretation Code Description Data Gabby rce(s) Supporting Document(s) ID Date Data Source [id number] 04/23/2021 05:53:21 PM EDT [facility] Name Value Range Interpretation Code Description Data Gabby rce(s) Supporting Document(s) COLOR [facility] APPEARANCE [facility] SPEC GRAV URINE 1.025 (1.003-1.030) [facility] PH URINE 6.0 (5.0-7.5) [facility] LEUK ESTERASE (NEG) [facility] CRITERIA FOR CULTURE NOT MET.CULTURE CAN BE ADDED WITHIN 36 HOURS OFCOLLECTION. NITRITE URINE (NEG) [facility] PROTEIN URINE (NEG) [facility] GLUCOSE URINE (NEG) [facility] KETONE URINE (NEG) [facility] UROBILINOGEN 1.0 mg/dL (0-1.0) [facility] BILIRUBIN URINE (NEG) [facility] BLOOD/HGB URINE (NEG) [facility] ID Date Data Source [id number] 04/21/2021 10:35:46 PM EDT [facility] Name Value Range Interpretation Code Description Data Gabby rce(s) Supporting Document(s) HIV 1/2 SCREEN @ (NEG) [facility] Testing performed using Siemens [employer] taur 4th gen CHIV combo assay.This assay detects the HIV1 p24 antigenin addition to antibodies to HIV1 and HIV2. ID Date Data Source [id number] 04/21/2021 04:50:00 PM EDT [facility] Name Value Range Interpretation Code Description Data Gabby rce(s) Supporting Document(s) SARS coronavirus 2 RNA [Presence] in Res piratory specimen by [place] with probe detection NOT DETECTED [facility] This lab was reported by [facility]. ID Date Data Source [id number] 04/21/2021 08:45:14 PM EDT [facility] Name Value Range Interpretation Code Description Data Gabby rce(s) Supporting Document(s) SPECIMEN DESCRIPTION [facility] [place] COVID19 RESULT (NDET) Lab [facility] THIS ASSAY AMPLIFIES AND DETECTSTHE TARG ET RNA USING REAL-TIME PCR.TESTING PERFORMED ON THE Vontu COMMENT [facility] UNDER AN EMERGENCY USE AUTHORIZATION(EUA ) FOR THE DETECTION AND/OR DIAGNOSISOF THE VIRUS THAT CAUSES COVID-19.NEGATIVE 2019_NCOV RT-PCR RESULTS DONOT PRECLUDE 2019_NCOV INFECTION ANDSHOULD NOT BE USED THE SOLE BASISFOR PATIENT MANAGEMENT DECISIONS. FIRST TEST [facility] EMPLOYED IN HLTHCARE [facility] [place] SYMPTOMATIC [facility] DATE OF SYMPT ONSET [facility] [place] HOSPITALIZED [facility] [place] ICU [facility] CONGREGATE CARE SET [facility] ID Date Data Source [id number] 04/21/2021 04:20:45 PM EDT [facility] [place] Name Value Range Interpretation Code Description Data Gabby rce(s) Supporting Document(s) COLOR [facility] APPEARANCE [facility] SPEC GRAV URINE 1.006 (1.003-1.030) [facility] PH URINE 7.0 (5.0-7.5) [facility] LEUK ESTERASE (NEG) [facility] CRITERIA FOR CULTURE NOT MET.CULTURE CAN BE ADDED WITHIN 36 HOURS OFCOLLECTION. NITRITE URINE (NEG) [facility] PROTEIN URINE (NEG) [facility] GLUCOSE URINE (NEG) [facility] KETONE URINE (NEG) [facility] [facility] [place] UROBILINOGEN 0.2 mg/dL (0-1.0) [facility] [place] [facility] [place] BILIRUBIN URINE (NEG) [facility] BLOOD/HGB URINE (NEG) [facility] ID Date Data Source [id number] 04/21/2021 04:00:00 PM EDT [facility] DATE OF EXAM: 04/21/2021XAM: Ultrasound [...] cm. K3End of diagnostic report for accession: [id number] Interpreted: Marv Remy MDTranscribed: 04/21/2021 03:57 PMSigned: 04/21/2021 04:00 PM Marv Remy MD [facility] # [id number] BILL # [id number] Name Value Range Interpretation Code Description Data Gabby rce(s) Supporting Document(s) ID Date Data Source [id number] 04/24/2021 02:12:54 AM EDT [facility] Name Value Range Interpretation Code Description Data Gabby rce(s) Supporting Document(s) RUBELLA IGM AB <10.0 [facility] Reference range: <=19.9Unit: AU/mL INTER PRETIVE [...] the amount of antibody present. Performed By: [facility] [address] [place] [id number] [employer] Architect: Angella Gonzalez MD ID Date Data Source [id number] 04/22/2021 07:22:10 PM EDT [facility] SPECIMEN DESCRIPTION VAGINAL/RECT ALCULTURE RESULTS NEGATIVE: BETA HEMOLYTIC STREPTOCOCCI GROUP B B Y PCRREPORT STATUS FINAL 04/22/2021 Name Value Range Interpretation Code Description Data Gabby rce(s) Supporting Document(s) ID Date Data Source [id number] 04/22/2021 01:26:44 PM EDT [facility] Name Value Range Interpretation Code Description Data Gabby rce(s) Supporting Document(s) RUBELLA IGG AB @ [facility] IgG antibody to Rubella detected. IgGan tibody levels are at a level consideredto indicate positive immunity. ID Date Data Source [id number] 04/21/2021 10:14:09 PM EDT [facility] Name Value Range Interpretation Code Description Data Gabby rce(s) Supporting Document(s) TREPONEMA IGG/IGM @ (NEG) [facility] ID Date Data Source [id number] 04/21/2021 10:03:13 PM EDT [facility] Name Value Range Interpretation Code Description Data Gabby rce(s) Supporting Document(s) HEPATITIS B S AG @ (NEG) [facility] ID Date Data Source [id number] 04/21/2021 05:01:47 PM EDT [facility] SPEC EXP DATE 04/24/2021ATI ENT ABO/Rh A POSITIVEANTIBODY SCREEN NEGATIVETESTING SITE PERFORMED AT [address] [facility] [id number] Name Value Range Interpretation Code Description Data Gabby rce(s) Supporting Document(s) TYPE AND SCREEN [facility] o f ERICKA PATIENT ABO/Rh A POSITIVE ID Date Data Source [id number] 04/21/2021 04:15:03 PM EDT [facility] SPECIMEN DESCRIPTION VAGINAL SPEC IMENRESULT NEGATIVE FOR TRICHOMONAS VAGINALIS BY DNA PROBE NEGATIVE FOR SANGITA SPECIES BY DNA PROBE NEGATIVE FOR GARDNERELLA VAGINALIS BY DNA PROBEPERFORMED AT [address] [place] [place] [address] REPORT STATUS FINAL 04/21/2021 Name Value Range Interpretation Code Description Data Gabby rce(s) Supporting Document(s) ID Date Data Source [id number] 04/21/2021 02:55:04 PM EDT [facility] Name Value Range Interpretation Code Description Data Gabby rce(s) Supporting Document(s) WBC 10.3 10*3/uL (4.1-11.0) [facility] RBC 3.96 10*6/uL (4.00-5.40) L [facility] HGB 11.9 g/dL (12.0-16.0) L [facility] HCT 35.8 % (36.0-47.0) L [facility] PERFORMED AT [address] [place] [address] MCV 90.3 fL (80.0-95.0) [facility] MCH 30.0 pg (27.0-32.0) [facility] MCHC 33.3 g/dL (32.0-36.0) [facility] RDW 14.7 % (10.5-14.5) H [facility] PLT 221 10*3/uL (150-450) [facility] MPV 8.3 fL (7.1-10.7) [facility] ID Date Data Source [facility], [facility] 04/04/2021 12:00:00 AM EDT eCW1 ([facility]) Name Value Range Interpretation Code Description Data Gabby rce(s) Supporting Document(s) [facility], [facility] eCW1 ([facility]) ID Date Data Source GROUP B STREP CULTURE 07/19/2020 11:16:23 AM EDT eCW1 ([facility]) Name Value Range Interpretation Code Description Data Gabby rce(s) Supporting Document(s) GROUP B STREP CULTURE eCW1 ([facility]) ID Date Data Source Glucose Challenge Test 1 Hour 07/04/2020 10:36:37 AM EDT eCW 1 ([facility]) Name Value Range Interpretation Code Description Data Gabby rce(s) Supporting Document(s) 97 GLUCOSE CHALLENGE TEST 1 HOUR eCW1 ([facility]) ID Date Data Source Type and Screen (D Rh Antibody Screen) 07/04/2020 10:36:31 A M EDT eCW1 ([facility]) Name Value Range Interpretation Code Description Data Gabby rce(s) Supporting Document(s) NEGATIVE AB SCREEN (INDIRECT COOMB S)VIS eCW1 ([facility]) A POSITIVE BLOOD TYPE eCW1 ([facility]) ID Date Data Source CBC - Complete Blood Count 07/04/2020 10:36:25 AM EDT eCW1 ( [facility]) Name Value Range Interpretation Code Description Data Gabby rce(s) Supporting Document(s) 13.0 HEMOGLOBIN eCW1 ([facility]) 12.2 WHITE BLOOD COUNT eCW1 ([facility]) 4.21 RED BLOOD COUNT eCW1 ([facility]) 95.2 MEAN CORPUSCULAR VOLUME eCW1 ( [facility]) 40.1 HEMATOCRIT eCW1 ([facility]) 30.9 MEAN CORPUSCULAR HEMOGLOBIN eC W1 ([facility]) 32.4 MEAN CORPUSCULAR HGB CONC eCW1 ([facility]) 13.2 RED CELL DISTRIBUTION WIDTH eC W1 ([facility]) 265 PLATELET COUNT, AUTOMATED eCW1 ([facility]) Procedure Social History Code Duration Value Status Description Data Source(s ) Smoking 08/05/2021 12:00:00 AM EST Former Smoker completed Former Smoker eCW1 ([facility]) Smoking 04/23/2021 12:00:00 AM EDT Current some day smoker com pleted Current some day smoker eCW1 ([facility]) Smoking 04/17/2021 12:00:00 AM EDT Current some day smoker com pleted Current some day smoker eCW1 ([facility]) Smoking 04/15/2021 12:00:00 AM EDT Current some day smoker com pleted Current some day smoker eCW1 ([facility]) Smoking 04/08/2021 12:00:00 AM EDT Current some day smoker com pleted Current some day smoker eCW1 ([facility]) Smoking 04/03/2021 12:00:00 AM EDT Current some day smoker com pleted Current some day smoker eCW1 ([facility]) Smoking 03/05/2021 12:00:00 AM EDT Current some day smoker com pleted Current some day smoker eCW1 ([facility]) Smoking 03/05/2021 12:00:00 AM EDT Current some day smoker com pleted Current some day smoker eCW1 ([facility]) Smoking 02/28/2021 12:00:00 AM EDT Current some day smoker com pleted Current some day smoker eCW1 ([facility]) Smoking 02/28/2021 12:00:00 AM EDT Current some day smoker com pleted Current some day smoker eCW1 ([facility]) Smoking 02/04/2021 12:00:00 AM EDT Current some day smoker com pleted Current some day smoker eCW1 ([facility]) Smoking 11/21/2020 12:00:00 AM EST Current some day smoker com pleted Current some day smoker eCW1 ([facility]) Smoking 10/02/2020 12:00:00 AM EST Former Smoker completed Former Smoker eCW1 ([facility]) Smoking 10/02/2020 12:00:00 AM EST Former Smoker completed Former Smoker eCW1 ([facility]) Smoking 08/08/2020 12:00:00 AM EST Former Smoker completed Former Smoker eCW1 ([facility]) Smoking 08/08/2020 12:00:00 AM EST Former Smoker completed Former Smoker eCW1 ([facility]) Smoking 08/08/2020 12:00:00 AM EST Former Smoker completed Former Smoker eCW1 ([facility]) Smoking 08/08/2020 12:00:00 AM EST Former Smoker completed Former Smoker eCW1 ([facility]) Smoking 08/08/2020 12:00:00 AM EST Former Smoker completed Former Smoker eCW1 ([facility]) Smoking 08/06/2020 12:00:00 AM EST Former Smoker completed Former Smoker eCW1 ([facility]) Smoking 07/22/2020 12:00:00 AM EDT Former Smoker completed Former Smoker eCW1 ([facility]) Vital Signs ID Date Data Source UNK Name Value Range Interpretation Code Description Data Source(s) Body weight 226.6 [lb_av] 226.6 [lb_av] eCW1 ([facility]) Body height 64 [in_i] 64 [in_i] eCW1 ([facility]) Body mass index (BMI) [Ratio] 38.89 kg/m2 38.89 kg/m2 eCW1 ([facility]) Systolic blood pressure 122 mm[Hg] 122 mm[Hg] e CW1 ([facility]) Diastolic blood pressure 72 mm[Hg] 72 mm[Hg] eCW1 ([facility]) Diastolic blood pressure 78 mm[Hg] Normal (applies to non-numeric results) 78 mm[Hg] [facility] Respiratory rate 18 min Normal (applies to non-numeric results) 18 min [facility] Heart rate 85 min Normal (applies to non-numeric resul ts) 85 min [facility] Body height 162.1536 cm Normal (applies to non-numeric res ults) 162.1536 cm [facility] Body temperature 37.0 [place] Normal (applies to non-numeric results) 37.0 [place] [facility] Systolic blood pressure 116 mm[Hg] Normal (applies t o non-numeric results) 116 mm[Hg] [facility] Deprecated Oxygen saturation in Capillary blood by Oximetry 98 % Normal (applies to non-numeric results) 98 % [facility] Body mass index (BMI) [Ratio] 35.53 kg/m2 No rmal (applies to non-numeric results) 35.53 kg/m2 [facility] Body weight Measured 93.894 kg Normal (applies to n on-numeric results) 93.894 kg [facility] Diastolic blood pressure 74 mm[Hg] 74 mm[Hg] eCW1 ([facility]) Body weight 206.4 [lb_av] 206.4 [lb_av] eCW1 ([facility]) Body weight 93.62 kg 93.62 kg W1 ([facility]) Body height 64 [in_i] 64 [in_i] eCW1 ([facility]) Body mass index (BMI) [Ratio] 35.428 kg/m2 35.4 28 kg/m2 [facility] ([facility]) Systolic blood pressure 114 mm[Hg] 114 mm[Hg] e CW1 ([facility]) Body weight 206 [lb_av] 206 [lb_av] eCW1 ([facility]) Body weight 93.44 kg 93.44 kg eCW1 ([facility]) Body height 64 [in_i] 64 [in_i] eCW1 ([facility]) Body mass index (BMI) [Ratio] 35.36 kg/m2 35.36 kg/m2 eCW1 ([facility]) Systolic blood pressure 118 mm[Hg] 118 mm[Hg] e CW1 ([facility]) Diastolic blood pressure 70 mm[Hg] 70 mm[Hg] eCW1 ([facility]) Body weight 204 [lb_av] 204 [lb_av] eCW1 ([facility]) Body height 64 [in_i] 64 [in_i] eCW1 ([facility]) Body mass index (BMI) [Ratio] 35.017 kg/m2 35.0 17 kg/m2 eCW1 ([facility]) Systolic blood pressure 120 mm[Hg] 120 mm[Hg] e CW1 ([facility]) Diastolic blood pressure 70 mm[Hg] 70 mm[Hg] eCW1 ([facility]) Body weight 208 [lb_av] 208 [lb_av] eCW1 ([facility]) Body height 64 [in_i] 64 [in_i] eCW1 ([facility]) Body mass index (BMI) [Ratio] 35.7 kg/m2 35.7 k g/m2 eCW1 ([facility]) Systolic blood pressure 122 mm[Hg] 122 mm[Hg] e CW1 ([facility]) Diastolic blood pressure 58 mm[Hg] 58 mm[Hg] eCW1 ([facility]) Body weight 209.2 [lb_av] 209.2 [lb_av] eCW1 ([facility]) Body height 64 [in_i] 64 [in_i] eCW1 ([facility]) Body mass index (BMI) [Ratio] 35.909 kg/m2 35.9 09 kg/m2 eCW1 ([facility]) Systolic blood pressure 112 mm[Hg] 112 mm[Hg] e CW1 ([facility]) Diastolic blood pressure 74 mm[Hg] 74 mm[Hg] eCW1 ([facility]) Body weight 212 [lb_av] 212 [lb_av] eCW1 ([facility]) Body height 64 [in_i] 64 [in_i] eCW1 ([facility]) Body mass index (BMI) [Ratio] 36.39 kg/m2 36.39 kg/m2 eCW1 ([facility]) Heart rate 88 /min 88 /min eCW1 ([facility]) Diastolic blood pressure 72 mm[Hg] 72 mm[Hg] eCW1 ([facility]) Respiratory rate 18 /min 18 /min eCW1 ([facility]) Body temperature 98.6 [degF] 98.6 [degF] eCW1 ( [facility]) Systolic blood pressure 110 mm[Hg] 110 mm[Hg] e CW1 ([facility]) Body weight 215.8 [lb_av] 215.8 [lb_av] eCW1 ([facility]) Body height [in_i] eCW1 ([facility]) Body mass index (BMI) [Ratio] 37.04 kg/m2 37.04 kg/m2 eCW1 ([facility]) Systolic blood pressure 120 mm[Hg] 120 mm[Hg] e CW1 ([facility]) Diastolic blood pressure 70 mm[Hg] 70 mm[Hg] eCW1 ([facility]) Body weight 224 [lb_av] 224 [lb_av] eCW1 ([facility]) Diastolic blood pressure 72 mm[Hg] 72 mm[Hg] eCW1 ([facility]) Body height [in_i] eCW1 ([facility]) Body mass index (BMI) [Ratio] 38.45 kg/m2 38.45 kg/m2 eCW1 ([facility]) Systolic blood pressure 124 mm[Hg] 124 mm[Hg] e CW1 ([facility]) Body weight 229.8 [lb_av] 229.8 [lb_av] eCW1 ([facility]) Body weight 104.24 kg 104.24 kg eCW1 ([facility]) Body height [in_i] eCW1 ([facility]) Body mass index (BMI) [Ratio] 39.44 kg/m2 39.44 kg/m2 eCW1 ([facility]) Systolic blood pressure 110 mm[Hg] 110 mm[Hg] e CW1 ([facility]) Diastolic blood pressure 72 mm[Hg] 72 mm[Hg] eCW1 ([facility]) Body weight 251 [lb_av] 251 [lb_av] eCW1 ([facility]) Body height [in_i] eCW1 ([facility]) Body mass index (BMI) [Ratio] 43.084 kg/m2 43.0 84 kg/m2 eCW1 ([facility]) Systolic blood pressure 122 mm[Hg] 122 mm[Hg] e CW1 ([facility]) Diastolic blood pressure 72 mm[Hg] 72 mm[Hg] eCW1 ([facility]) Body weight 257.0 [lb_av] 257.0 [lb_av] eCW1 ([facility]) Body height [in_i] eCW1 ([facility]) Body mass index (BMI) [Ratio] 44.114 kg/m2 44.1 14 kg/m2 eCW1 ([facility]) Systolic blood pressure 128 mm[Hg] 128 mm[Hg] e CW1 ([facility]) Diastolic blood pressure 74 mm[Hg] 74 mm[Hg] eCW1 ([facility]) Body weight 257 [lb_av] 257 [lb_av] eCW1 ([facility]) Body height [in_i] eCW1 ([facility]) Body mass index (BMI) [Ratio] 44.114 kg/m2 44.1 14 kg/m2 eCW1 ([facility]) Systolic blood pressure 134 mm[Hg] 134 mm[Hg] e CW1 ([facility]) Diastolic blood pressure 78 mm[Hg] 78 mm[Hg] eCW1 ([facility]) Body weight 253 [lb_av] 253 [lb_av] eCW1 ([facility]) Body height [in_i] eCW1 ([facility]) Body mass index (BMI) [Ratio] 43.427 kg/m2 43.4 27 kg/m2 eCW1 ([facility]) Systolic blood pressure 130 mm[Hg] 130 mm[Hg] e CW1 ([facility]) Diastolic blood pressure 76 mm[Hg] 76 mm[Hg] eCW1 ([facility]) Body weight 245 [lb_av] 245 [lb_av] eCW1 ([facility]) Body height [in_i] eCW1 ([facility]) Body mass index (BMI) [Ratio] 42.054 kg/m2 42.0 54 kg/m2 eCW1 ([facility]) Systolic blood pressure 132 mm[Hg] 132 mm[Hg] e CW1 ([facility]) Diastolic blood pressure 76 mm[Hg] 76 mm[Hg] eCW1 ([facility]) Body weight 244.4 [lb_av] 244.4 [lb_av] eCW1 ([facility]) Body height [in_i] eCW1 ([facility]) Body mass index (BMI) [Ratio] 41.951 kg/m2 41.9 51 kg/m2 eCW1 ([facility]) Systolic blood pressure 130 mm[Hg] 130 mm[Hg] e CW1 ([facility]) Diastolic blood pressure 74 mm[Hg] 74 mm[Hg] eCW1 ([facility]) Patient Treatment Plan of Care Planned Activity Planned Date Details Description Data Source (s) Sertraline 25 MG Oral Tablet [Zoloft] 08/05/2021 12:00:00 AM EST eCW1 ([facility]) Minoo 0.35 MG 08/05/2021 12:00:00 AM EST eCW1 ([facility]) 168 HR Ethinyl Estradiol 0.23019 MG/HR / norelgestromin 0.89473 MG/HR Transdermal Patch [Xulane] 11/21/2020 12:00:00 AM EST eCW1 ([facility]) Escitalopram 10 MG Oral Tablet [Lexapro] 10/02/2020 12:00:00 AM EST eCW1 ([facility]) Acetaminophen 325 MG / Oxycodone Hydrochloride 5 MG Or al Tablet [Percocet] 10/02/2020 12:00:00 AM EST eCW1 ([facility]) Escitalopram 10 MG Oral Tablet [Lexapro] 10/02/2020 12:00:00 AM EST eCW1 ([facility]) Acetaminophen 325 MG / Oxycodone Hydrochloride 5 MG Or al Tablet [Percocet] 10/02/2020 12:00:00 AM EST eCW1 ([facility])
[2021-08-17 16:04] LABS: GLUCOSE, URINE (UA) MANUAL NEGATIVE (NEGATIVE); KETONE, URINE MANUAL NEGATIVE (NEGATIVE)
[2021-08-17 16:05] LABS: BILIRUBIN, URINE MANUAL NEGATIVE (NEGATIVE); UROBILINOGEN, URINE MANUAL NORMAL (NORMAL)
[2021-08-17] MEDS ORDERED: ACETAMINOPHEN 500 MG TAB PO ONE (16:05)
[2021-08-17 16:07] LABS: BACTERIA, URINE SMALL AMOUNT; HYALINE CAST, URINE NONE SEEN /lpf (0-1); RBC, URINE NONE SEEN /hpf (0-3); SQUAMOUS EPITHELIAL CELL URINE MOD AMOUNT /hpf (SMALL AMT)
[2021-08-17 16:08] LABS: BASO # 0.1 10^3/uL (0.0-0.2); BASO % 0.5 % (0.0-1.0); EOS # 0.7 10^3/uL (0.0-0.5); EOS % 6.3 % (0.0-3.0); HEMATOCRIT 40.6 % (36.0-47.0); HEMOGLOBIN 12.9 g/dl (12.0-15.5); LYMPH # 1.7 10^3/uL (1.5-5.0); LYMPH % 16.5 % (24.0-44.0); MEAN CORPUSCULAR HEMOGLOBIN 29.5 pg (27.0-33.0); MEAN CORPUSCULAR HGB CONC 31.8 g/dl (32.0-36.5); MEAN CORPUSCULAR VOLUME 92.9 fl (80.0-96.0); MONO # 0.7 10^3/uL (0.0-0.8); MONO % 6.6 % (2.0-8.0); NEUTROPHILS # 7.2 10^3/uL (1.5-8.5); NEUTROPHILS % 69.8 % (36.0-66.0); PLATELET COUNT, AUTOMATED 317 10^3/uL (150-450); RED BLOOD COUNT 4.37 10^6/uL (4.00-5.40); WHITE BLOOD COUNT 10.3 10^3/uL (4.0-10.0)
[2021-08-17] MEDS ORDERED: ISOVUE-370 76% 100ML VIAL As Ordered ONE (16:17)
[2021-08-17 16:21] LABS: INR 1.04
[2021-08-17 16:22] LABS: PARTIAL THROMBOPLASTIN TIME 31.1 SECONDS (25.9-37.0)
[2021-08-17 16:30] LABS: ALBUMIN 3.1 GM/DL (3.2-5.2); BILIRUBIN,DIRECT 0.1 MG/DL (0.0-0.2); BILIRUBIN,TOTAL 0.4 MG/DL (0.2-1.0); TOTAL PROTEIN 7.6 GM/DL (6.4-8.2)
--- NOTE | 2021-08-17 16:44 | REP ---
INDICATION: DVT LLE extensive, tachy, r/o PE COMPARISON: None. TECHNIQUE: Axial contrast enhanced images from the thoracic inlet to the upper abdomen using pulmonary embolus technique with multiplanar re-formations. 75 ml Isovue 370 intravenous contrast material administered without complication. This CT examination was performed using the following dose reduction techniques: Automated exposure control, adjustment of mA and/or kv according to the patient's size, and use of iterative reconstruction technique. FINDINGS: Pulmonary emboli identified extending from the distal aspect of the right main pulmonary artery into primarily right lower lobe pulmonary arteries and the very proximal portion of the right anterior pulmonary artery. Pulmonary emboli are also identified within 2nd order left lower lobe pulmonary artery extending into distal branches. The lung rocha are relatively clear and without consolidation, significant atelectasis, pleural effusion or pneumothorax. There is a stable 6 mm noncalcified subpleural nodule along the lateral right lung base (image 61) essentially unchanged compared to 2019. Tracheobronchial tree is patent. No obvious adenopathy. Further evaluation of the mediastinum demonstrates normal thoracic aorta and heart/pericardium. No pericardial effusion. Surrounding musculoskeletal structures are intact. IMPRESSION: 1. Extensive bilateral pulmonary emboli. 2. No associated consolidation, atelectasis or effusion. 3. 6 mm noncalcified right lower lobe nodule essentially unchanged compared to 2019. <Electronically signed by Fausto Hernandez > 08/17/21 1640
[2021-08-17] MEDS ORDERED: XARE15TA PO (17:09)
[2021-08-17] MEDS ORDERED: XARE20TA PO (17:10)
[2021-08-17] MEDS ORDERED: RIVAROXABAN 15 MG TAB (XARELTO) PO ONE (17:20)
[2021-08-17] MEDS ORDERED: NORE0.353 PO (17:27)
--- NOTE | 2021-08-17 17:44 | IPNPDOC ---
Text Note Date of Service The patient was seen on 08/17/21. NOTE Patient is a 21-year-old G2, P2 who is approximately 10 weeks post , p resented to the ER with leg pain and was diagnosed with DVT and bilateral PE. Patient delivered on 06/11/21 at 31w6d at [facility] following a course complicated by previable PPROM at around 19wks. Pt was seen in our office for a two week incision check as well as an 8 week post visit. At her 8wk visit, the patient was started on a progestin-only control (norethindrone). Patient was seen and evaluated by ER staff and vascular surgery was consulted. From my understanding, the decision was made to treat the patient in an outpatient setting. I will defer this decision to vascular and hematology oncology. Procoagulation factors associated with return to baseline at approximately 4-6 weeks after delivery. She was on a progestin-only control method and therefore was not receiving estrogen. I would strongly recommend looking to other sources of hypercoagulation in the patient. She is not , therefore, no anticoagulation therapy is contraindicated at this time. Pt can continue taking norethindrone contraception as contraception is strongly encouraged while on anticoagulation therapy due to teratogenicity. If the plan is to discharge patient from the hospital, I strongly encourage close follow up as an outpatient with very strict precautions. VS,Fishbone, I+O VS, Fishbone, I+O Laboratory Tests 08/17/21 15:51 Vital Signs Date Time Temp Pulse Resp B/P (MAP) Pulse Ox O2 Delivery O2 Flow Rate FiO2 08/17/21 15:43 97.4 108 118/78 (91) 98 Room Air 08/17/21 14:12 18 STANISLAV HE MD Aug 17, 2021 17:44
[2021-08-17 18:39] LABS: CK-MB VALUE MASS 1.9 NG/ML (<3.6); CPK CREATINE PHOSPHOKINASE 112 U/L (26-192); TROPONIN I < 0.02 NG/ML (< 0.10)
[2021-08-17 19:13] VITALS: BP 143/87
--- NOTE | 2021-08-17 20:40 | ECGEPIP ---
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
[2021-08-21 11:34] LABS: DRVV SCREEN 61.7 SEC
[2021-08-21 11:46] LABS: PTT LUPUS TYPE ANTICOAG SCREEN 1.6 (0-1.2)
[2021-08-21 11:53] LABS: DRVV CONFIRM 48.2 SEC; LUPUS CONFIRM RATIO 1.2; NORMALIZED RATIO 1.33 (0.00-1.20)
[2021-08-24 16:07] LABS: HEXAGONAL PHASE PHOSPHOLIPID 5 sec (0-11)
[2021-08-25 11:10] LABS: ANTI THROMBIN 3 ANTIGEN IMMUNO 78 % (72-124); ANTI THROMBIN 3 FUNCT ACTIVITY 97 % (75-135); CARDIOLIPIN IGA ANTIBODY <9 APL U/mL (0-11); CARDIOLIPIN IGG ANTIBODY <9 GPL U/mL (0-14); CARDIOLIPIN IGM ANTIBODY 19 MPL U/mL (0-12); PHOSPHOLIPIDS LEVEL 280 mg/dL (150-250); PROTEIN C FUNCTIONAL ACTIVITY 138 % (73-180); PROTEIN S FUNCTIONAL ACTIVITY 46 % (63-140)
== END 2021-08-17 19:16 | disposition home or self-care (01) ==
LOC: M ED 14:11
DX: I26.99 Other pulmonary embolism without acute cor pulmonale (principal); I82.412 Acute embolism and thrombosis of left femoral vein; R91.1 Solitary pulmonary nodule; I45.19 Other right bundle-branch block; E28.2 Polycystic ovarian syndrome; Z79.899 Other long term (current) drug therapy; Z79.01 Long term (current) use of anticoagulants
CPT/HCPCS: 36415; 71275; 80047; 80076; 81000; 81015; 81240; 82550; 82553; 83880; 84311; 84702; 85025; 85300; 85301; 85303; 85305; 85598; 85610; 85613; 85730; 86147; 87086; 93005; 93971; 96374; 99284; Q9967

== ENCOUNTER 2022-04-13 10:52 | Emergency (ER) | payer OTHER ==
[~2022-04-13] VITALS: Ht 162.6 cm; Wt 77.2 kg
[~2022-04-13 10:52] MED LIST changes: +NORE0.353 PO; +SERT25TA21; +XARE15TA PO; +XARE20TA PO
[2022-04-13] MEDS ORDERED: ELIQ5TAB PO (11:39)
[2022-04-13 12:27] LABS: RSV AMPLIFICATION NEGATIVE (NEGATIVE)
[2022-04-13 12:40] LABS: HEMATOCRIT 41.4 % (36.0-47.0); HEMOGLOBIN 13.5 g/dl (12.0-15.5); MEAN CORPUSCULAR HEMOGLOBIN 30.5 pg (27.0-33.0); MEAN CORPUSCULAR HGB CONC 32.6 g/dl (32.0-36.5); MEAN CORPUSCULAR VOLUME 93.7 fl (80.0-96.0); PLATELET COUNT, AUTOMATED 282 10^3/uL (150-450); RED BLOOD COUNT 4.42 10^6/uL (4.00-5.40); WHITE BLOOD COUNT 10.6 10^3/uL (4.0-10.0)
[2022-04-13 13:23] LABS: HCG, SERUM QUALITATIVE NEGATIVE (NEGATIVE)
[2022-04-13 13:40] LABS: ACETAMINOPHEN LEVEL < 2.0 UG/ML (10.0-30.0); ALBUMIN 3.7 GM/DL (3.2-5.2); ALT/SGPT 20 U/L (12-78); BILIRUBIN,DIRECT 0.1 MG/DL (0.0-0.2); BILIRUBIN,TOTAL 0.5 MG/DL (0.2-1.0); BLOOD UREA NITROGEN 14 MG/DL (7-18); CALCIUM LEVEL 9.4 MG/DL (8.5-10.1); CARBON DIOXIDE LEVEL 24 MEQ/L (21-32); CHLORIDE LEVEL 111 MEQ/L (98-107); CREATININE FOR GFR 0.86 MG/DL (0.55-1.30); ETHYL ALCOHOL (ETHANOL) < 0.003 % (0.000-0.010); GLOMERULAR FILTRATION RATE > 60.0 (>60); GLUCOSE, FASTING 86 MG/DL (70-100); POTASSIUM SERUM 3.9 MEQ/L (3.5-5.1); SALICYLATE LEVEL 2.2 MG/DL (5.0-30.0); SODIUM LEVEL 142 MEQ/L (136-145); TOTAL PROTEIN 7.4 GM/DL (6.4-8.2)
[2022-04-13 15:26] LABS: AMPHETAMINES LEVEL URINE POSITIVE (NEGATIVE); BARBITURATES URINE NEGATIVE (NEGATIVE); BENZODIAZEPINES URINE NEGATIVE (NEGATIVE); CANNABINOIDS URINE POSITIVE (NEGATIVE); COCAINE METABOLITE URINE NEGATIVE (NEGATIVE); METHADONE URINE NEGATIVE (NEGATIVE); OPIATES URINE NEGATIVE (NEGATIVE); PHENCYCLIDINE URINE NEGATIVE (NEGATIVE)
[2022-04-13 18:49] VITALS: BP 143/89
== END 2022-04-13 20:26 | disposition home or self-care (01) ==
LOC: M ED 10:52
DX: F31.9 Bipolar disorder, unspecified (principal); F32.A Depression, unspecified; F51.01 Primary insomnia; F43.10 Post-traumatic stress disorder, unspecified; F41.9 Anxiety disorder, unspecified; F17.200 Nicotine dependence, unspecified, uncomplicated; Z88.8 Allergy status to other drugs, medicaments and biological substances

== ENCOUNTER → 2022-06-30 | Outpatient (REF) | payer OTHER ==
[~2022-06-30] MED LIST changes: +ELIQ5TAB PO
== END ==
LOC: M SFHCCAPE 12:15
PROVIDERS: ATTEND Physician Assistant
DX: R35.0 Frequency of micturition (principal)

== ENCOUNTER → 2023-02-18 | Outpatient (REF) | payer OTHER ==
[~2023-02-18] MED LIST changes: +MELA1DRO PO; -MELA1LIQ PO
== END ==
LOC: M SFHCCAPE 14:22
PROVIDERS: ATTEND Physician Assistant
DX: J02.9 Acute pharyngitis, unspecified (principal)

== ENCOUNTER → 2024-11-23 | Outpatient (REF) | payer OTHER ==
[~2024-11-23] MED LIST changes: -ARIP1TAB43; +ARIP20TA51
[2024-11-23 17:38] LABS: URINE PREG TEST NEGATIVE (NEGATIVE)
[2024-11-23 17:41] LABS: BASO # 0.1 10^3/uL (0.0-0.2); BASO % 0.8 % (0.0-1.0); EOS # 0.5 10^3/uL (0.0-0.5); EOS % 6.5 % (0.0-3.0); HEMATOCRIT 47.2 % (36.0-47.0); HEMOGLOBIN 15.6 g/dl (12.0-15.5); LYMPH # 1.8 10^3/uL (1.5-5.0); LYMPH % 23.8 % (24.0-44.0); MEAN CORPUSCULAR HEMOGLOBIN 30.6 pg (27.0-33.0); MEAN CORPUSCULAR HGB CONC 33.1 g/dl (32.0-36.5); MEAN CORPUSCULAR VOLUME 92.7 fl (80.0-96.0); MONO # 0.5 10^3/uL (0.0-0.8); NEUTROPHILS # 4.8 10^3/uL (1.5-8.5); NEUTROPHILS % 62.6 % (36.0-66.0); PLATELET COUNT, AUTOMATED 335 10^3/uL (150-450); RED BLOOD COUNT 5.09 10^6/uL (4.00-5.40); WHITE BLOOD COUNT 7.7 10^3/uL (4.0-10.0)
[2024-11-23 17:46] LABS: APPEARANCE, URINE HAZY (CLEAR); BACTERIA, URINE AUTO NEGATIVE (NEGATIVE); BILIRUBIN, URINE AUTO NEGATIVE (NEGATIVE); BLOOD, URINE BLOOD NEGATIVE (NEGATIVE); COLOR, URINE YELLOW (YELLOW); GLUCOSE, URINE (UA) AUTO NEGATIVE (NEGATIVE); KETONE, URINE AUTO NEGATIVE (NEGATIVE); LEUKOCYTE ESTERASE, URINE AUTO NEGATIVE (NEGATIVE); MUCUS, URINE SMALL (NEGATIVE); NITRITE, URINE AUTO NEGATIVE (NEGATIVE); PROTEIN, URINE AUTO NEGATIVE (NEGATIVE); RBC, URINE AUTO 0 /HPF (0-3); SQUAMOUS EPITHELIAL CELL UR AU 5 /HPF (0-6); UROBILINOGEN, URINE AUTO 0.2 mg/dL (0.0-2.0); WBC, URINE AUTO 1 /HPF (0-3)
[2024-11-23 18:32] LABS: LIPASE 29 U/L (12-53)
[2024-11-23 18:34] LABS: ALKALINE PHOSPHATASE 51 U/L (35-104); ALT/SGPT 22 U/L (7.0-40); AST/SGOT 20 U/L (<34); BILIRUBIN,TOTAL 0.6 MG/DL (0.3-1.2); BLOOD UREA NITROGEN 8 MG/DL (9-23); C REACTIVE PROTEIN QUANTITATIV < 0.50 MG/DL (<1.0); CALCIUM LEVEL 9.4 MG/DL (8.5-10.1); CARBON DIOXIDE LEVEL 21 MMOL/L (20-31); CHLORIDE LEVEL 108 MMOL/L (98-107); CREATININE FOR GFR 0.66 MG/DL (0.55-1.30); GLOMERULAR FILTRATION RATE > 60.0 (>60); GLUCOSE, FASTING 80 MG/DL (60-100); POTASSIUM SERUM 4.4 MMOL/L (3.5-5.1); SODIUM LEVEL 140 MMOL/L (136-145); TOTAL PROTEIN 7.9 G/DL (5.7-8.2)
[2024-11-23 18:36] LABS: THYROID STIMULATING HORMONE 3.188 uIU/ML (0.55-4.78)
[2024-11-23 18:37] LABS: FREE T4 1.42 NG/DL (0.89-1.76)
== END ==
LOC: M SFHCCAPE 11:46
PROVIDERS: ATTEND Physician Assistant Medical
DX: R10.84 Generalized abdominal pain (principal); R42 Dizziness and giddiness; N92.6 Irregular menstruation, unspecified

== ENCOUNTER 2025-04-04 23:14 | Emergency (ER) | payer OTHER ==
[~2025-04-04] VITALS: Ht 162.6 cm; Wt 101.8 kg
[2025-04-04 23:16] VITALS: BP 141/79; TEMP 97.7; O2SAT 98
[2025-04-04] MEDS ORDERED: ENOX40IN3 (23:22)
== END 2025-04-05 01:53 | disposition left against medical advice (07) ==
LOC: M ED 23:14
DX: Z53.21 Procedure and treatment not carried out due to patient leaving prior to being seen by health care provider (principal)

== ENCOUNTER → 2025-04-30 | Outpatient (CLI) | payer OTHER ==
[~2025-04-30] MED LIST changes: +ENOX40IN3
== END ==
LOC: M WHC 09:57
PROVIDERS: ATTEND Obstetrics & Gynecology
DX: Z34.81 Encounter for supervision of other normal pregnancy, first trimester (principal)

== ENCOUNTER → 2025-06-14 | Outpatient (CLI) | payer OTHER | LOC: M WHC 07:14 | PROVIDERS: ATTEND Obstetrics & Gynecology | DX: Z87.59 Personal history of other complications of pregnancy, childbirth and the puerperium (principal) ==

== ENCOUNTER → 2025-07-19 | Outpatient (CLI) | payer OTHER ==
[2025-07-19 15:46] LABS: PLATELET COUNT, AUTOMATED 201 10^3/uL (150-450)
== END ==
LOC: M PLALAB 13:13
PROVIDERS: ATTEND Obstetrics & Gynecology
DX: Z34.82 Encounter for supervision of other normal pregnancy, second trimester (principal)

== ENCOUNTER → 2025-08-14 | Outpatient (CLI) | payer OTHER | LOC: M WHC 13:02 | PROVIDERS: ATTEND Obstetrics & Gynecology | DX: Z34.93 Encounter for supervision of normal pregnancy, unspecified, third trimester (principal); Z3A.34 34 weeks gestation of pregnancy ==

== ENCOUNTER 2025-09-03 14:18 | Outpatient (CLI) | payer OTHER ==
[~2025-09-03] VITALS: Ht 162.6 cm; Wt 99.7 kg
[2025-09-03 14:39] VITALS: BP 139/90
[2025-09-03] MEDS ORDERED: ACET-907 PO (14:41)
[2025-09-03 15:10] VITALS: BP 117/76
[2025-09-03 15:18] VITALS: BP 122/80
[2025-09-03 15:33] VITALS: BP 126/83
[2025-09-03 15:38] LABS: BASO # 0.0 10^3/uL (0.0-0.2); BASO % 0.2 % (0.0-1.0); EOS # 0.0 10^3/uL (0.0-0.5); EOS % 0.1 % (0.0-3.0); LYMPH # 1.1 10^3/uL (1.5-5.0); LYMPH % 12.2 % (24.0-44.0); MONO # 0.5 10^3/uL (0.0-0.8); MONO % 5.6 % (2.0-8.0); NEUTROPHILS # 7.3 10^3/uL (1.5-8.5); NEUTROPHILS % 81.6 % (36.0-66.0); PLATELET COUNT, AUTOMATED 176 10^3/uL (150-450)
[2025-09-03 16:06] LABS: LDH LACTATE DEHYDROGENASE 244 U/L (120-246)
[2025-09-03 16:07] LABS: ALT/SGPT 13 U/L (7.0-40); AST/SGOT 17 U/L (<34); CREATININE FOR GFR 0.47 MG/DL (0.55-1.30); GLOMERULAR FILTRATION RATE > 90.0 (>60)
[2025-09-03 16:25] LABS: TOTAL PROTEIN,RANDOM URINE 62.7 MG/DL (0.0-14.0)
[2025-09-03] MEDS: ALBUTEROL 90 MCG/ACT 8 GM HFA INHALER INH PRN (18:23)
== END 2025-09-03 19:15 | disposition home or self-care (01) ==
LOC: M LDO 14:18
PROVIDERS: ATTEND Advanced Practice Midwife
DX: O26.893 Other specified pregnancy related conditions, third trimester (principal); O26.23 Pregnancy care for patient with recurrent pregnancy loss, third trimester; O09.213 Supervision of pregnancy with history of pre-term labor, third trimester; O34.211 Maternal care for low transverse scar from previous cesarean delivery; O99.893 Other specified diseases and conditions complicating puerperium; R06.2 Wheezing; R51.0 Headache with orthostatic component, not elsewhere classified; R60.9 Edema, unspecified; H53.8 Other visual disturbances; Z86.718 Personal history of other venous thrombosis and embolism; Z3A.35 35 weeks gestation of pregnancy
CPT/HCPCS: 36415; 59025; 82247; 82570; 83615; 84156; 84450; 84460; 84550; 85025; 87486; 87581; 87633; 87798; G0463

== ENCOUNTER → 2025-09-06 | Outpatient (REF) | payer OTHER ==
[~2025-09-06] MED LIST changes: +ACET-907 PO
== END ==
LOC: M SFHCWAGY 16:55
PROVIDERS: ATTEND Advanced Practice Midwife
DX: Z36.85 Encounter for antenatal screening for Streptococcus B (principal); Z3A.36 36 weeks gestation of pregnancy

== ENCOUNTER 2025-09-24 13:04 | Emergency (ER) | payer OTHER ==
[~2025-09-24] VITALS: Ht 162.6 cm; Wt 101.4 kg
[~2025-09-24 13:04] MED LIST changes: -ENOX40IN3; +ENOX40IN3 SQ; +PROG1CAP8 VG
[2025-09-24 13:17] VITALS: TEMP 97.9
[2025-09-24 14:30] LABS: BASO # 0.0 10^3/uL (0.0-0.2); BASO % 0.1 % (0.0-1.0); EOS # 0.0 10^3/uL (0.0-0.5); EOS % 0.4 % (0.0-3.0); LYMPH # 1.4 10^3/uL (1.5-5.0); LYMPH % 20.6 % (24.0-44.0); MONO # 0.4 10^3/uL (0.0-0.8); MONO % 6.0 % (2.0-8.0); NEUTROPHILS # 4.9 10^3/uL (1.5-8.5); NEUTROPHILS % 72.6 % (36.0-66.0); PLATELET COUNT, AUTOMATED 178 10^3/uL (150-450)
[2025-09-24 15:04] LABS: CPK CREATINE PHOSPHOKINASE 71 U/L (34-145)
[2025-09-24 15:05] LABS: CALCIUM LEVEL 8.8 MG/DL (8.5-10.1); CARBON DIOXIDE LEVEL 25 MMOL/L (20-31); CHLORIDE LEVEL 102 MMOL/L (98-107); CK-MB VALUE MASS 2.5 NG/ML (<3.6); CREATININE FOR GFR 0.55 MG/DL (0.55-1.30); GLOMERULAR FILTRATION RATE > 90.0 (>60); MB/CK RELATIVE INDEX 3.52 (< OR =4); POTASSIUM SERUM 4.0 MMOL/L (3.5-5.1); SODIUM LEVEL 136 MMOL/L (136-145)
[2025-09-24 15:09] LABS: INR 0.97
[2025-09-24 17:30] VITALS: BP 124/71; O2SAT 97
[2025-09-30] MEDS ORDERED: ACET-683 PO (16:50)
[2025-09-30] MEDS ORDERED: OXYC-517 PO (16:59)
[2025-09-30] MEDS ORDERED: ZOLO25TA PO (16:59)
== END 2025-09-24 17:45 | disposition home or self-care (01) ==
LOC: M ED 13:04
DX: R07.9 Chest pain, unspecified (principal); Z86.711 Personal history of pulmonary embolism; Z86.718 Personal history of other venous thrombosis and embolism; E28.2 Polycystic ovarian syndrome; F41.9 Anxiety disorder, unspecified; F32.A Depression, unspecified; Z91.040 Latex allergy status; F17.200 Nicotine dependence, unspecified, uncomplicated; R94.31 Abnormal electrocardiogram [ECG] [EKG]